=== PATIENT | male | born 1975 | race Hispanic/Latino ===

== ENCOUNTER 2019-07-31 01:07 | Inpatient (IN) | payer BC ==
[2019-07-31] MEDS ORDERED: Aspirin 325 MG TAB ONE (01:22)
[2019-07-31 01:33] LABS: #Basophils 0.1 thou/uL (0.0-0.2); #Eosinphils 0.1 thou/uL (0.0-0.7); #Lymphocytes 2.9 thou/uL (1.20-3.40); #Monocytes 0.7 thou/uL (0.11-0.59); #Neutrophils 4.3 thou/uL (1.40-6.50); %Basophils 1.1 % (0.0-1.0); %Eosinophils 0.7 % (0.0-10.0); %Monocytes 8.9 % (0.0-10.0); %Neutrophils 53.3 % (42.0-75.0); Hemoglobin 16.1 g/dL (14.0-18.0); Mean Corpuscular HGB CONC 34.4 g/dL (32.0-36.0); Mean Corpuscular Hemoglobin 29.9 pg (27.0-31.0); Mean Platelet Volume 8.6 fL (7.4-10.4); Platelet Count 250 thou/uL (130-400); RBC Distribution Width 12.3 % (11.5-14.5); White Blood Cell (WBC) Count 8.1 thou/uL (4.8-10.8)
[2019-07-31 01:54] LABS: ALT (SGPT) 35 U/L (8-55); AST (SGOT) 24 U/L (5-34); Albumin 4.5 g/dL (3.5-5.0); Alkaline Phosphatase 65 U/L (40-150); Anion Gap 14 mmol/L (10-20); BUN (Urea Nitrogen) 12 mg/dL (8.9-20.6); Bilirubin, Total 0.3 mg/dL (0.2-1.2); CK (CPK) 363 U/L (30-200); Calc. Creatinine Clearance 0 mL/min (70-130); Calcium 9.7 mg/dL (7.8-10.44); Carbon Dioxide 27 mmol/L (22-29); Chloride 98 mmol/L (98-107); Estimated GFR-MDRD 64; Globulin 3.8 g/dL (2.4-3.5); Glucose 178 mg/dL (70-105); Lipase 28 U/L (8-78); Potassium 3.4 mmol/L (3.5-5.1); Protein, Total 8.3 g/dL (6.0-8.3); Sodium 136 mmol/L (136-145)
[2019-07-31] MEDS ORDERED: Nitroglycerin 0.4 MG TAB 1 EACH ONE (02:21)
[2019-07-31 02:25] LABS: CKMB 5.4 ng/mL (0-6.6)
[2019-07-31] MEDS ORDERED: cloNIDine 0.1 MG TAB ONE (03:24)
[2019-07-31] MEDS ORDERED: Labetalol HCl 100 MG/20 ML VIAL ONE ×2 (04:17→04:19)
[2019-07-31 05:11] LABS: Troponin I 0.389 ng/mL (< 0.028)
[2019-07-31] MEDS ORDERED: Enoxaparin Sodium 100 MG/ML SYRINGE SC SCH (05:45)
[2019-07-31] MEDS ORDERED: Atorvastatin Calcium 40 MG TAB PO SCH (05:45)
[2019-07-31] MEDS ORDERED: Carvedilol 3.125 MG TAB PO SCH (05:45)
--- NOTE | 2019-07-31 07:50 | RAD ---
EXAM: Portable chest PROVIDED CLINICAL HISTORY: Chest pain COMPARISON: None FINDINGS: The lungs are hypoinflated, limiting evaluation. Resultant crowding of the pulmonary bronchovascular markings. Cardiac and mediastinal silhouette is within normal limits. No focal consolidation, pleural fluid or pneumothorax evident. IMPRESSION: Hypoinflated exam.
[2019-07-31 08:05] LABS: Troponin I 0.717 ng/mL (< 0.028)
[2019-07-31] MEDS ORDERED: Enoxaparin Sodium 80 MG/0.8 ML SYRINGE SC SCH (09:13)
[2019-07-31] MEDS: Enoxaparin Sodium 100 MG/ML SYRINGE SC SCH ×2 (10:29→21:07)
[2019-07-31] MEDS ORDERED: Communication Order-Pharmacy FS SCH (11:15)
[2019-07-31] MEDS ORDERED: Aspirin 325 mg Enteric Coated Tablet PO SCH (11:30)
[2019-07-31] MEDS ORDERED: Lisinopril 2.5 MG TAB PO SCH (11:30)
--- NOTE | 2019-07-31 11:59 | CON ---
DATE OF CONSULTATION: 07/31/2019 REASON FOR CONSULTATION: Fni-VA-ilkrrhypa myocardial infarction. HISTORY OF PRESENT ILLNESS: Mr. Hull is a very pleasant 44-year-old gentleman. He has been recently being having substernal chest pain. He came to the emergency room very early this morning with substernal chest pain and had relief of pain, but the cardiac enzymes have gone up slightly. The patient is pain-free now. The patient had otherwise been in good physical condition. No previous cardiac problems. He does not smoke or use tobacco. The patient did have some shortness of breath associated with the chest pain. MEDICATION: None on a regular basis. SOCIAL HISTORY: No alcohol or tobacco. ALLERGIES: NONE KNOWN. REVIEW OF SYSTEMS: CONSTITUTIONAL: No significant weight gain or loss. HEENT: Vision, no changes. Hearing, no changes. PULMONARY: Positive for shortness of breath with the chest pain. CARDIAC: Positive for chest pain. FAMILY HISTORY: Noncontributory. Negative for heart disease in a young age. PHYSICAL EXAMINATION: GENERAL: He is a pleasant 44-year-old Latin-Tu[place] gentleman, in no distress. VITAL SIGNS: Blood pressure 167/92 followed by 140/83, pulse 72 and regular. HEENT: Eyes, sclerae are nonicteric. Mouth, mucous membranes moist. NECK: Supple. No lymphadenopathy. LUNGS: Clear. No wheezing, rales, or rhonchi. CARDIAC: Normal S1. Normal S2. There is no murmur, rub, or gallop. ABDOMEN: Obese and nontender. No hepatosplenomegaly. EXTREMITIES: Warm and dry. No clubbing, cyanosis, or edema. Good peripheral pulses. Good posterior tibial and dorsalis pedis pulses. LABORATORY DATA: Troponin peak 0.717. EKG this morning is normal. He did have some [address] elevation in leads III and aVF on the initial EKG at 01:16 a.m., but the EKG had improved and was no longer significant just a minute and a half later. EKGs now normal. ASSESSMENT: 1. Dux-MB-tumdlrfwz myocardial infarction. 2. Hypertension. 3. Hypokalemia. 4. Unknown cholesterol status. PLAN: 1. Aspirin. 2. Enoxaparin. 3. Check lipids. 4. Start statins. 5. Tentatively planned cardiac catheterization on Friday. Discussed the procedure to some degree with this gentleman. We will need to further give consent with an additional person. I did discuss the procedure to some degree to explain it to him. We will also need to get informed consent to make sure he understands the risks and benefits of the procedure. Job ID: [id number]
[2019-07-31] MEDS ORDERED: Sodium Chloride 0.9% 1,000 ML IV SCH (12:00)
[2019-07-31 12:09] LABS: Cardiac Risk 6.2 (Less than 4.5)
--- NOTE | 2019-07-31 20:03 | HP ---
CHIEF COMPLAINT: Chest pain. HISTORY OF PRESENT ILLNESS: The patient is a 44-year-old male with past medical history of hypertension, currently not on any blood pressure medication, who presents to the hospital with complaints of chest pain since yesterday. The patient stated that he had pain while he was working, attributed his pain initially to work. However, when he went home, his pain worsened, and he also started having shortness of breath, so he came into the ER for further evaluation. The patient describes his pain as a tightness. Denies any nausea, vomiting, or diaphoresis. Denies any radiating of his pain. PAST MEDICAL HISTORY: Hypertension. ALLERGIES: HE HAS NO KNOWN DRUG ALLERGIES. MEDICATIONS: He takes no medication. REVIEW OF SYSTEMS: All negative except for the ones mentioned above in the HPI. SOCIAL HISTORY: The patient denies any alcohol use, drug use, or smoking history. He is a full code. Lives with his family. PHYSICAL EXAMINATION: VITAL SIGNS: Temperature of 98.1, pulse 72, blood pressure 141/83, respiratory rate 16, and 98% on room air. GENERAL: He is awake, alert, and oriented x3. Lebanese-speaking only. HEENT: Normocephalic and atraumatic. No lymphadenopathy noted. Pupils are equal and reactive to light. CV: S1 and S2 present. No murmurs, rubs, or gallops. LUNGS: Clear to auscultation. No rhonchi or wheezes noted. ABDOMEN: Soft, nontender. Bowel sounds are present x2. EXTREMITIES: No edema. Pedal pulses present x2. NEUROLOGIC: No focal deficits noted. SKIN: No cuts, lesions, or bruises noted. DIAGNOSTIC STUDIES: LABORATORY RESULTS: As of the following; WBCs of 8.1, hemoglobin of 16.1, hematocrit of 47.0, and platelets of 250. Chemistry; sodium of 132, potassium of 3.4, BUN of 12, and creatinine of 1.23. His troponin initially was 0.060, then went up to 0.3, and then 0.7. His triglycerides are 351. His cholesterol is 216. IMAGING STUDIES: He did have a chest x-ray which was hyperinflated on exam. ASSESSMENT AND PLAN: The patient is a 44-year-old male who presents to the hospital with complaints of chest pain. 1. Iea-UK-pibzltm elevation myocardial infarction. We will put the patient on enoxaparin. Cardiology has been consulted. Also, continue aspirin and statin. Possible, the patient will undergo cardiac cath on Friday. 2. Hypertension, uncontrolled. The patient is not currently on any medications. We will put him on a low-sodium diet. Also, we will start him on some blood pressure medications and continue to monitor. 3. Obesity. We will continue to educate patient about weight loss, diet, and exercise. 4. Deep venous thrombosis prophylaxis. The patient is already on Lovenox. Job ID: [id number]
[2019-07-31] MEDS: Carvedilol 3.125 MG TAB PO SCH (21:07)
[2019-08-01] MEDS ORDERED: Lisinopril 2.5 MG TAB PO SCH ×3 (09:00→09:45)
[2019-08-01] MEDS: Enoxaparin Sodium 100 MG/ML SYRINGE SC SCH ×2 (10:09→21:22)
[2019-08-01] MEDS: Aspirin 325 mg Enteric Coated Tablet PO SCH (10:09)
[2019-08-01] MEDS: Carvedilol 3.125 MG TAB PO SCH ×2 (10:09→21:21)
[2019-08-01] MEDS: Atorvastatin Calcium 40 MG TAB PO SCH (10:09)
--- NOTE | 2019-08-01 13:40 | PDOC.HOSPP ---
- Subjective Encounter Date: 08/01/19 Encounter Time: 09:00 Subjective: pt up in bed no complains - Objective Vital Signs & Weight: Vital Signs (12 hours) Temp Pulse Resp BP Pulse Ox 08/01/19 11:30 98 F 61 18 144/80 H 97 08/01/19 10:10 58 L 08/01/19 10:08 58 L 08/01/19 08:00 98 F 85 18 141/92 H 98 08/01/19 04:00 97.9 F 58 L 18 158/82 H 96 Weight Weight 210 lb 12.8 oz I&O: 07/31/19 08/01/19 08/02/19 06:59 06:59 06:59 Intake Total 1200 Output Total 510 Balance 690 Result Diagrams: 07/31/19 01:21 07/31/19 01:21 Hospitalist ROS - Review of Systems Respiratory: denies: cough, dry, shortness of breath, hemoptysis, SOB with excertion, pleuritic pain, sputum, wheezing, other Cardiovascular: denies: chest pain, palpitations, orthopnea, paroxysmal noc. dyspnea, edema, light headedness, other Gastrointestinal: denies: nausea, vomitting, abdominal pain, diarrhea, constipation, melena, hematochezia, other - Medication Medications: Active Medications Generic Name Dose Route Start Last Admin Trade Name Freq PRN Reason Stop Dose Admin Aspirin 325 mg 08/01/19 09:00 08/01/19 10:09 Ecotrin PO 325 mg DAILY HARRIETT Administration Atorvastatin Calcium 40 mg 08/01/19 09:00 08/01/19 10:09 Lipitor PO 40 mg DAILY HARRIETT Administration Carvedilol 3.125 mg 07/31/19 21:00 08/01/19 10:09 Coreg PO 3.125 mg BID HARRIETT Administration Enoxaparin Sodium 100 mg 07/31/19 09:00 08/01/19 10:09 Lovenox SC 08/01/19 22:00 100 mg 0900,2100 HARRIETT Administration - Exam Heart: negative: RRR, no murmur, no gallops, no rubs, normal peripheral pulses, irregular, diminshed peripheral pulses, murmur present, II/IV, III/IV Respiratory: negative: CTAB, no wheezes, no rales, no ronchi, normal chest expansion, no tachypnea, normal percussion, rales, rhonchi, tachypneic, wheezes Gastrointestinal: negative: soft, non-tender, non-distended, normal bowel sounds , no palpable masses, no hepatomegaly, no splenomegaly, no bruit, no guarding, no rigidity, tender to palpation, distended, diminished bowl sounds, voluntary guarding Hosp A/P (1) NSTEMI (non-ST elevated myocardial infarction) Code(s): I21.4 - NON-ST ELEVATION (NSTEMI) MYOCARDIAL INFARCTION Status: Acute (2) HTN (hypertension) Code(s): I10 - ESSENTIAL (PRIMARY) HYPERTENSION Status: Acute (3) Obesity Code(s): E66.9 - OBESITY, UNSPECIFIED Status: Acute - Plan will continue lovonox for now. npo after midnight for cardiac cath. will adjust bp meds.
[2019-08-02] MEDS: Sodium Chloride 0.9% 1,000 ML IV SCH ×2 (06:24→17:54)
[2019-08-02] MEDS: Carvedilol 3.125 MG TAB PO SCH (06:29)
[2019-08-02] MEDS: Aspirin 325 mg Enteric Coated Tablet PO SCH (07:48)
[2019-08-02] MEDS ORDERED: Lidocaine 1% (PF) 30 ML VIAL ONE (08:36)
[2019-08-02] MEDS: Atorvastatin Calcium 40 MG TAB PO SCH (08:50)
[2019-08-02] MEDS ORDERED: Lisinopril 5 MG TAB PO SCH (09:00)
[2019-08-02] MEDS ORDERED: Lisinopril 2.5 MG TAB PO SCH (09:00)
[2019-08-02] MEDS ORDERED: Fentanyl 100 MCG/2 ML VIAL ONE (09:13)
[2019-08-02] MEDS ORDERED: Midazolam HCl 2 mg/2 ml Vial ONE (09:13)
[2019-08-02] MEDS ORDERED: Metoprolol Tartrate 5 MG/5 ML VIAL ONE (09:33)
[2019-08-02] MEDS ORDERED: Carvedilol 3.125 MG TAB PO SCH (09:34)
[2019-08-02] MEDS ORDERED: Carvedilol 6.25 MG TAB PO SCH (09:45)
[2019-08-02] MEDS ORDERED: Nitroglycerin 2% Ointment 1 INCH/1 GM Packet ONE (09:47)
[2019-08-02] MEDS ORDERED: Acetaminophen/Codeine 30-300mg Tablet PO PRN ×2 (10:02)
[2019-08-02] MEDS ORDERED: Sodium Chloride 0.9% 200 ML IV PRN (10:02)
[2019-08-02] MEDS ORDERED: Iopamidol 370 76% 100 ML VIAL ONE (10:04)
--- NOTE | 2019-08-02 16:47 | EKG ---
Test Reason : Blood Pressure : / mmHG Vent. Rate : 071 BPM Atrial Rate : 071 BPM P-R Int : 138 ms QRS Dur : 086 ms QT Int : 382 ms P-R-T Axes : 020 039 030 degrees QTc Int : 415 ms Normal sinus rhythm Normal ECG Confirmed by ZACK ZHANG ([id number]) on 08/02/2019 4:47:26 PM Referred By: Confirmed By:ZACK ZHANG
--- NOTE | 2019-08-02 17:21 | PDOC.HOSPP ---
- Subjective Encounter Date: 08/02/19 Encounter Time: 13:00 Subjective: pt up in bed no complains - Objective Vital Signs & Weight: Vital Signs (12 hours) Temp Pulse Resp BP BP Pulse Ox 08/02/19 16:00 98.3 F 65 16 131/73 99 08/02/19 12:00 98.4 F 60 16 132/76 99 08/02/19 11:33 125/80 08/02/19 08:50 63 08/02/19 08:49 63 08/02/19 07:33 97.9 F 63 18 160/92 H 99 Weight Weight 210 lb 12.8 oz I&O: 08/01/19 08/02/19 08/03/19 06:59 06:59 06:59 Intake Total 1200 1730 240 Output Total 510 650 Balance 690 1080 240 Result Diagrams: 07/31/19 01:21 07/31/19 01:21 Hospitalist ROS - Review of Systems Cardiovascular: denies: chest pain, palpitations, orthopnea, paroxysmal noc. dyspnea, edema, light headedness, other Gastrointestinal: denies: nausea, vomitting, abdominal pain, diarrhea, constipation, melena, hematochezia, other Genitourinary: denies: dysuria, frequency, incontinence, hematuria, retention, other - Medication Medications: Active Medications Generic Name Dose Route Start Last Admin Trade Name Rogersq PRN Reason Stop Dose Admin Aspirin 325 mg 08/01/19 09:00 08/02/19 07:48 Ecotrin PO Not Given DAILY [facility] Atorvastatin Calcium 40 mg 08/01/19 09:00 08/02/19 08:50 Lipitor PO 40 mg DAILY HARRIETT Administration - Exam Neck: negative: supple, symmetric, no JVD, no thyromegaly, no lymphadenopathy, no carotid bruit, JVD Heart: negative: RRR, no murmur, no gallops, no rubs, normal peripheral pulses, irregular, diminshed peripheral pulses, murmur present, II/IV, III/IV Respiratory: negative: CTAB, no wheezes, no rales, no ronchi, normal chest expansion, no tachypnea, normal percussion, rales, rhonchi, tachypneic, wheezes Skin - other findings: right groin site appears intact, good pedal pulses Hosp A/P (1) NSTEMI (non-ST elevated myocardial infarction) Code(s): I21.4 - NON-ST ELEVATION (NSTEMI) MYOCARDIAL INFARCTION Status: Acute (2) HTN (hypertension) Code(s): I10 - ESSENTIAL (PRIMARY) HYPERTENSION Status: Acute (3) Obesity Code(s): E66.9 - OBESITY, UNSPECIFIED Status: Acute - Plan will continue lovonox for now. npo after midnight for cardiac cath. will adjust bp meds. 08/02 pt underwent a cardiac cath. Has 3 vessel disease. CV surgery has been consulted. will titrate his bp meds. He has been started on statin.
[2019-08-02] MEDS ORDERED: Communication Order-Pharmacy FS SCH (18:06)
[2019-08-02 18:53] LABS: Hemoglobin A1c 5.8 % (4.0-6.0)
[2019-08-02] MEDS: Carvedilol 6.25 MG TAB PO SCH (22:06)
--- NOTE | 2019-08-02 22:10 | CON ---
DATE OF CONSULTATION: HISTORY OF PRESENT ILLNESS: A 44-year-old gentleman who works in local [employer] shop [employer] previously in good health until he developed chest pain, nausea, and dyspnea prompting emergency room visit, noted to have an elevated troponin. He from there, underwent cardiac catheterization today by Dr. Lr, where he was found to have three-vessel coronary disease. His resting EKG showed some T-wave flattening anterolaterally. Cardiac cath showed 60% to 70% LAD and diagonal lesions. Circumflex consisted of a 1st obtuse marginal, perhaps with a 40% lesion and a 2nd obtuse marginal that was rather small with about a 90% lesion. The right coronary artery had serial lesions with one being about 80% or 90%. Distally, he had multiple small branches that may not be bypassable and the distal right might be a target. PAST MEDICAL HISTORY: Includes hypertension, currently on no medications. He has last seen a doctor a year or 2 ago. Since this admission, he was noted to have a blood sugar of about 180. His cholesterol was 211 and his triglycerides were greater than 300. PAST SURGICAL HISTORY: Negative. SOCIAL HISTORY: He has never been a smoker or drinker. He is , Sudanese-speaking only. PHYSICAL EXAMINATION: GENERAL: He is an alert, cooperative gentleman. VITAL SIGNS: Height 5 feet 2 inches, weight 210, BMI 38. NECK: No carotid bruits. CARDIAC: Regular rate and rhythm with perhaps a soft systolic murmur at the right upper sternal border. ABDOMEN: Obese. EXTREMITIES: Without edema with a palpable pedal pulse in both feet. His left arm is nondominant and he has a good Amos test on his left arm. ASSESSMENT AND PLAN: Potential targets include an LAD, distal right coronary artery. Whether the distal OM is bypassable, we will have to see during surgery and the diagonals may be a target, although he has noncritical disease. I have gone over the procedure, risk and complications through an gm on the floor and informed consent has been obtained. Job ID: [id number]
[2019-08-03] MEDS: Carvedilol 6.25 MG TAB PO SCH ×2 (05:28→20:33)
[2019-08-03] MEDS ORDERED: Nitroglycerin 0.4 MG TAB (25 Tab Bottle) ONE (06:08)
[2019-08-03] MEDS: Lisinopril 5 MG TAB PO SCH (06:10)
[2019-08-03] MEDS: Nitroglycerin 0.4 MG TAB (25 Tab Bottle) SL PRN ×2 (06:12→06:20)
[2019-08-03] MEDS ORDERED: hydrALAZINE 20 MG/ML VIAL SLOW IVP PRN (06:28)
[2019-08-03] MEDS ORDERED: Morphine 2 MG/ML SYRINGE SLOW IVP SCH (06:30)
[2019-08-03] MEDS ORDERED: Albumin 5% 0 ML ONE (06:31)
[2019-08-03] MEDS ORDERED: Fentanyl 100 MCG/2 ML VIAL ONE ×2 (06:34→08:01)
[2019-08-03] MEDS ORDERED: Midazolam HCl 2 mg/2 ml Vial ONE (06:34)
[2019-08-03] MEDS ORDERED: Midazolam HCl 5 mg/5 ml Vial ONE (06:34)
[2019-08-03] MEDS ORDERED: Dexmedetomidine 200 MCG/2 ML VIAL ONE (06:35)
[2019-08-03] MEDS ORDERED: Vecuronium 10 MG VIAL ONE (06:35)
[2019-08-03] MEDS ORDERED: Nitroglycerin 50 MG/250 ML BOT 250 ML ONE (06:45)
[2019-08-03] MEDS ORDERED: Heparin 10,000 UNITS/1 ML VIAL 30,000 UNITS in Sodium Chloride 0.9% 1,000 ML FS SCH (06:45)
[2019-08-03] MEDS ORDERED: Morphine 2 MG/ML SYRINGE SLOW IVP PRN (07:07)
[2019-08-03] MEDS ORDERED: Lidocaine 1% (PF) 30 ML VIAL ONE ×2 (07:14→10:00)
[2019-08-03] MEDS ORDERED: Heparin 5,000 UNITS/ML VIAL SLOW IVP SCH (07:15)
[2019-08-03] MEDS ORDERED: Nitroglycerin 100MG/250ML BOT 250 ML ONE (07:39)
[2019-08-03] MEDS ORDERED: Heparin 10,000 UNITS/1 ML VIAL ONE ×2 (07:39→09:22)
[2019-08-03] MEDS ORDERED: TICAGRELOR 90 MG TABLET ONE (09:55)
[2019-08-03] MEDS ORDERED: Iopamidol 370 76% 100 ML VIAL ONE (10:05)
[2019-08-03] MEDS ORDERED: Iopamidol 370 76% 50 ML VIAL FS ONE (10:05)
--- NOTE | 2019-08-03 10:40 | PRG ---
DATE OF SERVICE: 08/03/2019 SUBJECTIVE: Mr. Otero was scheduled for bypass surgery this morning, but started having severe chest pain and had severe ST elevation in the inferior leads. It was not advisable to go directly to the operating room in the midst of myocardial infarction. Therefore, he was taken in an emergency basis to the cardiac catheterization lab, but there was found that the right coronary artery was occluded and was successfully stented with two stents. IMPRESSION AND PLAN: Please see the notes concerning that procedure. The patient was still ultimately need bypass surgery, but this was done in an emergency basis in view of the acute ST-elevation myocardial infarction. Job ID: [id number]
[2019-08-03] MEDS: Sodium Chloride 0.9% 1,000 ML IV SCH ×2 (11:09→16:39)
[2019-08-03 11:33] LABS: Troponin I 38.047 ng/mL (< 0.028)
[2019-08-03] MEDS ORDERED: Nitroglycerin 50 MG/250 ML BOT 250 ML IVPB SCH (11:45)
[2019-08-03] MEDS ORDERED: Amlodipine 5 MG TAB PO SCH (11:45)
--- NOTE | 2019-08-03 12:24 | EKG ---
Test Reason : REPEAT Blood Pressure : / mmHG Vent. Rate : 067 BPM Atrial Rate : 067 BPM P-R Int : 132 ms QRS Dur : 092 ms QT Int : 384 ms P-R-T Axes : 013 070 081 degrees QTc Int : 405 ms Normal sinus rhythm ST elevation consider inferolateral injury or acute infarct * ACUTE MD * Consider right ventricular involvement in acute inferior infarct Abnormal ECG No previous ECGs available Confirmed by DR. Adi HERMAN ([id number]) on 08/03/2019 12:24:28 PM Referred By: TY Confirmed By:DR. Adi HERMAN
[2019-08-03] MEDS ORDERED: Ondansetron PF 4 MG/2 ML Vial SLOW IVP PRN (12:35)
--- NOTE | 2019-08-03 13:02 | CCL ---
Please see the computer generated cath note. The patient had acute ST elevation myocardial infarction and was taken to the Catheterization Lab on an emergency basis. The vessel had completely occluded. A distal stent, a 3.5 x 20 nondrug coated stent was placed distally and then a 3.5 x 16 more proximal ly. There did appear to be some mild distal disease distal to the proximal stent. We dilated the vess el up to 4 mm high pressure but could never get a stent to go passed that initial stent. Dilated the vessels as mentioned to [address] the guide more deeply in the artery and put the wire very distally. A lot of maneuvers were made to try to stent the more distal area but it was not successful. The patient's chest pain and EKG changes had all resolved. He is asymptomatic. Will u ltimately still need bypass surgery.
--- NOTE | 2019-08-03 17:45 | CON ---
DATE OF CONSULTATION: HISTORY OF PRESENT ILLNESS: Branden Eastman is a 44-year-old gentleman, who speaks no Chinese. I got history from talking with the patient with the help of a niece, who states that he has no medical problems. No history of diabetes or hypertension. No previous surgeries. Having chest pain in the hospital here, while he was scheduled to undergo a bypass surgery. Emergency cardiac cath, three stents were placed in by Dr. Lr. He has severe ST-segment elevation in his inferior leads. He is now in the ICU and the reason for consult. Appears to be asymptomatic. No pain. No discomfort. PAST MEDICAL HISTORY: As noted, negative. PAST SURGICAL HISTORY: None. CHRONIC MEDICATIONS: None. ALLERGIES: NONE. SOCIAL HISTORY: He works for [employer]. REVIEW OF SYSTEMS: Ten-point negative. PHYSICAL EXAMINATION: VITAL SIGNS: Blood pressure 103/72, saturation 99%. CHEST: No wheezing or crackles. CARDIAC: Normal S1 and S2. No gallops. ABDOMEN: No masses. LABORATORY DATA: Troponin is 59. His last chest x-ray was normal. ASSESSMENT: Acute coronary syndrome, status post emergent cardiac cath and stent insertion. PLAN: Pulmonary kerr, we will continue ICU observation and cardiac care. Pulmonary will follow while in the ICU. Consultation note, 70 minutes, 50% direct patient care. Job ID: [id number]
--- NOTE | 2019-08-03 17:46 | PDOC.HOSPP ---
- Subjective Encounter Date: 08/03/19 Encounter Time: 17:45 Subjective: Pt seen for followup re; STEMI. s/p cath, feels better. - Objective Vital Signs & Weight: Vital Signs (12 hours) Temp Pulse Resp BP BP Pulse Ox 08/03/19 16:00 99.3 F 08/03/19 12:12 99.0 F 08/03/19 10:15 100 08/03/19 10:10 98.6 F 08/03/19 06:41 61 16 175/107 H 100 08/03/19 06:25 61 17 164/103 H 97 08/03/19 06:18 63 18 221/118 H 94 L 08/03/19 06:10 64 20 180/88 H 245/135 H 94 L Weight Weight 210 lb 12.8 oz Most Recent Monitor Data Heart Rate from ECG 67 NIBP 124/82 NIBP BP-Mean 96 Respiration from ECG 20 SpO2 100 I&O: 08/02/19 08/03/19 08/04/19 06:59 06:59 06:59 Intake Total 1730 1960 230 Output Total 650 1200 300 Balance 1080 760 -70 Result Diagrams: 08/04/19 04:27 08/04/19 04:27 Additional Labs: Accuchecks 08/03/19 05:12 POC Glucose 98 labs and MARs reviewed by me EKG Reviewed by me: Yes (Tele: NSR) Hospitalist ROS - Review of Systems Respiratory: denies: cough, dry, shortness of breath, hemoptysis, SOB with excertion, pleuritic pain, sputum, wheezing Cardiovascular: denies: chest pain, palpitations, orthopnea, paroxysmal noc. dyspnea, edema, light headedness - Medication Medications: Active Medications Generic Name Dose Route Start Last Admin Trade Name Freq PRN Reason Stop Dose Admin Carvedilol 12.5 mg 08/02/19 21:00 08/03/19 05:28 Coreg PO 12.5 mg BID HARRIETT Administration Sodium Chloride 1,000 mls @ 100 mls/hr 08/03/19 10:15 08/03/19 16:39 Normal Saline 0.9% IV 1,000 mls .Q10H HARRIETT Administration Lisinopril 10 mg 08/03/19 09:00 08/03/19 06:10 Zestril PO 10 mg DAILY HARRIETT Administration Morphine Sulfate 2 mg 08/03/19 07:07 08/03/19 07:21 Morphine SLOW IVP 2 mg Q5MIN PRN Administration Pain Sodium Chloride 10 ml 08/02/19 21:00 08/03/19 11:13 Flush - Normal Saline IVF 10 ml Q12HR HARRIETT Administration - Exam General - other findings: Obese Eye: anicteric sclera ENT: moist mucosa Neck: supple Heart: RRR, no rubs Respiratory: CTAB Gastrointestinal: soft, normal bowel sounds Extremities: no edema Musculoskeletal: no muscle wasting Psychiatric: normal affect, normal behavior Hosp A/P (1) STEMI (ST elevation myocardial infarction) Status: Acute (2) HTN (hypertension) Code(s): I10 - ESSENTIAL (PRIMARY) HYPERTENSION Status: Chronic (3) Obesity Code(s): E66.9 - OBESITY, UNSPECIFIED Status: Chronic - Plan Pt s/p PCI with two stents to RCA. Plan for CABG due to CAD. BP stable.
[2019-08-03] MEDS ORDERED: Aspirin 81 mg Enteric Coated Tablet PO SCH (18:45)
[2019-08-03] MEDS: TICAGRELOR 90 MG TABLET PO SCH (20:34)
[2019-08-03 20:58] LABS: Troponin I 72.618 ng/mL (< 0.028)
[2019-08-04 04:34] LABS: #Lymphocytes 1.7 thou/uL (1.20-3.40); #Monocytes 1.3 thou/uL (0.11-0.59); #Neutrophils 8.2 thou/uL (1.40-6.50); %Basophils 0.3 % (0.0-1.0); %Eosinophils 0.3 % (0.0-10.0); %Lymphocytes 15.1 % (21.0-51.0); %Monocytes 11.4 % (0.0-10.0); %Neutrophils 72.9 % (42.0-75.0); Hemoglobin 13.9 g/dL (14.0-18.0); Mean Corpuscular HGB CONC 33.1 g/dL (32.0-36.0); Mean Corpuscular Hemoglobin 29.3 pg (27.0-31.0); Mean Corpuscular Volume 88.4 fL (78.0-98.0); Mean Platelet Volume 8.7 fL (7.4-10.4); Platelet Count 236 thou/uL (130-400); RBC Distribution Width 12.2 % (11.5-14.5); Red Blood Cell (RBC) Count 4.74 mill/uL (4.70-6.10); White Blood Cell (WBC) Count 11.2 thou/uL (4.8-10.8)
[2019-08-04 04:57] LABS: ALT (SGPT) 136 U/L (8-55); AST (SGOT) 232 U/L (5-34); Albumin 3.7 g/dL (3.5-5.0); Alkaline Phosphatase 48 U/L (40-150); Anion Gap 12 mmol/L (10-20); BUN (Urea Nitrogen) 11 mg/dL (8.9-20.6); Bilirubin, Total 0.6 mg/dL (0.2-1.2); Calc. Creatinine Clearance 150 mL/min (70-130); Calcium 8.8 mg/dL (7.8-10.44); Carbon Dioxide 24 mmol/L (22-29); Chloride 106 mmol/L (98-107); Estimated GFR-MDRD Greater than 90; Globulin 2.9 g/dL (2.4-3.5); Glucose 108 mg/dL (70-105); Potassium 3.9 mmol/L (3.5-5.1); Protein, Total 6.6 g/dL (6.0-8.3); Sodium 138 mmol/L (136-145)
[2019-08-04] MEDS: Sodium Chloride 0.9% 1,000 ML IV SCH (05:05)
--- NOTE | 2019-08-04 07:46 | EKG ---
Test Reason : Blood Pressure : / mmHG Vent. Rate : 072 BPM Atrial Rate : 072 BPM P-R Int : 138 ms QRS Dur : 094 ms QT Int : 364 ms P-R-T Axes : 009 066 087 degrees QTc Int : 398 ms Normal sinus rhythm ST elevation consider inferolateral injury or acute infarct * ACUTE PA * Abnormal ECG When compared with ECG of 31-JUL-2019 10:49, ST elevation now present in Inferior leads Non-specific change in ST segment in Lateral leads Confirmed by DR. Adi HERMAN (3) on 08/04/2019 7:46:35 AM Referred By: JOSEFINA Confirmed By:DR. Adi HERMAN
--- NOTE | 2019-08-04 08:23 | PRG ---
DATE OF SERVICE: 08/04/2019 SUBJECTIVE: This morning, no further chest pain, no shortness of breath. Status post emergency cardiac cath. OBJECTIVE: VITAL SIGNS: Saturations are 90% on room air, blood pressure 138/90, respiratory rate 18, pulse 80. CHEST: No wheezing or crackles. CARDIAC: Normal S1 and S2. No gallops. ABDOMEN: No mass. ASSESSMENT AND PLAN: 1. Coronary artery disease, status post multiple stents. 2. Mildly elevated blood sugar. Disposition as per Cardiology. Pulmonary will follow at a distance. Job ID: [id number]
[2019-08-04] MEDS: Carvedilol 6.25 MG TAB PO SCH ×2 (08:38→21:14)
[2019-08-04] MEDS: Aspirin 81 mg Enteric Coated Tablet PO SCH (08:38)
[2019-08-04] MEDS: Lisinopril 5 MG TAB PO SCH (08:39)
[2019-08-04] MEDS: TICAGRELOR 90 MG TABLET PO SCH ×2 (08:40→21:14)
--- NOTE | 2019-08-04 09:10 | PRG ---
DATE OF SERVICE: 08/04/2019 SUBJECTIVE: Mr. Jaren Otero is doing well today. He is sitting up in the chair. No complaints. OBJECTIVE: VITAL SIGNS: Blood pressure is 138/93, pulse is 75 and regular. LUNGS: Clear. CARDIAC: Normal S1, normal S2. ABDOMEN: Soft, nontender. ASSESSMENT: 1. Three-vessel coronary artery disease. 2. Status post ST-elevation myocardial infarction yesterday, treated with two stents. PLAN: 1. He is on aspirin. 2. Brilinta. 3. Lisinopril. 4. Carvedilol. 5. Add statin. 6. Transfer to telemetry. Job ID: [id number]
--- NOTE | 2019-08-04 17:16 | PDOC.HOSPP ---
- Subjective Encounter Date: 08/04/19 Encounter Time: 12:40 Subjective: Pt seen for followup re: STEMI. No complaints today. - Objective Vital Signs & Weight: Vital Signs (12 hours) Temp Pulse Pulse Pulse BP BP BP 08/04/19 16:00 98.9 F 08/04/19 12:00 98.5 F 08/04/19 09:45 75 76 158/105 H 150/94 H 08/04/19 08:39 75 152/90 H 08/04/19 08:38 152/90 H 08/04/19 07:44 08/04/19 07:00 98.9 F Pulse Ox Pulse Ox Pulse Ox 08/04/19 16:00 08/04/19 12:00 08/04/19 09:45 98 98 08/04/19 08:39 08/04/19 08:38 08/04/19 07:44 97 08/04/19 07:00 Weight Weight 210 lb 12.8 oz Most Recent Monitor Data Heart Rate from ECG 73 NIBP 127/84 NIBP BP-Mean 98 Respiration from ECG 19 SpO2 97 I&O: 08/03/19 08/04/19 08/05/19 06:59 06:59 06:59 Intake Total 1960 1154 930 Output Total 1200 1250 1050 Balance 760 -96 -120 Result Diagrams: 08/04/19 04:27 08/04/19 04:27 Additional Labs: Labs and MARs reviewed by me EKG Reviewed by me: Yes (Tele; NSR) Hospitalist ROS - Review of Systems Cardiovascular: denies: chest pain, palpitations, orthopnea, paroxysmal noc. dyspnea, edema, light headedness Gastrointestinal: denies: nausea, vomiting, abdominal pain, diarrhea, constipation, melena, hematochezia - Medication Medications: Active Medications Generic Name Dose Route Start Last Admin Trade Name Freq PRN Reason Stop Dose Admin Aspirin 81 mg 08/04/19 09:00 08/04/19 08:38 Ecotrin PO 81 mg DAILY HARRIETT Administration Carvedilol 12.5 mg 08/02/19 21:00 08/04/19 08:38 Coreg PO 12.5 mg BID HARRIETT Administration Lisinopril 10 mg 08/03/19 09:00 08/04/19 08:39 Zestril PO 10 mg DAILY HARRIETT Administration Sodium Chloride 10 ml 08/02/19 21:00 08/04/19 08:40 Flush - Normal Saline IVF 10 ml Q12HR HARRIETT Administration Ticagrelor 90 mg 08/03/19 21:00 08/04/19 08:40 Brilinta PO 90 mg BID HARRIETT Administration - Exam General - other findings: Obese Eye: anicteric sclera ENT: moist mucosa Neck: supple Heart: RRR Respiratory: CTAB Gastrointestinal: soft, non-tender Neurological: no weakness Musculoskeletal: no muscle wasting Psychiatric: normal affect, normal behavior Hosp A/P (1) STEMI (ST elevation myocardial infarction) Status: Acute (2) HTN (hypertension) Code(s): I10 - ESSENTIAL (PRIMARY) HYPERTENSION Status: Chronic (3) Obesity Code(s): E66.9 - OBESITY, UNSPECIFIED Status: Chronic - Plan s/p PCI. Plan for CABG due to multivessel CAD. BP stable.
--- NOTE | 2019-08-04 18:21 | EKG ---
Test Reason : Blood Pressure : / mmHG Vent. Rate : 068 BPM Atrial Rate : 068 BPM P-R Int : 142 ms QRS Dur : 092 ms QT Int : 402 ms P-R-T Axes : 037 -13 -52 degrees QTc Int : 427 ms Normal sinus rhythm Inferior infarct , age undetermined evolving appearance Abnormal ECG Confirmed by DR. Adi HERMAN (3) on 08/04/2019 6:21:08 PM Referred By: TY Confirmed By:DR. Adi HERMAN
[2019-08-04] MEDS: Rosuvastatin 20 MG TAB PO SCH (21:15)
[2019-08-05] MEDS: Lisinopril 5 MG TAB PO SCH (08:45)
[2019-08-05] MEDS: Aspirin 81 mg Enteric Coated Tablet PO SCH (08:45)
[2019-08-05] MEDS: Carvedilol 6.25 MG TAB PO SCH ×2 (08:45→20:30)
[2019-08-05] MEDS: TICAGRELOR 90 MG TABLET PO SCH ×2 (08:46→20:31)
[2019-08-05] MEDS ORDERED: Bisacodyl 5 MG TAB PO PRN (10:08)
[2019-08-05] MEDS ORDERED: Bisacodyl 5 MG TAB PO SCH (10:15)
[2019-08-05] MEDS ORDERED: Clopidogrel Bisulfate 300 MG TAB PO SCH (10:15)
--- NOTE | 2019-08-05 10:40 | PRG ---
DATE OF SERVICE: 08/05/2019 SUBJECTIVE: Mr. Otero is doing well at rest, but with exertion he feels chest pressure. OBJECTIVE: VITAL SIGNS: His blood pressure is 122/75, pulse 76 and regular. LUNGS: Clear. CARDIAC: Normal S1 and normal S2. ABDOMEN: Soft and nontender. ASSESSMENT: 1. Three-vessel coronary artery disease. 2. Status post ST-elevation myocardial infarction of the right coronary artery. 3. Continued exertional angina. PLAN: We will discuss with Dr. Petersen. Consider keeping him here in the hospital, taking him off Brilinta and changing to Plavix and proceeding the surgery next week. Job ID: [id number]
--- NOTE | 2019-08-05 10:54 | PRG ---
DATE OF SERVICE: 08/05/2019 SUBJECTIVE: Mr. Otero is doing well. He is not having any chest pain at rest, but he says when he gets up and walks in the [place], he has chest pressure. OBJECTIVE: VITAL SIGNS: The patient's blood pressure 120/75, pulse 70 and it is regular. LUNGS: Clear. CARDIAC: Normal S1 and normal S2. ABDOMEN: Soft and nontender. His groin is not tender. Reviewed the cardiac catheterization films as we had outlined previously, does have three-vessel coronary artery disease. ASSESSMENT: 1. Some exertional angina, none at rest. 2. Recent ST-elevation myocardial infarction. PLAN: We will discuss with Dr. Petersen. Consideration for changing him for Brilinta to Plavix in keeping in the hospital and proceeding to surgery here next week. We will discuss with Dr. Petersen. Job ID: [id number]
--- NOTE | 2019-08-05 13:06 | PDOC.HOSPP ---
- Subjective Encounter Date: 08/05/19 Encounter Time: 07:00 Subjective: Pt seen for followup re: STEMI. Feels well, no complaints. - Objective Vital Signs & Weight: Vital Signs (12 hours) Temp Pulse Pulse Pulse Resp BP BP 08/05/19 11:28 97.7 F 65 17 08/05/19 09:49 70 76 125/78 122/75 08/05/19 07:33 98.6 F 76 17 08/05/19 03:30 98.5 F 71 16 BP Pulse Ox Pulse Ox Pulse Ox 08/05/19 11:28 130/75 98 08/05/19 09:49 99 98 08/05/19 07:33 132/83 98 08/05/19 03:30 133/83 96 Weight Weight 210 lb 12.8 oz Most Recent Monitor Data Heart Rate from ECG 77 NIBP 141/91 NIBP BP-Mean 107 Respiration from ECG 27 SpO2 98 I&O: 08/04/19 08/05/19 08/06/19 06:59 06:59 06:59 Intake Total 1154 1830 Output Total 1250 1450 Balance -96 380 Result Diagrams: 08/04/19 04:27 08/04/19 04:27 Additional Labs: Labs and MARs reviewed by fl Hospitalist ROS - Review of Systems Cardiovascular: denies: chest pain, palpitations, orthopnea, paroxysmal noc. dyspnea, edema, light headedness Gastrointestinal: denies: nausea, vomiting, abdominal pain, diarrhea, constipation, melena, hematochezia - Medication Medications: Active Medications Generic Name Dose Route Start Last Admin Trade Name Freq PRN Reason Stop Dose Admin Aspirin 81 mg 08/04/19 09:00 08/05/19 08:45 Ecotrin PO 81 mg DAILY [facility]T Administration Carvedilol 12.5 mg 08/02/19 21:00 08/05/19 08:45 Coreg PO 12.5 mg BID HAR[facility]T Administration Lisinopril 10 mg 08/03/19 09:00 08/05/19 08:45 Zestril PO 10 mg DAILY [facility]T Administration Rosuvastatin Calcium 40 mg 08/04/19 21:00 08/04/19 21:15 Crestor PO 40 mg HS [facility]ETT Administration Sodium Chloride 10 ml 08/02/19 21:00 08/05/19 08:46 Flush - Normal Saline IVF 10 ml Q12HR [facility]RIETT Administration - Exam General - other findings: Obese Eye: anicteric sclera ENT: moist mucosa Neck: supple Heart: RRR Respiratory: CTAB Gastrointestinal: soft, non-tender Extremities: no clubbing Musculoskeletal: normal strength Psychiatric: normal affect, normal behavior Hosp A/P (1) STEMI (ST elevation myocardial infarction) Status: Acute (2) HTN (hypertension) Code(s): I10 - ESSENTIAL (PRIMARY) HYPERTENSION Status: Chronic (3) Obesity Code(s): E66.9 - OBESITY, UNSPECIFIED Status: Chronic - Plan PT/OT, out of bed/ambulate s/p PCI. Plan for CABG due to multivessel CAD vs PCI of LAD. BP stable.
[2019-08-05] MEDS: Rosuvastatin 20 MG TAB PO SCH (20:31)
[2019-08-06] MEDS: Nitroglycerin 0.4 MG TAB (25 Tab Bottle) ONE ×3 (03:38→03:53)
[2019-08-06] MEDS ORDERED: Nitroglycerin 0.4 MG TAB (25 Tab Bottle) SL PRN (03:58)
[2019-08-06] MEDS ORDERED: Morphine 2 MG/ML SYRINGE SLOW IVP SCH (04:00)
[2019-08-06] MEDS: Carvedilol 6.25 MG TAB PO SCH ×2 (08:09→21:21)
[2019-08-06] MEDS: Aspirin 81 mg Enteric Coated Tablet PO SCH (08:10)
[2019-08-06] MEDS: TICAGRELOR 90 MG TABLET PO SCH ×2 (08:10→20:48)
[2019-08-06] MEDS: Lisinopril 5 MG TAB PO SCH (08:10)
[2019-08-06] MEDS ORDERED: Clopidogrel Bisulfate 75 MG TAB PO SCH (09:00)
--- NOTE | 2019-08-06 12:21 | PRG ---
DATE OF SERVICE: 08/06/2019 SUBJECTIVE: Mr. Jaren Otero had some more chest pain last night. He said it was identical to his initial pain, it is not as intense. He did require nitrates and morphine for pain relief. He is pain-free now, but apprehensive. OBJECTIVE: VITAL SIGNS: Blood pressure 134/76, pulse 70. LUNGS: Clear. CARDIAC: Normal S1, normal S2. ABDOMEN: Soft, nontender. EXTREMITIES: There is no edema. ASSESSMENT: 1. Recurrent angina. 2. Three-vessel coronary artery disease. PLAN: We will discuss again with Dr. Petersen, and the patient is not able to go home. He is having recurrent angina. The etiology is not completely clear, but I suspect it is related to the right coronary artery. Had some disease distal to the more proximal stent. The stent was not able to be placed distal to that at the edge. The patient is not stable to be released home at this point, consideration for keeping him in the hospital and giving him on Lovenox. Job ID: [id number]
--- NOTE | 2019-08-06 13:03 | PDOC.HOSPP ---
- Subjective Encounter Date: 08/06/19 Encounter Time: 07:00 Subjective: Pt seen for followup re: STEMI. Had chest pain around 4 AM, resolved after morphine and NTG. - Objective Vital Signs & Weight: Vital Signs (12 hours) Temp Pulse Pulse Pulse Resp BP BP 08/06/19 11:18 98.7 F 71 17 08/06/19 10:13 73 71 140/76 134/100 H 08/06/19 07:12 98.2 F 68 16 08/06/19 02:58 98.2 F 65 16 BP Pulse Ox Pulse Ox Pulse Ox 08/06/19 11:18 134/76 71 L 08/06/19 10:13 99 97 08/06/19 07:12 144/88 H 100 08/06/19 02:58 159/109 H 98 Weight Weight 210 lb 12.8 oz Most Recent Monitor Data Heart Rate from ECG 77 NIBP 141/91 NIBP BP-Mean 107 Respiration from ECG 27 SpO2 98 I&O: 08/05/19 08/06/19 08/07/19 06:59 06:59 06:59 Intake Total 1830 1320 Output Total 1450 1400 Balance 380 -80 Result Diagrams: 08/04/19 04:27 08/04/19 04:27 Additional Labs: Labs and MARs reviewed by me EKG Reviewed by me: Yes (Tele: NSR) Hospitalist ROS - Review of Systems Cardiovascular: reports: chest pain. denies: palpitations, orthopnea, paroxysmal noc. dyspnea, edema, light headedness Gastrointestinal: denies: nausea, vomiting, abdominal pain, diarrhea, constipation, melena, hematochezia - Medication Medications: Active Medications Generic Name Dose Route Start Last Admin Trade Name Rogersq PRN Reason Stop Dose Admin Aspirin 81 mg 08/04/19 09:00 08/06/19 08:10 Ecotrin PO 81 mg DAILY [facility]RIETT Administration Carvedilol 12.5 mg 08/02/19 21:00 08/06/19 08:09 Coreg PO 12.5 mg BID HARRIETT Administration Lisinopril 10 mg 08/03/19 09:00 08/06/19 08:10 Zestril PO 10 mg DAILY [facility]T Administration Rosuvastatin Calcium 40 mg 08/04/19 21:00 08/05/19 20:31 Crestor PO 40 mg HS HARRIETT Administration Sodium Chloride 10 ml 08/02/19 21:00 08/06/19 08:10 Flush - Normal Saline IVF 10 ml Q12HR [facility]T Administration Ticagrelor 90 mg 08/05/19 21:00 08/06/19 08:10 Brilinta PO 90 mg BID HARRIETT Administration - Exam General - other findings: Obese Eye: anicteric sclera ENT: moist mucosa Neck: supple Heart: RRR, no gallops Respiratory: CTAB, no rales Gastrointestinal: soft, non-tender Skin: no lesions Neurological: no weakness Psychiatric: normal affect, normal behavior Hosp A/P (1) STEMI (ST elevation myocardial infarction) Status: Acute (2) HTN (hypertension) Code(s): I10 - ESSENTIAL (PRIMARY) HYPERTENSION Status: Chronic (3) Obesity Code(s): E66.9 - OBESITY, UNSPECIFIED Status: Chronic - Plan s/p PCI. Pt had recurrent anginal episode. Continue PRN morphine and nitrates. BP stable.
[2019-08-06 16:08] LABS: Hemoglobin 13.8 g/dL (14.0-18.0); Platelet Count 254 thou/uL (130-400)
[2019-08-06 16:28] LABS: Calc. Creatinine Clearance 148 mL/min (70-130); Estimated GFR-MDRD Greater than 90
--- NOTE | 2019-08-06 16:53 | EKG ---
Test Reason : STAT Blood Pressure : / mmHG Vent. Rate : 087 BPM Atrial Rate : 087 BPM P-R Int : 142 ms QRS Dur : 096 ms QT Int : 368 ms P-R-T Axes : 056 010 -39 degrees QTc Int : 442 ms Normal sinus rhythm Inferior infarct , age undetermined Nonspecific ST-T changes Abnormal ECG Confirmed by DR. Adi HERMAN ([id number]) on 08/06/2019 4:53:04 PM Referred By: NA Confirmed By:DR. Adi HERMAN
--- NOTE | 2019-08-06 16:58 | EKG ---
Test Reason : Blood Pressure : / mmHG Vent. Rate : 072 BPM Atrial Rate : 072 BPM P-R Int : 146 ms QRS Dur : 088 ms QT Int : 386 ms P-R-T Axes : 050 002 -40 degrees QTc Int : 422 ms Normal sinus rhythm Inferior infarct , age undetermined Abnormal ECG Confirmed by DR. Adi HERMAN ([id number]) on 08/06/2019 4:58:31 PM Referred By: TY Confirmed By:DR. Adi HERMAN
[2019-08-06] MEDS ORDERED: Enoxaparin Sodium 100 MG/ML SYRINGE SC SCH (18:00)
[2019-08-06] MEDS: Rosuvastatin 20 MG TAB PO SCH (20:49)
[2019-08-06] MEDS: Enoxaparin Sodium 80 MG/0.8 ML SYRINGE SC SCH (20:49)
[2019-08-07] MEDS: Lisinopril 5 MG TAB PO SCH (08:12)
[2019-08-07] MEDS: Carvedilol 6.25 MG TAB PO SCH ×2 (08:12→20:22)
[2019-08-07] MEDS: TICAGRELOR 90 MG TABLET PO SCH ×2 (08:13→20:23)
[2019-08-07] MEDS: Enoxaparin Sodium 80 MG/0.8 ML SYRINGE SC SCH ×2 (08:13→20:22)
[2019-08-07] MEDS: Aspirin 81 mg Enteric Coated Tablet PO SCH (08:13)
--- NOTE | 2019-08-07 12:29 | EKG ---
Test Reason : Blood Pressure : / mmHG Vent. Rate : 104 BPM Atrial Rate : 104 BPM P-R Int : 126 ms QRS Dur : 086 ms QT Int : 330 ms P-R-T Axes : 047 053 096 degrees QTc Int : [address] elevation consider inferior injury or acute infarct * ACUTE DE * Consider right ventricular involvement in acute inferior infarct Abnormal ECG ST elevation- myocardial infarction Confirmed by KYLE MENDOZA M.D. ([id number]), video news editor GINNY SWAN ([id number]) on 08/07/2019 12:29:36 PM Referred By: Confirmed By:KYLE MENDOZA M.D.
--- NOTE | 2019-08-07 12:30 | EKG ---
Test Reason : Blood Pressure : / mmHG Vent. Rate : 098 BPM Atrial Rate : 098 BPM P-R Int : 136 ms QRS Dur : 084 ms QT Int : 354 ms P-R-T Axes : 048 051 052 degrees QTc Int : 451 ms Normal sinus rhythm Nonspecific T wave abnormality Abnormal ECG Confirmed by KYLE MENDOZA M.D. ([id number]), manager editorial GINNY SWAN ([id number]) on 08/07/2019 12:29:59 PM Referred By: Confirmed By:KYLE MENDOZA M.D.
--- NOTE | 2019-08-07 12:30 | EKG ---
Test Reason : Blood Pressure : / mmHG Vent. Rate : 102 BPM Atrial Rate : 102 BPM P-R Int : 142 ms QRS Dur : 082 ms QT Int : 350 ms P-R-T Axes : 048 056 058 degrees QTc Int : 456 ms Sinus tachycardia Nonspecific T wave abnormality Abnormal ECG Confirmed by KYLE MENDOZA M.D. ([id number]), supervising editor trailer GINNY SWAN ([id number]) on 08/07/2019 12:29:58 PM Referred By: Confirmed By:KYLE MENDOZA M.D.
--- NOTE | 2019-08-07 13:30 | PDOC.CPN ---
- Subjective Date: 08/07/19 Time: 13:10 Interval history: Doing well. No complaints of CP noted. - Review of Systems General: denies: fever/chills, weight/appetite/sleep changes, night sweats, fatigue Respiratory: denies: cough, congestion, shortness of breath, exercise intolerance Cardiovascular: denies: chest pain, palpitation, edema, paroxysmal nocturnal dyspnea, orthopnea Gastrointestinal: denies: nausea, vomiting, diarrhea, constipation, abd pain, GI bleeding Musculoskeletal: denies: pain, tenderness, stiffness, swelling, arthritis/ arthralgias Neurological: denies: numbness, syncope, seizure, weakness - Objective Allergies/Adverse Reactions: Allergies Allergy/AdvReac Type Severity Reaction Status Date / Time No Known Drug Allergies Allergy Verified 07/31/19 05:38 Visit Medications: Current Medications Aspirin (Ecotrin) 81 mg PO DAILY [facility] Last Admin: 08/07/19 08:13 Dose: 81 mg Bisacodyl (Dulcolax) 10 mg PO DAILYPRN PRN PRN Reason: Constipation Carvedilol (Coreg) 12.5 mg PO BID [facility] Last Admin: 08/07/19 08:12 Dose: 12.5 mg Enoxaparin Sodium (Lovenox) 80 mg SC 0900,2100 [facility] Last Admin: 08/07/19 08:13 Dose: 80 mg Lisinopril (Zestril) 10 mg PO DAILY [facility] Last Admin: 08/07/19 08:12 Dose: 10 mg Nitroglycerin (Nitrostat) 0.4 mg SL Q5MIN PRN PRN Reason: Chest Pain Ondansetron HCl (Zofran) 4 mg SLOW IVP Q6H PRN PRN Reason: Nausea/Vomiting Rosuvastatin Calcium (Crestor) 40 mg PO HS [facility] Last Admin: 08/06/19 20:49 Dose: 40 mg Sodium Chloride (Flush - Normal Saline) 10 ml IVF Q12HR [facility] Last Admin: 08/07/19 08:13 Dose: 10 ml Sodium Chloride (Flush - Normal Saline) 10 ml IVF PRN PRN PRN Reason: Saline Flush Ticagrelor (Brilinta) 90 mg PO BID [facility] Last Admin: 08/07/19 08:13 Dose: 90 mg Vital Signs & Weight: Vital Signs Temp Pulse Resp BP BP BP BP 08/07/19 12:00 98.2 F 73 18 126/75 08/07/19 08:12 65 137/91 H 08/07/19 08:00 08/07/19 07:49 99.0 F 65 16 137/91 H 08/07/19 04:25 08/07/19 04:00 98.3 F 67 20 135/83 Pulse Ox 08/07/19 12:00 08/07/19 08:12 08/07/19 08:00 98 08/07/19 07:49 98 08/07/19 04:25 96 08/07/19 04:00 96 Weight 210 lb 12.8 oz - Physical Exam General: alert & oriented x3, appears well HEENT: mucus membranes moist Neck: supple neck Cardiac: regular rate and rhythm, no murmur Lungs: clear to auscultation, no wheeze, rales, rhonchi Neuro: grossly intact Abdomen: unremarkable, soft, non-tender - Labs Result Diagrams: 08/06/19 16:02 08/06/19 16:02 Troponin/CKMB CK-MB (CK-2) 5.4 ng/mL (0-6.6) 07/31/19 01:21 Troponin I 72.618 ng/mL (< 0.028) H* 08/03/19 19:59 - Assessment/Plan Assessment/Plan: 1. Recurrent/UA 2. CAD s/p previous PCI to RCA Continue Lovenox. Await discussion with Dr. Petersen regarding possible surgical intervention. gree with above. Keep till Friday for continued observation and for Dr. Lr and Dr. Petersen to decide on treatment options
--- NOTE | 2019-08-07 14:26 | PDOC.HOSPP ---
- Subjective Encounter Date: 08/07/19 Encounter Time: 07:20 Subjective: Pt seen for followup re; STEMI. Denies any chest pain today. - Objective Vital Signs & Weight: Vital Signs (12 hours) Temp Pulse Resp BP BP BP BP 08/07/19 12:00 98.2 F 73 18 126/75 08/07/19 08:12 65 137/91 H 08/07/19 08:00 08/07/19 07:49 99.0 F 65 16 137/91 H 08/07/19 04:25 08/07/19 04:00 98.3 F 67 20 135/83 Pulse Ox 08/07/19 12:00 08/07/19 08:12 08/07/19 08:00 98 08/07/19 07:49 98 08/07/19 04:25 96 08/07/19 04:00 96 Weight Weight 210 lb 12.8 oz Most Recent Monitor Data Heart Rate from ECG 77 NIBP 141/91 NIBP BP-Mean 107 Respiration from ECG 27 SpO2 98 I&O: 08/06/19 08/07/19 08/08/19 06:59 06:59 06:59 Intake Total 1320 1470 840 Output Total 1400 Balance -80 1470 840 Result Diagrams: 08/06/19 16:02 08/06/19 16:02 Additional Labs: Labs and MARs reviewed by me EKG Reviewed by me: Yes (Tele: NSR) Hospitalist ROS - Review of Systems Cardiovascular: denies: chest pain, palpitations, orthopnea, paroxysmal noc. dyspnea, edema, light headedness Gastrointestinal: denies: nausea, vomiting, abdominal pain, diarrhea, constipation, melena, hematochezia - Medication Medications: Active Medications Generic Name Dose Route Start Last Admin Trade Name Freq PRN Reason Stop Dose Admin Aspirin 81 mg 08/04/19 09:00 08/07/19 08:13 Ecotrin PO 81 mg DAILY [facility]RIETT Administration Carvedilol 12.5 mg 08/02/19 21:00 08/07/19 08:12 Coreg PO 12.5 mg BID HARRIETT Administration Enoxaparin Sodium 80 mg 08/06/19 21:00 08/07/19 08:13 Lovenox SC 80 mg 0900,2100 [facility]T Administration Lisinopril 10 mg 08/03/19 09:00 08/07/19 08:12 Zestril PO 10 mg DAILY [facility]T Administration Rosuvastatin Calcium 40 mg 08/04/19 21:00 08/06/19 20:49 Crestor PO 40 mg HS [facility]RIETT Administration Sodium Chloride 10 ml 08/02/19 21:00 08/07/19 08:13 Flush - Normal Saline IVF 10 ml Q12HR [facility]T Administration Ticagrelor 90 mg 08/05/19 21:00 08/07/19 08:13 Brilinta PO 90 mg BID HARRIETT Administration - Exam General Appearance: NAD Eye: anicteric sclera ENT: moist mucosa Neck: supple Heart: RRR Respiratory: CTAB Gastrointestinal: soft, non-tender Skin: normal turgor Neurological: no focal deficits Musculoskeletal: normal strength Psychiatric: normal affect, normal behavior Hosp A/P (1) STEMI (ST elevation myocardial infarction) Status: Acute (2) HTN (hypertension) Code(s): I10 - ESSENTIAL (PRIMARY) HYPERTENSION Status: Chronic (3) Obesity Code(s): E66.9 - OBESITY, UNSPECIFIED Status: Chronic - Plan plan discussed w/ family s/p PCI. Pt had recurrent anginal episode, await decision re: CABG surgery. On PRN morphine and nitrates. BP stable.
[2019-08-07] MEDS: Rosuvastatin 20 MG TAB PO SCH (20:23)
[2019-08-07] MEDS ORDERED: Acetaminophen 325 MG TAB PO PRN (22:27)
[2019-08-08 05:50] LABS: #Eosinphils 0.2 thou/uL (0.0-0.7); #Lymphocytes 2.2 thou/uL (1.20-3.40); #Monocytes 0.8 thou/uL (0.11-0.59); #Neutrophils 6.1 thou/uL (1.40-6.50); %Basophils 0.4 % (0.0-1.0); %Eosinophils 1.8 % (0.0-10.0); %Lymphocytes 23.8 % (21.0-51.0); %Monocytes 8.6 % (0.0-10.0); %Neutrophils 65.4 % (42.0-75.0); Hemoglobin 13.6 g/dL (14.0-18.0); Mean Corpuscular HGB CONC 33.8 g/dL (32.0-36.0); Mean Corpuscular Hemoglobin 29.6 pg (27.0-31.0); Mean Corpuscular Volume 87.7 fL (78.0-98.0); Mean Platelet Volume 8.7 fL (7.4-10.4); Platelet Count 291 thou/uL (130-400); RBC Distribution Width 12.2 % (11.5-14.5); Red Blood Cell (RBC) Count 4.59 mill/uL (4.70-6.10); White Blood Cell (WBC) Count 9.3 thou/uL (4.8-10.8)
[2019-08-08 06:25] LABS: Anion Gap 13 mmol/L (10-20); BUN (Urea Nitrogen) 13 mg/dL (8.9-20.6); Calc. Creatinine Clearance 158 mL/min (70-130); Calcium 9.4 mg/dL (7.8-10.44); Carbon Dioxide 22 mmol/L (22-29); Chloride 105 mmol/L (98-107); Estimated GFR-MDRD Greater than 90; Glucose 88 mg/dL (70-105); Sodium 136 mmol/L (136-145)
[2019-08-08] MEDS: Aspirin 81 mg Enteric Coated Tablet PO SCH (10:51)
[2019-08-08] MEDS: Enoxaparin Sodium 80 MG/0.8 ML SYRINGE SC SCH ×2 (10:51→21:39)
[2019-08-08] MEDS: TICAGRELOR 90 MG TABLET PO SCH ×2 (10:51→21:39)
[2019-08-08] MEDS: Lisinopril 5 MG TAB PO SCH (10:52)
[2019-08-08] MEDS: Carvedilol 6.25 MG TAB PO SCH ×2 (10:52→21:38)
--- NOTE | 2019-08-08 13:10 | PDOC.CPN ---
- Subjective Date: 08/08/19 Time: 13:09 - Review of Systems General: reports: fever/chills (low grade temp earlier). denies: weight/ appetite/sleep changes, night sweats, fatigue Respiratory: denies: cough, congestion, shortness of breath, exercise intolerance Cardiovascular: denies: chest pain, palpitation, edema, paroxysmal nocturnal dyspnea, orthopnea Gastrointestinal: denies: nausea, vomiting, diarrhea, constipation, abd pain, GI bleeding Musculoskeletal: denies: pain, tenderness, stiffness, swelling, arthritis/ arthralgias Neurological: denies: numbness, syncope, seizure, weakness - Objective Allergies/Adverse Reactions: Allergies Allergy/AdvReac Type Severity Reaction Status Date / Time No Known Drug Allergies Allergy Verified 07/31/19 05:38 Visit Medications: Current Medications Acetaminophen (Tylenol) 650 mg PO Q6H PRN PRN Reason: Fever/Mild Pain Aspirin (Ecotrin) 81 mg PO DAILY [facility] Last Admin: 08/08/19 10:51 Dose: 81 mg Bisacodyl (Dulcolax) 10 mg PO DAILYPRN PRN PRN Reason: Constipation Carvedilol (Coreg) 12.5 mg PO BID [facility] Last Admin: 08/08/19 10:52 Dose: 12.5 mg Enoxaparin Sodium (Lovenox) 80 mg SC 0900,2100 [facility] Last Admin: 08/08/19 10:51 Dose: 80 mg Lisinopril (Zestril) 10 mg PO DAILY [facility] Last Admin: 08/08/19 10:52 Dose: 10 mg Nitroglycerin (Nitrostat) 0.4 mg SL Q5MIN PRN PRN Reason: Chest Pain Ondansetron HCl (Zofran) 4 mg SLOW IVP Q6H PRN PRN Reason: Nausea/Vomiting Rosuvastatin Calcium (Crestor) 40 mg PO HS [facility] Last Admin: 08/07/19 20:23 Dose: 40 mg Sodium Chloride (Flush - Normal Saline) 10 ml IVF Q12HR [facility] Last Admin: 08/08/19 10:52 Dose: 10 ml Sodium Chloride (Flush - Normal Saline) 10 ml IVF PRN PRN PRN Reason: Saline Flush Ticagrelor (Brilinta) 90 mg PO BID [facility] Last Admin: 08/08/19 10:51 Dose: 90 mg Vital Signs & Weight: Vital Signs Temp Pulse Pulse Pulse Resp BP BP 08/08/19 10:52 68 148/85 H 08/08/19 10:34 77 70 145/82 H 08/08/19 07:40 99.7 F H 68 18 08/08/19 04:00 97.9 F 74 18 BP BP BP Pulse Ox Pulse Ox Pulse Ox 08/08/19 10:52 08/08/19 10:34 121/79 100 99 08/08/19 07:40 125/82 95 08/08/19 04:00 119/62 98 Weight 210 lb 12.8 oz - Physical Exam General: alert & oriented x3, appears well HEENT: mucus membranes moist Neck: supple neck Cardiac: regular rate and rhythm Lungs: clear to auscultation Neuro: grossly intact Abdomen: unremarkable Skin: clear - Labs Result Diagrams: 08/08/19 05:17 08/08/19 05:17 Troponin/CKMB CK-MB (CK-2) 5.4 ng/mL (0-6.6) 07/31/19 01:21 Troponin I 72.618 ng/mL (< 0.028) H* 08/03/19 19:59 - Assessment/Plan Assessment/Plan: 1. Recurrent/UA 2. CAD s/p previous PCI to RCA 3. [place] No changes. Await input from [facility] and Dr. Lr tomorrow.
--- NOTE | 2019-08-08 15:19 | PDOC.HOSPP ---
- Subjective Encounter Date: 08/08/19 Encounter Time: 07:20 Subjective: Pt seen for followup re; STEMI. No complaints today. - Objective Vital Signs & Weight: Vital Signs (12 hours) Temp Pulse Pulse Pulse Resp BP BP 08/08/19 13:43 99.1 F 73 18 08/08/19 10:52 68 148/85 H 08/08/19 10:34 77 70 145/82 H 08/08/19 07:40 99.7 F H 68 18 08/08/19 04:00 97.9 F 74 18 BP BP BP Pulse Ox Pulse Ox Pulse Ox 08/08/19 13:43 115/74 97 08/08/19 10:52 08/08/19 10:34 121/79 100 99 08/08/19 07:40 125/82 95 08/08/19 04:00 119/62 98 Weight Weight 210 lb 12.8 oz Most Recent Monitor Data Heart Rate from ECG 77 NIBP 141/91 NIBP BP-Mean 107 Respiration from ECG 27 SpO2 98 I&O: 08/07/19 08/08/19 08/09/19 06:59 06:59 06:59 Intake Total 1470 2420 480 Output Total 1280 Balance 1470 1140 480 Result Diagrams: 08/08/19 05:17 08/08/19 05:17 Additional Labs: Labs and MARs reviewed by [place] Hospitalist ROS - Review of Systems Constitutional: denies: fever, chills, sweats, weakness, malaise Cardiovascular: denies: chest pain, palpitations, orthopnea, paroxysmal noc. dyspnea, edema, light headedness - Medication Medications: Active Medications Generic Name Dose Route Start Last Admin Trade Name Nicholas PRN Reason Stop Dose Admin Aspirin 81 mg 08/04/19 09:00 08/08/19 10:51 Ecotrin PO 81 mg DAILY [facility] Administration Carvedilol 12.5 mg 08/02/19 21:00 08/08/19 10:52 Coreg PO 12.5 mg BID [facility]ETT Administration Enoxaparin Sodium 80 mg 08/06/19 21:00 08/08/19 10:51 Lovenox SC 80 mg 0900,2100 [facility] Administration Lisinopril 10 mg 08/03/19 09:00 08/08/19 10:52 Zestril PO 10 mg DAILY [facility] Administration Rosuvastatin Calcium 40 mg 08/04/19 21:00 08/07/19 20:23 Crestor PO 40 mg HS [facility]RIETT Administration Sodium Chloride 10 ml 08/02/19 21:00 08/08/19 10:52 Flush - Normal Saline IVF 10 ml Q12HR [facility]T Administration Ticagrelor 90 mg 08/05/19 21:00 08/08/19 10:51 Brilinta PO 90 mg BID HARRIETT Administration - Exam General Appearance: NAD Eye: anicteric sclera ENT: normocephalic atraumatic Neck: supple Heart: RRR Respiratory: CTAB Gastrointestinal: soft Extremities: no cyanosis Neurological: no weakness Musculoskeletal: normal strength Psychiatric: normal affect, normal behavior Hosp A/P (1) STEMI (ST elevation myocardial infarction) Status: Acute (2) HTN (hypertension) Code(s): I10 - ESSENTIAL (PRIMARY) HYPERTENSION Status: Chronic (3) Obesity Code(s): E66.9 - OBESITY, UNSPECIFIED Status: Chronic - Plan No significant change since yesterday. s/p PCI. Pt had recurrent anginal episode, await decision re: CABG surgery vs second PCI. Continue PRN morphine and nitrates. BP stable.
[2019-08-08] MEDS: Rosuvastatin 20 MG TAB PO SCH (21:39)
[2019-08-09] MEDS: Enoxaparin Sodium 80 MG/0.8 ML SYRINGE SC SCH (09:44)
[2019-08-09] MEDS: TICAGRELOR 90 MG TABLET PO SCH ×3 (09:47→21:10)
[2019-08-09] MEDS: Carvedilol 6.25 MG TAB PO SCH ×2 (09:49→21:10)
[2019-08-09] MEDS: Lisinopril 5 MG TAB PO SCH (09:49)
--- NOTE | 2019-08-09 10:32 | PRG ---
DATE OF SERVICE: 08/09/2019 SUBJECTIVE: Mr. Jaren Otero is doing well. He did not have chest pain over the weekend. OBJECTIVE: VITAL SIGNS: Blood pressure 126/77 and pulse 66 and regular. LUNGS: Clear. CARDIAC: Normal S1 and normal S2. ASSESSMENT: 1. Three-vessel coronary artery disease. 2. Status post inferior myocardial infarction. PLAN: The patient was scheduled for bypass surgery, but had severe chest pain with ST elevation on the morning of the surgery was planned. Therefore, he was taken to the cardiac catheterization lab. Two areas were stented, the more distal area and the more proximal area. The more proximal area did have some distal disease just distal to that stent. Attempts were made to place a stent through that stent, but they were not successful, looks like the stent was hanging up on some of the previous stent. The stent was post dilated multiple times. The guide was placed further in the artery, but there was no ability to place that stent more distally. Dr. Petersen felt the patient should not be operated on at the present time. He needs to be off the antiplatelet drugs or he is going to need to be at least a month out from the myocardial infarction. Dr. Petersen feels the risk of operating on a dual antiplatelet drugs are prohibitive at this time. Therefore, the patient is released home to follow up closely in the office to come back and see us in one week. He will need to be on disability short term until the surgery can be done and the patient was able to return to work at a later time. Job ID: [id number]
[2019-08-09] MEDS: Aspirin 81 mg Enteric Coated Tablet PO SCH (11:43)
[2019-08-09] MEDS ORDERED: Fentanyl 100 MCG/2 ML VIAL SLOW IVP PRN (14:12)
[2019-08-09] MEDS ORDERED: Fentanyl 100 MCG/2 ML VIAL SLOW IVP SCH (14:15)
[2019-08-09] MEDS: Sodium Chloride 0.9% 1,000 ML IV SCH (14:23)
--- NOTE | 2019-08-09 17:14 | ULT ---
EXAM: Limited arterial ultrasound of the right groin HISTORY: Status post cardiac catheterization with swelling in the groin. Evaluate for pseudoaneurysm. TECHNIQUE: Multiplanar grayscale and color Doppler images were obtained and a targeted ultrasound of the right inguinal region. Spectral analysis of the Doppler waveform of the common femoral artery was performed. COMPARISON: None FINDINGS: There is a fluid collection superficial to the common femoral artery measuring 4.7 cm in gr eatest dimension. This contains echogenic material without flow and likely represents a thrombosed pseudoaneurysm or hematoma. A separate hypoechoic region is seen superficial to the common femoral artery and inferior to the hem atoma mentioned above. This measures 1.4 cm x 1.0 x cm x 0.8 cm in size. 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
[2019-08-09] MEDS: Rosuvastatin 20 MG TAB PO SCH (21:10)
--- NOTE | 2019-08-09 21:38 | PDOC.HOSPP ---
- Subjective Encounter Date: 08/09/19 Encounter Time: 10:30 Subjective: Patient seen and examined for OH. No CP. No new complaints. No overnight events - Objective Vital Signs & Weight: Vital Signs (12 hours) Temp Pulse Resp BP BP Pulse Ox 08/09/19 16:38 98.6 F 61 20 128/76 97 08/09/19 11:43 99.3 F 70 17 126/74 97 Weight Weight 200 lb 12.8 oz Most Recent Monitor Data Heart Rate from ECG 77 NIBP 141/91 NIBP BP-Mean 107 Respiration from ECG 27 SpO2 98 I&O: 08/08/19 08/09/19 08/10/19 06:59 06:59 06:59 Intake Total 2420 1740 720 Output Total 1280 Balance 1140 1740 720 Result Diagrams: 08/10/19 05:31 08/10/19 05:31 EKG Reviewed by me: Yes (Tele SR) Hospitalist ROS - Review of Systems Respiratory: denies: cough, dry, shortness of breath, hemoptysis, SOB with excertion, pleuritic pain, sputum, wheezing, other Cardiovascular: denies: chest pain, palpitations, orthopnea, paroxysmal noc. dyspnea, edema, light headedness, other Gastrointestinal: denies: nausea, vomiting, abdominal pain, diarrhea, constipation, melena, hematochezia, other - Medication Medications: Active Medications Generic Name Dose Route Start Last Admin Trade Name Freq PRN Reason Stop Dose Admin Aspirin 81 mg 08/04/19 09:00 08/09/19 11:43 Ecotrin PO 81 mg DAILY HARRIETT Administration Carvedilol 12.5 mg 08/02/19 21:00 08/09/19 21:10 Coreg PO 12.5 mg BID HARRIETT Administration Sodium Chloride 1,000 mls @ 125 mls/hr 08/09/19 14:15 08/09/19 14:23 Normal Saline 0.9% IV 1,000 mls .Q8H HARRIETT Administration Lisinopril 10 mg 08/03/19 09:00 08/09/19 09:49 Zestril PO 10 mg DAILY HARRIETT Administration Rosuvastatin Calcium 40 mg 08/04/19 21:00 08/09/19 21:10 Crestor PO 40 mg HS HARRIETT Administration Sodium Chloride 10 ml 08/02/19 21:00 08/09/19 21:11 Flush - Normal Saline IVF 10 ml Q12HR HARRIETT Administration Ticagrelor 90 mg 08/05/19 21:00 08/09/19 21:10 Brilinta PO 90 mg BID HARRIETT Administration - Exam General Appearance: NAD Neck: supple, no JVD Heart: RRR, no gallops Respiratory: CTAB, no wheezes, no rales, no ronchi Gastrointestinal: soft, non-tender, normal bowel sounds Extremities: no edema Hosp A/P (1) Acute coronary syndrome Code(s): I24.9 - ACUTE ISCHEMIC HEART DISEASE, UNSPECIFIED Status: Acute (2) CAD (coronary artery disease) Code(s): I25.10 - ATHSCL HEART DISEASE OF [place] CORONARY ARTERY W/O ANG PCTRS Status: Acute (3) HTN (hypertension) Code(s): I10 - ESSENTIAL (PRIMARY) HYPERTENSION Status: Chronic (4) Obesity (BMI 30-39.9) Code(s): E66.9 - OBESITY, UNSPECIFIED Status: Acute - Plan plan discussed w/ family, DVT proph w/SCDs Cont dual antiplatelet r/o pseudoaneurysm Cont ACEI/BB and Statins Cont other meds as below CABG probably after 1 month
[2019-08-10 05:56] LABS: Hemoglobin 13.2 g/dL (14.0-18.0); Platelet Count 322 thou/uL (130-400)
[2019-08-10 06:17] LABS: ALT (SGPT) 33 U/L (8-55); AST (SGOT) 18 U/L (5-34); Albumin 3.9 g/dL (3.5-5.0); Alkaline Phosphatase 55 U/L (40-150); Anion Gap 12 mmol/L (10-20); BUN (Urea Nitrogen) 14 mg/dL (8.9-20.6); Bilirubin, Total 0.3 mg/dL (0.2-1.2); Calc. Creatinine Clearance 130 mL/min (70-130); Calcium 9.3 mg/dL (7.8-10.44); Carbon Dioxide 25 mmol/L (22-29); Chloride 104 mmol/L (98-107); Estimated GFR-MDRD 89; Globulin 3.1 g/dL (2.4-3.5); Glucose 91 mg/dL (70-105); Potassium 4.1 mmol/L (3.5-5.1); Sodium 137 mmol/L (136-145)
--- NOTE | 2019-08-10 07:22 | EKG ---
Test Reason : Blood Pressure : / mmHG Vent. Rate : 068 BPM Atrial Rate : 068 BPM P-R Int : 152 ms QRS Dur : 084 ms QT Int : 380 ms P-R-T Axes : 056 -09 -24 degrees QTc Int : 404 ms Normal sinus rhythm Inferior infarct , age undetermined Abnormal ECG Confirmed by DR. Adi HERMAN (3) on 08/10/2019 7:22:16 AM Referred By: NA Confirmed By:DR. Adi HERMAN
--- NOTE | 2019-08-10 08:50 | ULT ---
ULTRASOUND RIGHT GROIN FOR PSEUDOANEURYSM EVALUATION: FINDINGS: Irregularly shaped, hypoechoic, mass like area in the right groin is consistent with a hematoma. The re is no evidence of flow with color Doppler and spectral analysis. This is anterior to the femoral artery. IMPRESSION: Hypoechoic, mass like area consistent with hematoma. No evidence of internal flow. No evidence of p seudoaneurysm. POS: OFF
[2019-08-10] MEDS: Sodium Chloride 0.9% 1,000 ML IV SCH ×2 (09:02→09:58)
[2019-08-10] MEDS: Lisinopril 5 MG TAB PO SCH (09:04)
[2019-08-10] MEDS: TICAGRELOR 90 MG TABLET PO SCH ×2 (09:05→20:51)
[2019-08-10] MEDS: Carvedilol 6.25 MG TAB PO SCH ×2 (09:05→20:51)
[2019-08-10] MEDS: Aspirin 81 mg Enteric Coated Tablet PO SCH (09:05)
[2019-08-10] MEDS ORDERED: Furosemide 20 MG TAB PO SCH (11:15)
[2019-08-10] MEDS ORDERED: Potassium Chloride 20 MEQ TAB PO SCH (11:15)
--- NOTE | 2019-08-10 19:36 | PDOC.HOSPP ---
- Subjective Encounter Date: 08/10/19 Encounter Time: 17:00 Subjective: Patient seen and examined for ACS. No CP/SOB or palpitations. No new complaints. No overnight events - Objective Vital Signs & Weight: Vital Signs (12 hours) Temp Pulse Pulse Pulse Resp BP BP 08/10/19 15:57 99.1 F 69 18 08/10/19 11:22 98.9 F 71 17 08/10/19 09:17 62 64 164/91 H 136/76 BP BP Pulse Ox Pulse Ox Pulse Ox 08/10/19 15:57 142/93 H 99 08/10/19 11:22 136/88 97 08/10/19 09:17 100 99 Weight Weight 199 lb 12.8 oz Most Recent Monitor Data Heart Rate from ECG 77 NIBP 141/91 NIBP BP-Mean 107 Respiration from ECG 27 SpO2 98 I&O: 08/09/19 08/10/19 08/11/19 06:59 06:59 06:59 Intake Total 1740 1920 720 Balance 1740 1920 720 Result Diagrams: 08/10/19 05:31 08/10/19 05:31 EKG Reviewed by me: Yes (Tele SR) Hospitalist ROS - Review of Systems Respiratory: denies: cough, dry, shortness of breath, hemoptysis, SOB with excertion, pleuritic pain, sputum, wheezing, other Cardiovascular: denies: chest pain, palpitations, orthopnea, paroxysmal noc. dyspnea, edema, light headedness, other Gastrointestinal: denies: nausea, vomiting, abdominal pain, diarrhea, constipation, melena, hematochezia, other - Medication Medications: Active Medications Generic Name Dose Route Start Last Admin Trade Name Rogersq PRN Reason Stop Dose Admin Aspirin 81 mg 08/04/19 09:00 08/10/19 09:05 Ecotrin PO 81 mg DAILY HARRIETT Administration Carvedilol 12.5 mg 08/02/19 21:00 08/10/19 09:05 Coreg PO 12.5 mg BID HARRIETT Administration Rosuvastatin Calcium 40 mg 08/04/19 21:00 08/09/19 21:10 Crestor PO 40 mg HS HARRIETT Administration Sodium Chloride 10 ml 08/02/19 21:00 08/10/19 09:06 Flush - Normal Saline IVF 10 ml Q12HR HARRIETT Administration Ticagrelor 90 mg 08/05/19 21:00 08/10/19 09:05 Brilinta PO 90 mg BID HARRIETT Administration - Exam General Appearance: NAD Heart: RRR, no rubs Respiratory: CTAB, no rales Gastrointestinal: soft, non-tender, normal bowel sounds Extremities: no edema Hosp A/P (1) Acute coronary syndrome Code(s): I24.9 - ACUTE ISCHEMIC HEART DISEASE, UNSPECIFIED Status: Acute (2) CAD (coronary artery disease) Code(s): I25.10 - ATHSCL HEART DISEASE OF [place] CORONARY ARTERY W/O ANG PCTRS Status: Acute (3) HTN (hypertension) Code(s): I10 - ESSENTIAL (PRIMARY) HYPERTENSION Status: Chronic (4) Obesity (BMI 30-39.9) Code(s): E66.9 - OBESITY, UNSPECIFIED Status: Acute - Plan DVT proph w/SCDs, GI proph Cont dual antiplatelet/ACEI/BB and Statins Received Lasix earlier today Cont other meds as below CABG probably after 1 month BMP in AM
[2019-08-10] MEDS: Rosuvastatin 20 MG TAB PO SCH (20:51)
[2019-08-10] MEDS: Lisinopril 10 MG TAB PO SCH (20:52)
[2019-08-10] MEDS: Famotidine 20 MG TAB PO SCH (20:52)
[2019-08-11 05:30] LABS: Anion Gap 13 mmol/L (10-20); BUN (Urea Nitrogen) 17 mg/dL (8.9-20.6); Calc. Creatinine Clearance 134 mL/min (70-130); Calcium 9.6 mg/dL (7.8-10.44); Carbon Dioxide 26 mmol/L (22-29); Chloride 102 mmol/L (98-107); Estimated GFR-MDRD Greater than 90; Glucose 96 mg/dL (70-105); Magnesium 2.1 mg/dL (1.6-2.6); Potassium 4.4 mmol/L (3.5-5.1); Sodium 137 mmol/L (136-145)
[2019-08-11] MEDS: Aspirin 81 mg Enteric Coated Tablet PO SCH (08:47)
[2019-08-11] MEDS: Lisinopril 10 MG TAB PO SCH ×2 (08:47→21:26)
[2019-08-11] MEDS: Famotidine 20 MG TAB PO SCH ×2 (08:47→21:26)
[2019-08-11] MEDS: Carvedilol 6.25 MG TAB PO SCH ×2 (08:47→21:25)
[2019-08-11] MEDS: TICAGRELOR 90 MG TABLET PO SCH (08:47)
--- NOTE | 2019-08-11 09:46 | ULT ---
US PseudoAneurysm Breezy Evl History: Pseudoaneurysm Comparison: Multiple prior ultrasound examinations, most recent prior day. Findings: Real-time grayscale color and spectral analysis of the right groin was obtained. The right groin pseudoaneurysm has not significantly increased in size. There is flow within the pseudoaneurysm neck which does not extend into the thrombosed sac. Impression: Partially thrombosed pseudoaneurysm with flow at the neck which does not extend into the pseudoaneurysm sac.
--- NOTE | 2019-08-11 12:02 | PDOC.HOSPP ---
- Subjective Encounter Date: 08/11/19 Encounter Time: 08:30 Subjective: Patient seen and examined for ACS. No CP or SOB. No new complaints. No overnight events - Objective Vital Signs & Weight: Vital Signs (12 hours) Temp Pulse Resp BP BP Pulse Ox 08/11/19 11:45 99.9 F H 66 16 104/68 96 08/11/19 07:26 98.9 F 60 16 130/84 97 08/11/19 04:00 98.0 F 57 L 20 115/72 97 Weight Weight 198 lb Most Recent Monitor Data Heart Rate from ECG 77 NIBP 141/91 NIBP BP-Mean 107 Respiration from ECG 27 SpO2 98 I&O: 08/10/19 08/11/19 08/12/19 06:59 06:59 06:59 Intake Total 1919 1470 Balance 1919 1470 Result Diagrams: 08/10/19 05:31 08/11/19 04:51 EKG Reviewed by me: Yes (Tele SR) Hospitalist ROS - Review of Systems Respiratory: denies: cough, dry, shortness of breath, hemoptysis, SOB with excertion, pleuritic pain, sputum, wheezing, other Cardiovascular: denies: chest pain, palpitations, orthopnea, paroxysmal noc. dyspnea, edema, light headedness, other Gastrointestinal: denies: nausea, vomiting, abdominal pain, diarrhea, constipation, melena, hematochezia, other - Medication Medications: Active Medications Generic Name Dose Route Start Last Admin Trade Name Freq PRN Reason Stop Dose Admin Acetaminophen 650 mg 08/07/19 22:27 08/11/19 11:55 Tylenol PO 650 mg Q6H PRN Administration Fever/Mild Pain Aspirin 81 mg 08/04/19 09:00 08/11/19 08:47 Ecotrin PO 81 mg DAILY HARRIETT Administration Bisacodyl 10 mg 08/05/19 10:08 08/11/19 08:49 Dulcolax PO 10 mg DAILYPRN PRN Administration Constipation Carvedilol 12.5 mg 08/02/19 21:00 08/11/19 08:47 Coreg PO 12.5 mg BID HARRIETT Administration Famotidine 20 mg 08/10/19 21:00 08/11/19 08:47 Pepcid PO 20 mg BID HARRIETT Administration Lisinopril 10 mg 08/10/19 21:00 08/11/19 08:47 Zestril PO 10 mg BID HARRIETT Administration Rosuvastatin Calcium 40 mg 08/04/19 21:00 08/10/19 20:51 Crestor PO 40 mg HS HARRIETT Administration Sodium Chloride 10 ml 08/02/19 21:00 08/11/19 08:47 Flush - Normal Saline IVF 10 ml Q12HR HARRIETT Administration Ticagrelor 90 mg 08/05/19 21:00 08/11/19 08:47 Brilinta PO 90 mg BID HARRIETT Administration - Exam General Appearance: NAD Neck: supple, no JVD Heart: RRR, no gallops Respiratory: CTAB, no rales Gastrointestinal: soft, non-distended Extremities: no edema Psychiatric: A&O x 3 Hosp A/P (1) Acute coronary syndrome Code(s): I24.9 - ACUTE ISCHEMIC HEART DISEASE, UNSPECIFIED Status: Acute (2) CAD (coronary artery disease) Code(s): I25.10 - ATHSCL HEART DISEASE OF [place] CORONARY ARTERY W/O ANG PCTRS Status: Acute (3) Pseudoaneurysm Code(s): I72.9 - ANEURYSM OF UNSPECIFIED SITE Status: Acute (4) HTN (hypertension) Code(s): I10 - ESSENTIAL (PRIMARY) HYPERTENSION Status: Chronic (5) Obesity (BMI 30-39.9) Code(s): E66.9 - OBESITY, UNSPECIFIED Status: Chronic - Plan Cont dual antiplatelet Cont Lisinopril 20 mg BID Cont BB and Statins Cont other meds as above DC home once cleared by Cardiology
[2019-08-11 16:08] VITALS: BMI 36.2
--- NOTE | 2019-08-11 17:43 | PRG ---
DATE OF SERVICE: 08/11/2019 SUBJECTIVE: Mr. Otero is doing okay today, but we repeated the ultrasound of his leg and he still has pseudoaneurysm. Discussed with Dr. Petersen. He will see the patient to consider surgical therapy for this. He had prolonged compression for this on Friday. It was not evidenced as pseudoaneurysm yesterday, but there appears to be a small pseudoaneurysm today. Dr. Petersen will see the patient for this. Job ID: [id number]
[2019-08-11] MEDS: Rosuvastatin 20 MG TAB PO SCH (21:26)
[2019-08-12] MEDS: Aspirin 81 mg Enteric Coated Tablet PO SCH (07:44)
[2019-08-12] MEDS: Carvedilol 6.25 MG TAB PO SCH ×2 (08:42→20:29)
[2019-08-12] MEDS: Lisinopril 10 MG TAB PO SCH ×2 (08:43→20:30)
[2019-08-12] MEDS: Famotidine 20 MG TAB PO SCH ×2 (08:43→20:29)
--- NOTE | 2019-08-12 08:58 | ULT ---
US PseudoAneurysm Breezy Evl History: Pseudoaneurysm Comparison: Multiple prior ultrasound exams Findings: Real-time grayscale, color, and spectral analysis of the right groin pseudoaneurysm. There continues to be flow at the neck of the pseudoaneurysm which is partially internally thrombosis . Impression: Continued flow at the pseudoaneurysm neck which is partially internally thrombosed. Size has not increased.
[2019-08-12] MEDS ORDERED: Protamine Sulfate 50 MG/5 ML VIAL ONE ×2 (11:51→11:53)
[2019-08-12] MEDS ORDERED: Fentanyl 100 MCG/2 ML VIAL ONE (11:51)
[2019-08-12] MEDS ORDERED: Heparin 5,000 UNITS/ML VIAL ONE (11:53)
[2019-08-12] MEDS ORDERED: Ondansetron PF 4 MG/2 ML Vial ONE (12:22)
[2019-08-12] MEDS ORDERED: PHENYLEPHRINE-NS 100 MCG/ML 10 ML SYRINGE ONE (12:22)
[2019-08-12] MEDS ORDERED: Rocuronium Bromide 10 MG/ML (10ML VIAL) ONE (12:22)
[2019-08-12] MEDS ORDERED: Lidocaine 1% PF 5 ML VIAL ONE (12:22)
[2019-08-12] MEDS ORDERED: PROPOFOL 200 MG/20 ML VIAL ONE (12:22)
[2019-08-12] MEDS ORDERED: Metoclopramide HCl 10 MG/2 ML VIAL ONE (12:22)
[2019-08-12] MEDS ORDERED: Promethazine HCl 25 MG/ML VIAL IM PRN (12:41)
[2019-08-12] MEDS ORDERED: Promethazine HCl 25 MG/ML VIAL SLOW IVP PRN (12:41)
[2019-08-12] MEDS ORDERED: Ondansetron HCl/PF 4 MG/2 ML Vial IVP PRN (12:41)
[2019-08-12] MEDS ORDERED: HYDROcodone/Acetaminophen 5/325 mg Tablet PO PRN ×2 (14:43)
[2019-08-12] MEDS ORDERED: Ibuprofen 200 MG TAB PO SCH (15:00)
--- NOTE | 2019-08-12 15:32 | PDOC.HOSPP ---
- Subjective Encounter Date: 08/12/19 Encounter Time: 14:30 Subjective: Patient seen and examined for ACS. s/p pseudoaneursym repair. No new complaints. No overnight events - Objective Vital Signs & Weight: Vital Signs (12 hours) Temp Pulse Resp BP BP Pulse Ox 08/12/19 15:11 58 L 16 114/69 98 08/12/19 07:15 99 08/12/19 07:09 97.7 F 65 16 121/77 99 08/12/19 04:00 98.4 F 67 17 129/75 98 Weight Admit Weight 210 lb 12.8 oz Weight 196 lb 8 oz Most Recent Monitor Data Heart Rate from ECG 77 NIBP 141/91 NIBP BP-Mean 107 Respiration from ECG 27 SpO2 98 I&O: 08/11/19 08/12/19 08/13/19 06:59 06:59 06:59 Intake Total 1470 960 Balance 1470 960 Result Diagrams: 08/10/19 05:31 08/11/19 04:51 EKG Reviewed by me: Yes (Tele SR) Hospitalist ROS - Review of Systems Respiratory: denies: cough, dry, shortness of breath, hemoptysis, SOB with excertion, pleuritic pain, sputum, wheezing, other Cardiovascular: denies: chest pain, palpitations, orthopnea, paroxysmal noc. dyspnea, edema, light headedness, other - Medication Medications: Active Medications Generic Name Dose Route Start Last Admin Trade Name Freq PRN Reason Stop Dose Admin Acetaminophen 650 mg 08/07/19 22:27 08/11/19 11:55 Tylenol PO 650 mg Q6H PRN Administration Fever/Mild Pain Aspirin 81 mg 08/04/19 09:00 08/12/19 07:44 Ecotrin PO Not Given DAILY HARRIETT Bisacodyl 10 mg 08/05/19 10:08 08/11/19 08:49 Dulcolax PO 10 mg DAILYPRN PRN Administration Constipation Carvedilol 12.5 mg 08/02/19 21:00 08/12/19 08:42 Coreg PO 12.5 mg BID HARRIETT Administration Famotidine 20 mg 08/10/19 21:00 08/12/19 08:43 Pepcid PO 20 mg BID HARRIETT Administration Ibuprofen 400 mg 08/12/19 15:00 08/12/19 15:13 Motrin PO 08/12/19 17:00 400 mg NOW HARRIETT Administration Lisinopril 10 mg 08/10/19 21:00 08/12/19 08:43 Zestril PO 10 mg BID HARRIETT Administration Rosuvastatin Calcium 40 mg 08/04/19 21:00 08/11/19 21:26 Crestor PO 40 mg HS HARRIETT Administration Sodium Chloride 10 ml 08/02/19 21:00 08/12/19 08:43 Flush - Normal Saline IVF 10 ml Q12HR HARRIETT Administration - Exam General Appearance: NAD Neck: supple, no JVD Heart: RRR, no gallops Respiratory: CTAB, no rales Gastrointestinal: soft, non-distended Extremities: no edema Hosp A/P (1) Acute coronary syndrome Code(s): I24.9 - ACUTE ISCHEMIC HEART DISEASE, UNSPECIFIED Status: Acute (2) CAD (coronary artery disease) Code(s): I25.10 - ATHSCL HEART DISEASE OF [place] CORONARY ARTERY W/O ANG PCTRS Status: Acute (3) Pseudoaneurysm Code(s): I72.9 - ANEURYSM OF UNSPECIFIED SITE Status: Acute (4) HTN (hypertension) Code(s): I10 - ESSENTIAL (PRIMARY) HYPERTENSION Status: Chronic (5) Obesity (BMI 30-39.9) Code(s): E66.9 - OBESITY, UNSPECIFIED Status: Chronic - Plan DVT proph w/SCDs s/p Pseudoaneursym repair Cont dual antiplatelet Cont ACEI/BB and Statins Cont other meds as above
[2019-08-12] MEDS ORDERED: TICAGRELOR 90 MG TABLET PO SCH ×2 (18:00→21:00)
[2019-08-12] MEDS: Rosuvastatin 20 MG TAB PO SCH (20:30)
[2019-08-12] MEDS: Ibuprofen 200 MG TAB PO SCH (20:31)
[2019-08-13] MEDS: Ibuprofen 200 MG TAB PO SCH ×2 (05:41→16:51)
[2019-08-13] MEDS: Famotidine 20 MG TAB PO SCH (08:05)
[2019-08-13] MEDS: Carvedilol 6.25 MG TAB PO SCH (08:06)
[2019-08-13] MEDS: Aspirin 81 mg Enteric Coated Tablet PO SCH (08:06)
[2019-08-13] MEDS: Lisinopril 10 MG TAB PO SCH (08:06)
--- NOTE | 2019-08-13 09:28 | OP ---
DATE OF PROCEDURE: 08/12/2019 PREOPERATIVE DIAGNOSIS: Right femoral artery pseudoaneurysm. POSTOPERATIVE DIAGNOSIS: Right femoral artery pseudoaneurysm. PROCEDURE PERFORMED: Repair of right femoral artery pseudoaneurysm. ANESTHESIA: General. ESTIMATED BLOOD LOSS: Minimal. DESCRIPTION OF PROCEDURE: After adequate anesthesia had been obtained and ultrasound had been performed, a transverse incision was made over the groin mass. Dissection was carried down to the inguinal ligament. However, due to intense inflammation, it was felt not safe to dissect out the common femoral artery. Dissection was then carried down entering the pseudoaneurysm sac where a clot was removed. The puncture site was identified and secured with a 5-0 Prolene suture. Second puncture site was never identified. The area was thoroughly irrigated and a Vicryl suture was used to approximate the tissues and then skin was closed. The patient is to be taken to the recovery room in guarded condition. Job ID: [id number]
--- NOTE | 2019-08-13 15:05 | PRG ---
DATE OF SERVICE: 08/13/2019 SUBJECTIVE: Mr. Eastman is doing well. No chest pain or pressure. OBJECTIVE: VITAL SIGNS: Blood pressure is 120 systolic. LUNGS: Clear. CARDIAC: Normal S1 and normal S2. ABDOMEN: Soft and nontender. ASSESSMENT: 1. Three-vessel coronary artery disease. 2. Status post ST-elevation myocardial infarction, treated with nondrug coated stents. PLAN: 1. To go home on aspirin. 2. Brilinta. 3. Carvedilol. 4. Lisinopril. 5. He will be seen in our office next week. It is very important to take all medicines. Bring medicines to the followup. Job ID: [id number]
--- NOTE | 2019-08-13 16:07 | DIS ---
DATE OF ADMISSION: 07/31/2019 DATE OF DISCHARGE: 08/13/2019 DISCHARGE DISPOSITION: Home. FOLLOWUP: 1. Follow up with primary care physician, Dr. Monique De Los Santos in 1 week. 2. Follow up with Cardiology, Dr. Lr and Cardiovascular, Dr. Petersen on 25 August as scheduled. ALLERGIES: NO KNOWN DRUG ALLERGIES. DISCHARGE MEDICATIONS: 1. Aspirin 81 mg daily. 2. Carvedilol 12.5 mg b.i.d. 3. Pepcid 20 mg b.i.d. 4. Brilinta 90 mg b.i.d. 5. Crestor 40 mg daily. 6. Lisinopril 10 mg b.i.d. 7. Sublingual nitroglycerin as needed. The patient was seen and examined on the day of discharge. Denies any new complaints. No chest pain, shortness of breath, or palpitations reported. DIAGNOSTIC TESTS: 1. WBC 8.1 with hemoglobin 13.2, hematocrit 40.3. 2. Maximum troponin this admission was 72.6. 3. Fasting lipid profile showed triglyceride 351, cholesterol 216, LDL 111, HDL 35. 4. Hemoglobin A1c was 5.8. 5. Potassium lowest was 3.4, at discharge is 4.4. 6. Creatinine at discharge is 0.89. 7. Basic metabolic profile after 1 week is recommended. Primary care physician advised to follow. INPATIENT PROCEDURES: 1. On 02 August 2019, the patient underwent cardiac catheterization that showed three-vessel disease with left ventricular ejection fraction of 50% with mild inferior hypokinesis. 2. On 03 August 2019, the patient underwent repeat cardiac catheterization with stent placement to distal RCA and proximal RCA. INPATIENT STEWARD RACETRACK: 1. Cardiovascular, Dr. Petersen. 2. Rolling Mill Operator Helper, Dr. Lr. 3. Critical care, Dr. Nguyen. BRIEF HOSPITAL COURSE: The patient is a 44-year-old male with hypertension and obesity, presented to the hospital with chest discomfort on 31 July 2019. His workup was consistent with [id number] MT. He was seen by Cardiology. He underwent cardiac catheterization that showed three-vessel disease. He was scheduled for coronary artery bypass grafting. However, he developed severe chest pain with ST elevation MT in the inferior lead, requiring emergent cardiac catheterization with stent placement. He will follow up with cardiovascular as outpatient for evaluation for coronary artery bypass grafting once he completes 30 days of Brilinta. He is chest pain-free and appears stable for discharge. He was extensively counseled on lifestyle modification. No driving or strenuous activity until cleared by MD. All questions were answered with the help of a brake repair mechanic. The patient developed femoral pseudoaneurysm that required repair yesterday. FINAL DIAGNOSES: 1. [id number] MT on admission. 2. Acute ST-elevation MT requiring emergent stent placement. 3. Hypertension. 4. Obesity with a BMI of 36.4. 5. Impaired glucose tolerance. 6. Femoral pseudoaneurysm, status post repair on 12 August 2019. PLAN: Plan of care was discussed with the patient in detail. He stated understanding. TIME SPENT WITH PATIENT: Total time coordinating the discharge of this patient was 32 minutes. Job ID: [id number]
[2019-08-13 16:37] VITALS: BP 123/82; TEMP 99.2
[2019-08-13] MEDS ORDERED: TICAGRELOR 90 MG TABLET PO SCH (21:00)
== END 2019-08-13 17:10 | disposition home or self-care (01) | DRG 249 ==
LOC: ERS 01:07 → EDBD 05:11 → 2NO 05:11 → OBSVTOIN 05:11 → CCU 08-03 09:29 → 2NO 08-04 20:26
PROVIDERS: ADMIT Hospitalist; ATTEND Hospitalist
PROC: 02703EZ Dilation of Coronary Artery, One Artery with Two Intraluminal Devices, Percutaneous Approach (ICD-10-PCS; principal; 2019-08-02)
PROC: 4A023N7 Measurement of Cardiac Sampling and Pressure, Left Heart, Percutaneous Approach (ICD-10-PCS; 2019-08-02)
PROC: B2111ZZ Fluoroscopy of Multiple Coronary Arteries using Low Osmolar Contrast (ICD-10-PCS; 2019-08-02)
PROC: B2141ZZ Fluoroscopy of Right Heart using Low Osmolar Contrast (ICD-10-PCS; 2019-08-02)
PROC: 04QK0ZZ Repair Right Femoral Artery, Open Approach (ICD-10-PCS; 2019-08-12)
DX: I21.19 ST elevation (STEMI) myocardial infarction involving other coronary artery of inferior wall (principal); E87.8 Other disorders of electrolyte and fluid balance, not elsewhere classified; I72.4 Aneurysm of artery of lower extremity; E66.9 Obesity, unspecified; I10 Essential (primary) hypertension; I25.119 Atherosclerotic heart disease of native coronary artery with unspecified angina pectoris; E87.6 Hypokalemia; Z68.36 Body mass index [BMI] 36.0-36.9, adult; I24.9 Acute ischemic heart disease, unspecified
CPT/HCPCS: 36415; 36416; 71045; 76936; 76942; 80048; 80053; 80061; 82550; 82553; 82565; 83036; 83690; 83735; 84484; 85014; 85018; 85025; 85049; 85347; 86850; 86900; 86901; 92928; 93005; 93010; 93454; 93458; 93798; 93926; 94760; 96374; 99152; C1769; C1876; C1887; J0690; J1642; J1644; J1650; J2001; J2250; J2270; J2405; J2720; J3010; J7050; P9045; Q9967

== ENCOUNTER 2019-09-09 18:57 | Inpatient (IN) | payer BC ==
[2019-09-09 19:44] LABS: #Basophils 0.1 thou/uL (0.0-0.2); #Eosinphils 0.1 thou/uL (0.0-0.7); #Lymphocytes 2.2 thou/uL (1.20-3.40); #Monocytes 0.8 thou/uL (0.11-0.59); #Neutrophils 4.2 thou/uL (1.40-6.50); %Basophils 0.9 % (0.0-1.0); %Eosinophils 1.8 % (0.0-10.0); %Lymphocytes 29.9 % (21.0-51.0); %Monocytes 10.4 % (0.0-10.0); %Neutrophils 57.1 % (42.0-75.0); Hemoglobin 13.2 g/dL (14.0-18.0); Mean Corpuscular HGB CONC 33.7 g/dL (32.0-36.0); Mean Corpuscular Hemoglobin 29.3 pg (27.0-31.0); Mean Corpuscular Volume 87.2 fL (78.0-98.0); Mean Platelet Volume 8.5 fL (7.4-10.4); Platelet Count 236 thou/uL (130-400); RBC Distribution Width 11.8 % (11.5-14.5); Red Blood Cell (RBC) Count 4.49 mill/uL (4.70-6.10); White Blood Cell (WBC) Count 7.3 thou/uL (4.8-10.8)
[2019-09-09 20:10] LABS: ALT (SGPT) 18 U/L (8-55); AST (SGOT) 16 U/L (5-34); Albumin 4.5 g/dL (3.5-5.0); Alkaline Phosphatase 62 U/L (40-110); Anion Gap 11 mmol/L (10-20); BUN (Urea Nitrogen) 13 mg/dL (8.9-20.6); Bilirubin, Total 0.3 mg/dL (0.2-1.2); Calc. Creatinine Clearance 0 mL/min (70-130); Calcium 9.9 mg/dL (7.8-10.44); Carbon Dioxide 29 mmol/L (22-29); Chloride 101 mmol/L (98-107); Estimated GFR-MDRD 85; Globulin 3.4 g/dL (2.4-3.5); Glucose 118 mg/dL (70-105); Lipase 33 U/L (8-78); Potassium 4.1 mmol/L (3.5-5.1); Protein, Total 7.9 g/dL (6.0-8.3); Sodium 137 mmol/L (136-145)
--- NOTE | 2019-09-09 20:20 | RAD ---
Exam: Chest one view HISTORY:Pain Comparison: 07/31/2019 FINDINGS: Lungs: No masses or consolidation. Cardiac silhouette: Normal size Pulmonary vessels: Normal Pleural Spaces: Clear Pneumothorax: None Osseous abnormalities: None of acuity. IMPRESSION: No focal consolidation.
[2019-09-09] MEDS ORDERED: Enoxaparin Sodium 100 MG/ML SYRINGE ONE (20:57)
[2019-09-09] MEDS ORDERED: Morphine 2 MG/ML SYRINGE SLOW IVP PRN (23:02)
[2019-09-09] MEDS ORDERED: Ondansetron PF 4 MG/2 ML Vial IVP PRN (23:09)
[2019-09-09] MEDS ORDERED: Senokot S 8.6-50 MG TAB PO PRN (23:09)
[2019-09-09] MEDS ORDERED: Acetaminophen 325 MG TAB PO PRN (23:09)
[2019-09-09 23:15] LABS: Amphetamine Not Detected (NotDetected); Barbiturates Screen Not Detected (NotDetected); Benzodiazepine Screen Not Detected (NotDetected); Cocaine Metabolite Screen Not Detected (NotDetected); Medtox Control Line Valid? VALID (VALID); Medtox Reader # READER 4; Methadone Not Detected (NotDetected); Methamphetamine Not Detected (NotDetected); Opiate Screen Detected (NotDetected); Oxycodone Screen Not Detected (NotDetected); Phencyclidine (PCP) Not Detected (NotDetected); THC/Cannabinoid Screen Not Detected (NotDetected); Tricyclic Screen Not Detected (NotDetected)
[2019-09-09 23:17] LABS: Troponin I 0.022 ng/mL (< 0.028)
--- NOTE | 2019-09-09 23:55 | HP ---
CHIEF COMPLAINT: Chest discomfort. PRIMARY CARE PHYSICIAN: Dr. Monique De Los Santos MD PRIMARY SOCIAL WELFARE RESEARCH WORKER: Erin Lr MD HISTORY OF PRESENT ILLNESS: The patient is a 44-year-old male with recent myocardial infarction, presented to the emergency room with chest discomfort. He was discharged from this facility on August 13, 2019. Please refer to the discharge summary for details. The patient developed chest discomfort around 5:00 p.m. while he was at home. It was precordial without any radiation. It was moderate in intensity, more or less constant. He took nitroglycerin after which his symptoms partially improved. He denies any nausea, vomiting, diaphoresis, palpitations, or syncope. No recent immobilization travel reported other than the recent hospitalization. He denies any cough, fever, shortness of breath, orthopnea, paroxysmal nocturnal dyspnea, or palpitations. PAST MEDICAL HISTORY: 1. Coronary artery disease status post recent KS, requiring stent placement. 2. Hypertension. 3. Obesity with a BMI of 36. 4. Impaired glucose tolerance. 5. Femoral pseudoaneurysm status post repair last admission. PAST SURGICAL HISTORY: 1. Cardiac catheterization. 2. Repair of femoral pseudoaneurysm. ALLERGIES: NO KNOWN DRUG ALLERGIES. CURRENT HOME MEDICATIONS: The patient was discharged on, 1. Aspirin 81 mg daily. 2. Brilinta 90 mg b.i.d. 3. Crestor 40 mg daily. 4. Lisinopril 10 mg b.i.d. 5. Pepcid 20 mg b.i.d. with sublingual nitroglycerin. SOCIAL HISTORY: The patient currently lives at home with his family. No current use of tobacco, alcohol, or drug use. FAMILY HISTORY: Negative for premature coronary artery disease. REVIEW OF SYSTEMS: All other review of systems were reviewed and were found negative. PHYSICAL EXAMINATION: VITAL SIGNS: Temperature 99.1, respirations of 18, pulse of 68, blood pressure 143/87, O2 saturation 100% on room air. GENERAL: A 44-year-old male, in no apparent distress. Denies any chest discomfort at this time. HEENT: Head, atraumatic and normocephalic. Sclerae are anicteric. Moist mucous membranes. No oral lesion. NECK: Supple. No JVD. No carotid bruit. LUNGS: Clear to auscultation bilaterally. No wheezing, rales, or rhonchi. HEART: S1 and S2 present. Regular rate and rhythm. No rubs or gallops. ABDOMEN: Soft, nontender, obese. Bowel sounds are present. EXTREMITIES: No edema or calf tenderness. NEUROLOGIC: Grossly nonfocal. Moves all 4 extremities. PSYCHIATRIC: Alert, awake, oriented x3. SKIN: Warm and dry. LYMPH NODES: No palpable lymph nodes in the neck. Peripheral, vascular, radial pulses palpable bilaterally. MUSCULOSKELETAL: No joint swelling or tenderness. LABORATORY FINDINGS: Troponin negative. BUN 13, creatinine 0.96. Electrolytes in normal range. LFTs in normal range. WBC 7.3 with hemoglobin 13.2. EKG by my review showed sinus rhythm with T-wave inversions in the inferior lead. Chest x-ray by my review was negative for edema or consolidation. IMPRESSION: 1. Chest discomfort. The patient had recent myocardial infarction requiring stent placement. He has three-vessel coronary artery disease. He had a stent placement to the distal RCA and proximal RCA last month. He is compliant with aspirin and Brilinta. His chest discomfort partially improved with nitroglycerin. 2. Coronary artery disease status post myocardial infarction requiring emergent stent placement. 3. Hypertension. 4. Obesity with a BMI of 36.4. 5. Impaired glucose tolerance. 6. Chronic kidney disease, stage 2. 7. Mild chronic anemia. PLAN: The patient will be monitored in the telemetry unit as observation. We will continue aspirin and Brilinta, BLANK inhibitor, beta blockers with statins. We will keep him n.p.o. past midnight. Consult Cardiology, Dr. Lr. He received 1 mg Lovenox in the emergency room. We will continue nitroglycerin patch. Plan of care was discussed with the patient in detail, he stated understanding. Job ID: [id number]
[2019-09-10 02:20] LABS: Troponin I Less than 0.010 ng/mL (< 0.028)
[2019-09-10] MEDS: Nitroglycerin 2% Ointment 1 INCH/1 GM Packet TOP SCH ×3 (06:23→21:25)
[2019-09-10] MEDS ORDERED: TICAGRELOR 90 MG TABLET PO SCH (09:00)
[2019-09-10] MEDS ORDERED: Aspirin Chewable 81 MG TAB PO SCH (09:00)
[2019-09-10] MEDS: Aspirin 81 mg Enteric Coated Tablet PO SCH (09:54)
[2019-09-10] MEDS: Lisinopril 10 MG TAB PO SCH ×2 (09:54→21:25)
[2019-09-10] MEDS: Carvedilol 6.25 MG TAB PO SCH ×2 (09:54→17:37)
[2019-09-10] MEDS: Famotidine 20 MG TAB PO SCH ×2 (09:54→21:25)
[2019-09-10] MEDS ORDERED: Enoxaparin Sodium 80 MG/0.8 ML SYRINGE SC SCH (10:00)
--- NOTE | 2019-09-10 11:07 | CON ---
DATE OF CONSULTATION: 09/10/2019 HISTORY OF PRESENT ILLNESS: Mr. Jaren Otero is a pleasant gentleman, admitted with chest pain. The patient had a recent admission for chest pain. He presented to the hospital with what appeared to be clinically unstable angina. Cardiac catheterization on 07/31/2019, revealed multi-vessel coronary artery disease. The patient had been scheduled for bypass surgery. In fact, he was being getting ready to be transferred to the operating room when he had onset of severe chest pain with ST elevation. He was taken back to the biological lab technician and was found to have an occluded right coronary artery, which was successfully stented. There was a technically difficult procedure. There were two lesions, more distal lesion was stented successfully first, the more proximal lesion was not stented. It looks like there is still some plaque distal to the stent. A lot of efforts were made to try to stent the edge of this stent, but no stent would go through it. Ultimately, the patient was stable, had resolution of chest pain and EKG changes and the procedure was concluded. The patient some later had chest pain during that hospitalization, was started on Lovenox, unfortunately developed a pseudoaneurysm. He underwent compression, but the radiologist thought there was still some pseudoaneurysm. Therefore, he went to the operating room by Dr. Petersen and the procedure was done at that point. The patient has been doing fairly well since then. He has had occasional chest discomfort, but yesterday came in with discomfort in the lower substernal area. He said it was likely when he has previous heart pain, but much less intense. He had been scheduled schedule for outpatient bypass surgery. The patient otherwise was on aspirin and Brilinta with the plans of Brilinta for the surgery that he had a nondrug coated stent. Other medicines, see nurse's note. PHYSICAL EXAMINATION: GENERAL: This is a pleasant gentleman, in no distress, resting comfortably, now pain free. When we asked him specifically, he says that he may have a tiny bit of discomfort, but he is hungry and he wants to eat. VITAL SIGNS: Blood pressure 128/74, pulse 63 and regular. HEENT: Eyes, sclerae and nonicteric. Mouth, mucous membranes moist. NECK: Supple. No lymphadenopathy. LUNGS: Clear. No wheezing, rales, or rhonchi. CARDIAC: Normal S1. Normal S2. There is no murmur, rub, or gallop. LABORATORY DATA: EKG shows previous inferior infarct. ASSESSMENT: 1. Multivessel coronary artery disease. 2. Recurrent chest pain. PLAN: 1. We will put him on Lovenox and stop the Brilinta. 2. Notify Dr. Petersen consideration for bypass surgery here next week at [place]. 3. Repeat echocardiogram. Job ID: [id number]
--- NOTE | 2019-09-10 15:57 | PDOC.HOSPP ---
- Subjective Subjective: Doing well. Denies any CP. Understands the plan. - Objective Vital Signs & Weight: Vital Signs (12 hours) Temp Pulse Resp BP BP Pulse Ox 09/10/19 11:25 98.6 F 66 18 132/72 96 09/10/19 08:00 98.3 F 63 16 128/74 97 09/10/19 04:20 68 18 122/75 97 Weight Weight 202 lb 8 oz Result Diagrams: 09/09/19 19:34 09/09/19 19:34 Hospitalist ROS - Medication Medications: Active Medications Generic Name Dose Route Start Last Admin Trade Name Freq PRN Reason Stop Dose Admin Aspirin 81 mg 09/10/19 09:00 09/10/19 09:54 Ecotrin PO 81 mg DAILY HARRIETT Administration Carvedilol 12.5 mg 09/10/19 08:00 09/10/19 09:54 Coreg PO 12.5 mg BID-WM HARRIETT Administration Famotidine 20 mg 09/10/19 09:00 09/10/19 09:54 Pepcid PO 20 mg BID HARRIETT Administration Lisinopril 10 mg 09/10/19 09:00 09/10/19 09:54 Zestril PO 10 mg BID HARRIETT Administration Nitroglycerin 0.5 inch 09/10/19 06:00 09/10/19 14:36 Nitro-Bid 2% Ointment TOP Not Given Q8HR HARRIETT - Exam General Appearance: NAD, awake alert Heart: RRR, no murmur, no gallops, no rubs, normal peripheral pulses Respiratory: CTAB, no wheezes, no rales, no ronchi, normal chest expansion, no tachypnea, normal percussion Gastrointestinal: soft, non-tender, non-distended, normal bowel sounds, no palpable masses, no hepatomegaly, no splenomegaly, no bruit Skin: normal turgor, no lesions, no rashes Musculoskeletal: normal tone, normal strength, no muscle wasting Psychiatric: normal affect, normal behavior, A&O x 3 Hosp A/P (1) Acute coronary syndrome Code(s): I24.9 - ACUTE ISCHEMIC HEART DISEASE, UNSPECIFIED Status: Acute (2) CAD (coronary artery disease) Code(s): I25.10 - ATHSCL HEART DISEASE OF [place] CORONARY ARTERY W/O ANG PCTRS Status: Acute (3) Obesity (BMI 30-39.9) Code(s): E66.9 - OBESITY, UNSPECIFIED Status: Chronic (4) HTN (hypertension) Code(s): I10 - ESSENTIAL (PRIMARY) HYPERTENSION Status: Chronic - Plan Inpatient. Plan was to have CABG in the next few days (30 days after STEMI with stent and ticagrelor). Plan to do that this admission. Continue current plan. Medical therapy, nitrates and tele.
[2019-09-10] MEDS ORDERED: Atorvastatin Calcium 40 MG TAB PO SCH (21:00)
[2019-09-10] MEDS ORDERED: FLU VACC QS2019-20(6MOS UP)/PF 60 MCG/0.5 ML SYRINGE IM ONE (21:00)
[2019-09-10] MEDS: Enoxaparin Sodium 80 MG/0.8 ML SYRINGE SC SCH (21:24)
[2019-09-10] MEDS: Rosuvastatin 20 MG TAB PO SCH (21:25)
[2019-09-11] MEDS: Nitroglycerin 2% Ointment 1 INCH/1 GM Packet TOP SCH ×3 (04:57→21:31)
[2019-09-11] MEDS: Carvedilol 6.25 MG TAB PO SCH ×2 (09:55→16:21)
[2019-09-11] MEDS: Famotidine 20 MG TAB PO SCH ×2 (09:55→21:27)
[2019-09-11] MEDS: Aspirin 81 mg Enteric Coated Tablet PO SCH (09:55)
[2019-09-11] MEDS: Enoxaparin Sodium 80 MG/0.8 ML SYRINGE SC SCH ×2 (09:55→21:30)
[2019-09-11] MEDS: Lisinopril 10 MG TAB PO SCH ×2 (09:55→21:28)
--- NOTE | 2019-09-11 10:55 | PDOC.HOSPP ---
- Subjective Subjective: No complaints. No pain. Eating well. - Objective Vital Signs & Weight: Vital Signs (12 hours) Temp Pulse Resp BP Pulse Ox 09/11/19 07:45 97.9 F 58 L 28 H 125/75 98 09/11/19 04:00 59 L 18 110/70 98 Weight Weight 202 lb 8 oz I&O: 09/10/19 09/11/19 09/12/19 06:59 06:59 06:59 Intake Total 860 Balance 860 Result Diagrams: 09/09/19 19:34 09/09/19 19:34 Hospitalist ROS - Medication Medications: Active Medications Generic Name Dose Route Start Last Admin Trade Name Freq PRN Reason Stop Dose Admin Aspirin 81 mg 09/10/19 09:00 09/11/19 09:55 Ecotrin PO 81 mg DAILY HARRIETT Administration Carvedilol 12.5 mg 09/10/19 08:00 09/11/19 09:55 Coreg PO 12.5 mg BID-WM HARRIETT Administration Enoxaparin Sodium 80 mg 09/10/19 21:00 09/11/19 09:55 Lovenox SC 80 mg 0900,2100 HARRIETT Administration Famotidine 20 mg 09/10/19 09:00 09/11/19 09:55 Pepcid PO 20 mg BID HARRIETT Administration Lisinopril 10 mg 09/10/19 09:00 09/11/19 09:55 Zestril PO 10 mg BID HARRIETT Administration Nitroglycerin 0.5 inch 09/10/19 06:00 09/11/19 04:57 Nitro-Bid 2% Ointment TOP Not Given Q8HR [facility] Rosuvastatin Calcium 40 mg 09/10/19 21:00 09/10/19 21:25 Crestor PO 40 mg HS HARRIETT Administration - Exam General Appearance: NAD, awake alert Heart: RRR, no murmur, no gallops, no rubs, normal peripheral pulses Respiratory: CTAB, no wheezes, no rales, no ronchi, normal chest expansion, no tachypnea, normal percussion Gastrointestinal: soft, non-tender, non-distended, normal bowel sounds, no palpable masses, no hepatomegaly, no splenomegaly, no bruit Extremities: no edema Skin: normal turgor Musculoskeletal: normal tone Psychiatric: normal affect, normal behavior, A&O x 3 Hosp A/P (1) Acute coronary syndrome Code(s): I24.9 - ACUTE ISCHEMIC HEART DISEASE, UNSPECIFIED Status: Acute (2) CAD (coronary artery disease) Code(s): I25.10 - ATHSCL HEART DISEASE OF [place] CORONARY ARTERY W/O ANG PCTRS Status: Acute (3) Obesity (BMI 30-39.9) Code(s): E66.9 - OBESITY, UNSPECIFIED Status: Chronic (4) HTN (hypertension) Code(s): I10 - ESSENTIAL (PRIMARY) HYPERTENSION Status: Chronic - Plan Inpatient. Plan was to have CABG in the next few days (30 days after STEMI with stent and ticagrelor). Plan is to do that this admission. Likely Friday. Continue current plan. Medical therapy, nitrates and tele. Continue statin and aspirin.
--- NOTE | 2019-09-11 13:21 | EKG ---
Test Reason : Blood Pressure : / mmHG Vent. Rate : 067 BPM Atrial Rate : 067 BPM P-R Int : 152 ms QRS Dur : 082 ms QT Int : 370 ms P-R-T Axes : 005 002 -33 degrees QTc Int : 390 ms Normal sinus rhythm Inferior infarct , age undetermined Abnormal ECG New T wave inversion II, III, aVF since 07/31/2019 Confirmed by MELODY HAWKINS ([id number]), city editor GINNY SWAN ([id number]) on 09/11/2019 1:21:09 PM Referred By: Confirmed By:MELODY HAWKINS
[2019-09-11] MEDS: Rosuvastatin 20 MG TAB PO SCH (21:30)
[2019-09-12] MEDS: Nitroglycerin 2% Ointment 1 INCH/1 GM Packet TOP SCH ×3 (07:32→21:03)
[2019-09-12] MEDS: Famotidine 20 MG TAB PO SCH ×2 (08:40→20:40)
[2019-09-12] MEDS: Aspirin 81 mg Enteric Coated Tablet PO SCH (08:40)
[2019-09-12] MEDS: Lisinopril 10 MG TAB PO SCH ×2 (08:40→20:41)
[2019-09-12] MEDS: Carvedilol 6.25 MG TAB PO SCH ×2 (08:41→17:58)
[2019-09-12] MEDS: Enoxaparin Sodium 80 MG/0.8 ML SYRINGE SC SCH ×2 (09:19→20:41)
[2019-09-12] MEDS: Rosuvastatin 20 MG TAB PO SCH (20:39)
--- NOTE | 2019-09-12 21:13 | PDOC.HOSPP ---
- Subjective Subjective: Doing very well. NO complaints. - Objective Vital Signs & Weight: Vital Signs (12 hours) Temp Pulse Resp BP BP BP Pulse Ox 09/12/19 20:41 135/78 09/12/19 17:56 161/91 H 09/12/19 15:03 98.6 F 67 17 98 09/12/19 11:15 99.1 F 64 16 124/74 98 Weight Weight 202 lb 8 oz I&O: 09/11/19 09/12/19 09/13/19 06:59 06:59 06:59 Intake Total 860 1580 Balance 860 1580 Result Diagrams: 09/09/19 19:34 09/09/19 19:34 Hospitalist ROS - Medication Medications: Active Medications Generic Name Dose Route Start Last Admin Trade Name Freq PRN Reason Stop Dose Admin Aspirin 81 mg 09/10/19 09:00 09/12/19 08:40 Ecotrin PO 81 mg DAILY HARRIETT Administration Carvedilol 12.5 mg 09/10/19 08:00 09/12/19 17:58 Coreg PO 12.5 mg BID-WM HARRIETT Administration Enoxaparin Sodium 80 mg 09/10/19 21:00 09/12/19 20:41 Lovenox SC 80 mg 0900,2100 HARRIETT Administration Famotidine 20 mg 09/10/19 09:00 09/12/19 20:40 Pepcid PO 20 mg BID HARRIETT Administration Lisinopril 10 mg 09/10/19 09:00 09/12/19 20:41 Zestril PO 10 mg BID HARRIETT Administration Nitroglycerin 0.5 inch 09/10/19 06:00 09/12/19 21:03 Nitro-Bid 2% Ointment TOP 0.5 inch Q8HR HARRIETT Administration Rosuvastatin Calcium 40 mg 09/10/19 21:00 09/12/19 20:39 Crestor PO 40 mg HS HARRIETT Administration Sodium Chloride 10 ml 09/09/19 23:07 09/12/19 08:41 Flush - Normal Saline IVF 10 ml PRN PRN Administration Saline Flush - Exam General Appearance: NAD, awake alert Heart: RRR, no murmur, no gallops, no rubs, normal peripheral pulses Respiratory: CTAB, no wheezes, no rales, no ronchi, normal chest expansion, no tachypnea, normal percussion Gastrointestinal: soft, non-tender, non-distended, normal bowel sounds, no palpable masses, no hepatomegaly, no splenomegaly, no bruit Extremities: no cyanosis, no clubbing, no edema Skin: normal turgor, no lesions, no rashes Musculoskeletal: normal tone, normal strength, no muscle wasting Psychiatric: normal affect, normal behavior, A&O x 3 Hosp A/P (1) Acute coronary syndrome Code(s): I24.9 - ACUTE ISCHEMIC HEART DISEASE, UNSPECIFIED Status: Acute (2) CAD (coronary artery disease) Code(s): I25.10 - ATHSCL HEART DISEASE OF [place] CORONARY ARTERY W/O ANG PCTRS Status: Acute (3) Obesity (BMI 30-39.9) Code(s): E66.9 - OBESITY, UNSPECIFIED Status: Chronic (4) HTN (hypertension) Code(s): I10 - ESSENTIAL (PRIMARY) HYPERTENSION Status: Chronic - Plan Inpatient. Plan was to have CABG in the next few days (30 days after STEMI with stent and ticagrelor). Plan is to do that this admission. Likely Friday. Continue current plan. Medical therapy, nitrates and tele. Continue statin and aspirin.
[2019-09-12] MEDS: Nitroglycerin 0.4 MG TAB (25 Tab Bottle) PO PRN ×2 (23:03→23:08)
[2019-09-12] MEDS: Calcium Carbonate 500 MG ChewTAB PO PRN (23:14)
[2019-09-12] MEDS: Ondansetron ODT 4 MG TAB PO PRN (23:14)
[2019-09-13] MEDS: Nitroglycerin 2% Ointment 1 INCH/1 GM Packet TOP SCH ×3 (07:28→20:21)
--- NOTE | 2019-09-13 09:14 | PRG ---
DATE OF SERVICE: 09/13/2019 SUBJECTIVE: Mr. Eastman is doing well. He did have an episode of chest pain last evening, which is mild. It is also short-lived. OBJECTIVE: VITAL SIGNS: Blood pressure 120/75, pulse 60, and temperature 97.8. GENERAL: Patient is a pleasant male who is in no acute distress. The patient appears their stated age. NEUROLOGIC: The patient is alert and oriented x3 with no focal neurologic deficits. HEENT: Sclerae without icterus. Mouth has moist mucous membranes with normal pallor. NECK: No JVD. Carotid upstroke brisk. No bruits bilaterally. LUNGS: Clear to auscultation with unlabored respirations. BACK: No scoliosis or kyphosis. CARDIAC: Regular rate and rhythm with normal S1 and S2. No S3 or S4 noted. No significant rubs, murmurs, thrills, or gallops noted throughout the precordium. PMI is not displaced. There is no parasternal heave. ABDOMEN: Soft, nontender, nondistended. No peritoneal signs present. No hepatosplenomegaly. No abnormal striae. EXTREMITIES: 2+ femoral and 2+ dorsalis pedis pulses. No cyanosis, clubbing, or edema. SKIN: No gross abnormalities. PERTINENT LABORATORY DATA: Hemoglobin 13.2. Creatinine 0.96. IMPRESSION: 1. Severe coronary artery disease. 2. Status post myocardial infarction. 3. Status post stent placement. RECOMMENDATIONS: The patient appears to be stable. Brilinta has been discontinued. Lovenox has been started. Plan is for bypass in a.m. Job ID: [id number]
[2019-09-13] MEDS: Carvedilol 6.25 MG TAB PO SCH ×2 (09:32→16:14)
[2019-09-13] MEDS: Lisinopril 10 MG TAB PO SCH ×2 (09:33→20:20)
[2019-09-13] MEDS: Famotidine 20 MG TAB PO SCH ×2 (09:33→20:20)
[2019-09-13] MEDS: Aspirin 81 mg Enteric Coated Tablet PO SCH (09:33)
[2019-09-13] MEDS: Enoxaparin Sodium 80 MG/0.8 ML SYRINGE SC SCH (09:33)
[2019-09-13] MEDS ORDERED: Communication Order-Pharmacy FS SCH (13:59)
--- NOTE | 2019-09-13 15:58 | PDOC.HOSPP ---
- Subjective Subjective: Doing ok. Has a little bit of chest pain. Seems to be a little positional. Has some questions about his functional status after surgery. - Objective Vital Signs & Weight: Vital Signs (12 hours) Temp Pulse Resp BP BP Pulse Ox 09/13/19 15:45 98.4 F 58 L 18 125/75 98 09/13/19 11:47 98.1 F 62 17 119/69 99 09/13/19 08:10 97.8 F 62 16 120/75 95 09/13/19 04:15 98.5 F 53 L 16 108/72 96 Weight Weight 202 lb 8 oz I&O: 09/12/19 09/13/19 09/14/19 06:59 06:59 06:59 Intake Total 1580 Balance 1580 Result Diagrams: 09/09/19 19:34 09/09/19 19:34 Hospitalist ROS - Medication Medications: Active Medications Generic Name Dose Route Start Last Admin Trade Name Freq PRN Reason Stop Dose Admin Calcium Carbonate 1,000 mg 09/09/19 23:09 09/12/19 23:14 Tums PO 1,000 mg Q4H PRN Administration Heartburn or Indigestion Carvedilol 12.5 mg 09/10/19 08:00 09/13/19 09:32 Coreg PO 12.5 mg BID-WM HARRIETT Administration Famotidine 20 mg 09/10/19 09:00 09/13/19 09:33 Pepcid PO 20 mg BID HARRIETT Administration Lisinopril 10 mg 09/10/19 09:00 09/13/19 09:33 Zestril PO 10 mg BID HARRIETT Administration Nitroglycerin 0.5 inch 09/10/19 06:00 09/13/19 13:20 Nitro-Bid 2% Ointment TOP 0.5 inch Q8HR HARRIETT Administration Nitroglycerin 0.4 mg 09/09/19 23:07 09/12/19 23:08 Nitrostat PO 1 tab Q5MIN PRN Administration Chest Pain Ondansetron HCl 4 mg 09/09/19 23:09 09/12/19 23:14 Zofran Odt PO 4 mg Q6H PRN Administration Nausea/Vomiting Rosuvastatin Calcium 40 mg 09/10/19 21:00 09/12/19 20:39 Crestor PO 40 mg HS HARRIETT Administration Senna/Docusate Sodium 2 tab 09/09/19 23:09 09/12/19 20:40 Senokot S PO 2 tab BID PRN Administration Constipation Sodium Chloride 10 ml 09/09/19 23:07 09/12/19 08:41 Flush - Normal Saline IVF 10 ml PRN PRN Administration Saline Flush - Exam General Appearance: NAD, awake alert Neck: supple, symmetric, no JVD, no thyromegaly, no lymphadenopathy, no carotid bruit Heart: RRR, no murmur, no gallops, no rubs, normal peripheral pulses Respiratory: CTAB, no wheezes, no rales, no ronchi, normal chest expansion, no tachypnea, normal percussion Gastrointestinal: soft, non-tender, non-distended, normal bowel sounds, no palpable masses, no hepatomegaly, no splenomegaly, no bruit Extremities: no cyanosis, no clubbing, no edema Skin: normal turgor, no lesions, no rashes Musculoskeletal: normal tone, normal strength, no muscle wasting Psychiatric: normal affect, normal behavior, A&O x 3 Hosp A/P (1) Acute coronary syndrome Code(s): I24.9 - ACUTE ISCHEMIC HEART DISEASE, UNSPECIFIED Status: Acute (2) CAD (coronary artery disease) Code(s): I25.10 - ATHSCL HEART DISEASE OF [place] CORONARY ARTERY W/O ANG PCTRS Status: Acute (3) Obesity (BMI 30-39.9) Code(s): E66.9 - OBESITY, UNSPECIFIED Status: Chronic (4) HTN (hypertension) Code(s): I10 - ESSENTIAL (PRIMARY) HYPERTENSION Status: Chronic - Plan Inpatient. Plan was to have CABG tomorrow. Continue current plan. Medical therapy, nitrates and tele. Continue statin and aspirin. Used [employer] metaphysicist to discuss the case with the patient and answer all of his questions.
[2019-09-13] MEDS: Rosuvastatin 20 MG TAB PO SCH (20:20)
[2019-09-13] MEDS: Calcium Carbonate 500 MG ChewTAB PO PRN (20:21)
[2019-09-13] MEDS: Ondansetron ODT 4 MG TAB PO PRN (20:21)
[2019-09-13] MEDS: Nitroglycerin 0.4 MG TAB (25 Tab Bottle) PO PRN ×2 (23:08→23:14)
[2019-09-14] MEDS: Lisinopril 10 MG TAB PO SCH (06:26)
[2019-09-14] MEDS: Nitroglycerin 2% Ointment 1 INCH/1 GM Packet TOP SCH ×2 (06:27→08:15)
[2019-09-14] MEDS: Carvedilol 6.25 MG TAB PO SCH (06:27)
[2019-09-14] MEDS ORDERED: Fentanyl 250 MCG/5 ML VIAL ONE (07:36)
[2019-09-14] MEDS ORDERED: Midazolam HCl 5 mg/5 ml Vial ONE (07:37)
[2019-09-14] MEDS ORDERED: Heparin 10,000 UNITS/1 ML VIAL 30,000 UNITS in Sodium Chloride 0.9% 1,000 ML FS SCH (08:45)
[2019-09-14] MEDS ORDERED: Bupivacaine HCl 0.5%/Epinephrine 1:200,000/PF 30 ml Vial ONE (08:48)
[2019-09-14] MEDS ORDERED: Dexmedetomidine 200 MCG/2 ML VIAL ONE (08:54)
[2019-09-14] MEDS ORDERED: Phenylephrine HCL 10 MG/ML VIAL ONE (12:39)
[2019-09-14] MEDS ORDERED: Insulin Regular 300 UNITS/3 ML VIAL ONE (12:39)
[2019-09-14] MEDS ORDERED: Vecuronium 10 MG VIAL ONE (15:18)
[2019-09-14] MEDS ORDERED: Thrombin 5000 UNITS/5 ML VIAL ONE (15:18)
[2019-09-14] MEDS ORDERED: Heparin 30,000 units/30 ml VIAL ONE (15:18)
[2019-09-14] MEDS ORDERED: Albumin 25% 25 GM/100 ML BOT ONE (15:18)
[2019-09-14] MEDS ORDERED: Rocuronium Bromide 10 MG/ML (10ML VIAL) ONE (15:18)
[2019-09-14] MEDS ORDERED: Cardioplegic Soln 1,000 ML BAG ONE (15:18)
[2019-09-14] MEDS ORDERED: Sodium Bicarb 50 MEQ/50 ML VIAL ONE (15:18)
[2019-09-14] MEDS ORDERED: Potassium Chloride 60 MEQ/30 ML VIAL ONE (15:18)
[2019-09-14] MEDS ORDERED: PROPOFOL 200 MG/20 ML VIAL ONE (15:18)
[2019-09-14] MEDS ORDERED: Magnesium 5 GM/10 ML VIAL ONE (15:18)
[2019-09-14] MEDS ORDERED: Calcium Chloride 1 GM/10 ML Abboject SYRINGE ONE (15:18)
[2019-09-14] MEDS ORDERED: Mannitol 12.5 GM/50 ML ONE (15:18)
[2019-09-14] MEDS ORDERED: Heparin 5,000 UNITS/ML VIAL ONE (15:18)
[2019-09-14] MEDS ORDERED: Aminocaproic Acid 5 GM/20 ML VIAL ONE (15:18)
[2019-09-14] MEDS ORDERED: Lidocaine 2% PF 100 mg/5 ml Syringe ONE (15:18)
[2019-09-14] MEDS ORDERED: Nitroglycerin 50 MG/250 ML BOT ONE (15:18)
[2019-09-14] MEDS ORDERED: Papaverine 60 MG/2 ML VIAL ONE (15:18)
[2019-09-14] MEDS ORDERED: ePHEDrine 50 MG/ML VIAL ONE (15:18)
[2019-09-14] MEDS ORDERED: PHENYLEPHRINE-NS 100 MCG/ML 10 ML SYRINGE ONE (15:18)
[2019-09-14] MEDS ORDERED: Protamine Sulfate 250 MG/25 ML VIAL ONE (15:18)
[2019-09-14 16:14] LABS: Base Excess (BEa) -1.9 mEq/L (-2.0 to +3.0); CO2 Tension 39.8 mmHg (35.0-45.0); Calcium, Ionized 1.24 mmol/L (1.12-1.30); Carboxyhemoglobin (COHb) 0.8 gm% (0.0-3.0); Hemoglobin (Hb) 11.9 g/dL (14.0-18.0); Potassium - ABG Lab 3.65 mmol/L (3.70-5.30); pH, Arterial 7.38 (7.35-7.45)
[2019-09-14 16:15] LABS: Puncture Site AL
[2019-09-14] MEDS ORDERED: Post-Op Insulin Drip Protocol IVPB ONE (16:35)
[2019-09-14] MEDS ORDERED: Fentanyl 100 MCG/2 ML VIAL SLOW IVP PRN (16:35)
[2019-09-14] MEDS ORDERED: Mag-Al 1200 mg/1200 mg/30 ML UDCUP PO PRN (16:35)
[2019-09-14] MEDS ORDERED: DOPamine 400 MG/D5W 250 ML 250 ML IVPB PRN (16:35)
[2019-09-14] MEDS ORDERED: Nitroglycerin 50 MG/250 ML BOT 250 ML IVPB PRN (16:35)
[2019-09-14] MEDS ORDERED: Bisacodyl 5 MG TAB PO PRN (16:35)
[2019-09-14] MEDS ORDERED: Promethazine HCl 25 MG/ML VIAL IM PRN (16:35)
[2019-09-14] MEDS ORDERED: Guaifenesin DM 100-10/5 ML UDCUP PO PRN (16:35)
[2019-09-14] MEDS ORDERED: Norepinephrine 8 MG/0.9% NS 250 ML IVPB PRN (16:35)
[2019-09-14] MEDS ORDERED: niCARdipine 25 MG in Sodium Chloride 0.9% 250 ML 240 ML IVPB PRN (16:35)
[2019-09-14] MEDS ORDERED: Potassium Chloride 20 MEQ/100 ML PREMIX BAG IVPB PRN (16:35)
[2019-09-14] MEDS ORDERED: Hetastarch 6% 500 ML 500 ML IVPB PRN (16:35)
[2019-09-14] MEDS ORDERED: hydrALAZINE 20 MG/ML VIAL SLOW IVP PRN (16:35)
[2019-09-14] MEDS ORDERED: Bisacodyl 10 MG SUPP PR PRN (16:35)
[2019-09-14 16:46] LABS: #Lymphocytes 1.2 thou/uL (1.20-3.40); #Monocytes 1.1 thou/uL (0.11-0.59); #Neutrophils 12.9 thou/uL (1.40-6.50); %Basophils 0.2 % (0.0-1.0); %Eosinophils 0.3 % (0.0-10.0); %Neutrophils 84.6 % (42.0-75.0); Hemoglobin 11.7 g/dL (14.0-18.0); Mean Corpuscular HGB CONC 33.7 g/dL (32.0-36.0); Mean Corpuscular Hemoglobin 29.4 pg (27.0-31.0); Mean Corpuscular Volume 87.1 fL (78.0-98.0); Mean Platelet Volume 8.9 fL (7.4-10.4); Platelet Count 138 thou/uL (130-400); RBC Distribution Width 11.7 % (11.5-14.5); Red Blood Cell (RBC) Count 3.98 mill/uL (4.70-6.10); White Blood Cell (WBC) Count 15.3 thou/uL (4.8-10.8)
[2019-09-14 16:50] LABS: INR-International Normal Ratio 1.5
[2019-09-14 16:51] LABS: PTT 31.5 SEC (22.9-36.1)
[2019-09-14] MEDS: Lactated Ringer's 1,000 ML IV SCH (16:51)
[2019-09-14] MEDS ORDERED: Dextrose 5% in Water 1,000 ML IV PRN (16:53)
[2019-09-14] MEDS ORDERED: Insulin Regular 300 UNITS/3 ML VIAL SC PRN (16:53)
[2019-09-14] MEDS ORDERED: HUMULIN R 100 UNITS in Sodium Chloride 0.9% 100 ML IVPB SCH (16:53)
[2019-09-14] MEDS ORDERED: Dextrose 50% Abboject 50 ML SYRINGE SLOW IVP PRN (16:53)
[2019-09-14 16:55] LABS: Anion Gap 11 mmol/L (10-20); BUN (Urea Nitrogen) 10 mg/dL (8.9-20.6); Calc. Creatinine Clearance 146 mL/min (70-130); Calcium 8.9 mg/dL (7.8-10.44); Carbon Dioxide 24 mmol/L (22-29); Chloride 111 mmol/L (98-107); Estimated GFR-MDRD Greater than 90; Glucose 122 mg/dL (70-105); Potassium 3.6 mmol/L (3.5-5.1); Sodium 142 mmol/L (136-145)
[2019-09-14] MEDS ORDERED: Magnesium 2 GM/50 ML 2 GM in Premix Bag 1 BAG IVPB SCH (17:00)
--- NOTE | 2019-09-14 17:02 | RAD ---
FRONTAL VIEW CHEST: 09/14/19 COMPARISON: 09/09/19 INDICATION: Status post heart surgery. FINDINGS: There is an endotracheal tube with tip overlying the expected region of the tracheal air column just cephalad to the ani. This is partially obscured by overlying sternotomy wires. Right subclavian ve nous catheter terminates at the right atrial region. Catheter tubing overlies the mediastinum and upp er abdomen. Numerous extrinsic artifact limit detail. Cardiac silhouette and pulmonary vasculature ar e enlarged. There is shallow depth of inspiration with accentuation of the pulmonary vasculature and pulmonary interstitium. Hazy densities at the lower chest may be related to volume loss and/or compon ent of mild pleural fluid. IMPRESSION: Postoperative chest as above with findings of fluid overload. POS: C
[2019-09-14] MEDS: Morphine 2 MG/ML SYRINGE SLOW IVP PRN ×2 (17:12→19:56)
--- NOTE | 2019-09-14 17:17 | PDOC.HOSPP ---
- Subjective Subjective: Intubated and sedated. - Objective Vital Signs & Weight: Vital Signs (12 hours) Temp Pulse Resp BP BP Pulse Ox 09/14/19 16:16 67 09/14/19 07:35 97 09/14/19 07:30 98.4 F 60 16 122/75 98 09/14/19 06:27 138/74 09/14/19 06:26 138/74 Weight Weight 202 lb 8 oz I&O: 09/13/19 09/14/19 09/15/19 06:59 06:59 06:59 Intake Total 0 Balance 2150 Result Diagrams: 09/14/19 16:17 09/14/19 16:17 Additional Labs: Accuchecks 09/14/19 09/14/19 09/14/19 16:14 15:08 14:47 POC Glucose 114 H 161 H 132 H 09/14/19 09/14/19 09/14/19 14:24 13:51 13:21 POC Glucose 136 H 136 H 126 H 09/14/19 09/14/19 12:37 10:35 POC Glucose 151 H 101 Hospitalist ROS - Medication Medications: Active Medications Generic Name Dose Route Start Last Admin Trade Name Freq PRN Reason Stop Dose Admin Lactated Ringer's 1,000 mls @ 75 mls/hr 09/14/19 16:35 09/14/19 16:51 Lactated Ringer's IV 1,000 mls .[id number] HARRIETT Administration Morphine Sulfate 2 mg 09/14/19 16:35 09/14/19 17:12 Morphine SLOW IVP 2 mg Q15MIN PRN Administration Severe Pain (7-10) - Exam General Appearance: NAD, awake alert Heart: RRR, no murmur, no gallops, no rubs, normal peripheral pulses Respiratory: CTAB, no wheezes, no rales, no ronchi, normal chest expansion, no tachypnea, normal percussion Gastrointestinal: soft, non-tender, non-distended, normal bowel sounds, no palpable masses, no hepatomegaly, no splenomegaly, no bruit Skin: normal turgor Hosp A/P (1) Acute coronary syndrome Code(s): I24.9 - ACUTE ISCHEMIC HEART DISEASE, UNSPECIFIED Status: Acute (2) CAD (coronary artery disease) Code(s): I25.10 - ATHSCL HEART DISEASE OF [place] CORONARY ARTERY W/O ANG PCTRS Status: Acute (3) Obesity (BMI 30-39.9) Code(s): E66.9 - OBESITY, UNSPECIFIED Status: Chronic (4) HTN (hypertension) Code(s): I10 - ESSENTIAL (PRIMARY) HYPERTENSION Status: Chronic - Plan Post-op CABG with SVG and L RA graft harvest. Continue current plan. Medical therapy, nitrates and tele. Continue statin and aspirin.
[2019-09-14] MEDS: Ketorolac Tromethamine 30 MG/ML VIAL IVP SCH ×2 (18:05→23:55)
[2019-09-14] MEDS: CEFAZOLIN 2 GM in Premix Bag 1 BAG IVPB SCH (18:07)
[2019-09-14 19:58] LABS: Actual Bicarbonate (HCO3a) 24.6 mEq/L (22-28); Base Excess (BEa) 0.1 mEq/L (-2.0 to +3.0); CO2 Tension 39.6 mmHg (35.0-45.0); Calcium, Ionized 1.18 mmol/L (1.12-1.30); Carboxyhemoglobin (COHb) 1.3 gm% (0.0-3.0); Hemoglobin (Hb) 13.7 g/dL (14.0-18.0); O2 Tension (PaO2) 83.4 mmHg (80.0-100.0); Potassium - ABG Lab 3.95 mmol/L (3.70-5.30); pH, Arterial 7.41 (7.35-7.45)
[2019-09-14 20:00] LABS: Puncture Site ALINE
[2019-09-14] MEDS: Fentanyl 100 MCG/2 ML VIAL SLOW IVP PRN ×2 (21:08→23:16)
[2019-09-14 21:40] LABS: Hemoglobin 12.5 g/dL (14.0-18.0)
[2019-09-14] MEDS: Famotidine/PF 20 mg/2ml Vial SLOW IVP SCH (21:40)
[2019-09-14 22:00] LABS: Potassium 3.8 mmol/L (3.5-5.1)
[2019-09-14] MEDS: HYDROcodone/Acetaminophen 5/325 mg Tablet PO PRN (22:13)
[2019-09-15] MEDS: CEFAZOLIN 2 GM in Premix Bag 1 BAG IVPB SCH ×2 (02:55→12:30)
[2019-09-15] MEDS: Fentanyl 100 MCG/2 ML VIAL SLOW IVP PRN ×3 (03:03→15:00)
[2019-09-15 04:55] LABS: #Monocytes 1.1 thou/uL (0.11-0.59); #Neutrophils 7.3 thou/uL (1.40-6.50); %Eosinophils 0.1 % (0.0-10.0); %Lymphocytes 10.8 % (21.0-51.0); %Monocytes 11.9 % (0.0-10.0); %Neutrophils 77.1 % (42.0-75.0); Hemoglobin 11.2 g/dL (14.0-18.0); Mean Corpuscular HGB CONC 33.4 g/dL (32.0-36.0); Mean Corpuscular Hemoglobin 29.2 pg (27.0-31.0); Mean Corpuscular Volume 87.3 fL (78.0-98.0); Mean Platelet Volume 8.9 fL (7.4-10.4); Platelet Count 170 thou/uL (130-400); RBC Distribution Width 11.8 % (11.5-14.5); Red Blood Cell (RBC) Count 3.84 mill/uL (4.70-6.10); White Blood Cell (WBC) Count 9.4 thou/uL (4.8-10.8)
[2019-09-15] MEDS: HYDROcodone/Acetaminophen 5/325 mg Tablet PO PRN ×4 (04:59→20:11)
[2019-09-15 05:19] LABS: Anion Gap 12 mmol/L (10-20); BUN (Urea Nitrogen) 14 mg/dL (8.9-20.6); Calc. Creatinine Clearance 143 mL/min (70-130); Calcium 8.5 mg/dL (7.8-10.44); Carbon Dioxide 23 mmol/L (22-29); Chloride 111 mmol/L (98-107); Estimated GFR-MDRD Greater than 90; Glucose 119 mg/dL (70-105); Potassium 4.2 mmol/L (3.5-5.1); Sodium 142 mmol/L (136-145)
[2019-09-15] MEDS: Ketorolac Tromethamine 30 MG/ML VIAL IVP SCH ×4 (05:42→23:56)
[2019-09-15] MEDS: Clopidogrel Bisulfate 75 MG TAB PO SCH (09:23)
[2019-09-15] MEDS: Famotidine/PF 20 mg/2ml Vial SLOW IVP SCH ×2 (09:23→20:12)
[2019-09-15] MEDS: Aspirin Chewable 81 MG TAB PO SCH (09:23)
[2019-09-15] MEDS: Rosuvastatin 20 MG TAB PO SCH (09:30)
--- NOTE | 2019-09-15 10:07 | RAD ---
CHEST ONE VIEW: INDICATIONS: History of status post open heart surgery. COMPARISON: 09/14/2019 FINDINGS: The patient has been intervally extubated. Midline mediastinal drain and right subclavian central jordyn ous catheter remain. Mild cardiomegaly and pulmonary vascular congestion remain. Subsegmental atelect asis involving the right mid lung is stable appearing. No pneumothorax is evident. IMPRESSION: 1. Interval extubation. 2. Stable right mid lung atelectasis. 3. Stable mild cardiomegaly and pulmonary vascular congestion. POS: OFF
[2019-09-15] MEDS: Ondansetron PF 4 MG/2 ML Vial IVP PRN (12:29)
[2019-09-15] MEDS ORDERED: Lactated Ringer's 1,000 ML IV SCH (13:31)
--- NOTE | 2019-09-15 14:20 | PDOC.HOSPP ---
- Subjective Encounter Date: 09/15/19 Encounter Time: 11:15 Subjective: Patient seen and examined. No new complaints. No overnight events - Objective Vital Signs & Weight: Vital Signs (12 hours) Temp Pulse Pulse BP BP Pulse Ox Pulse Ox 09/15/19 12:00 98.3 F 09/15/19 10:53 98 09/15/19 09:15 84 83 99/76 120/73 97 09/15/19 07:00 98.3 F 09/15/19 04:00 98.6 F Pulse Ox 09/15/19 12:00 09/15/19 10:53 09/15/19 09:15 93 L 09/15/19 07:00 09/15/19 04:00 Weight Weight 236 lb 1.841 oz Most Recent Monitor Data Heart Rate from ECG 79 NIBP 116/76 NIBP BP-Mean 89 Respiration from ECG 25 SpO2 97 I&O: 09/14/19 09/15/19 09/16/19 06:59 06:59 06:59 Intake Total 2150 2647 580 Output Total 1290 195 Balance 2150 1357 385 Result Diagrams: 09/15/19 04:16 09/15/19 04:16 Additional Labs: Accuchecks 09/15/19 09/15/19 09/15/19 12:08 09:15 04:23 POC Glucose 118 H 122 H 116 H 09/14/19 09/14/19 09/14/19 23:57 20:32 16:14 POC Glucose 115 H 146 H 114 H 09/14/19 09/14/19 09/14/19 15:08 14:47 14:24 POC Glucose 161 H 132 H 136 H 09/14/19 13:51 POC Glucose 136 H Radiology Reviewed by me: Yes (chest xray reviewed) EKG Reviewed by me: Yes (nsr) Hospitalist ROS - Review of Systems Constitutional: denies: fever, chills, sweats, weakness, malaise, other ENT: denies: ear pain, ear discharge, nose pain, nose discharge, nose congestion , mouth pain, mouth swelling, throat pain, throat swelling, other Respiratory: denies: cough, dry, shortness of breath, hemoptysis, SOB with excertion, pleuritic pain, sputum, wheezing, other Cardiovascular: denies: chest pain, palpitations, orthopnea, paroxysmal noc. dyspnea, edema, light headedness, other Gastrointestinal: denies: nausea, vomiting, abdominal pain, diarrhea, constipation, melena, hematochezia, other Genitourinary: denies: dysuria, frequency, incontinence, hematuria, retention, other Musculoskeletal: denies: neck pain, shoulder pain, arm pain, back pain, hand pain, leg pain, foot pain, other Skin: denies: rash, lesions, krystal, bruising, other - Medication Medications: Active Medications Generic Name Dose Route Start Last Admin Trade Name Freq PRN Reason Stop Dose Admin Hydrocodone Bitart/Acetaminophen 1 tab 09/14/19 16:35 09/15/19 09:23 [place] 5/325 PO 1 tab Q4H PRN Administration Moderate Pain (4-6) Hydrocodone Bitart/Acetaminophen 2 tab 09/14/19 16:35 09/15/19 04:59 [place] 5/325 PO 2 tab Q4H PRN Administration Severe Pain (7-10) Albumin Human 25 gm 09/14/19 16:35 09/14/19 21:02 Albumin 5% IVPB 09/15/19 16:36 25 gm Q6H PRN Administration To Maintain SBP > 90 mmHG Aspirin 81 mg 09/15/19 09:00 09/15/19 09:23 Aspirin Chewable PO 81 mg DAILY [facility] Administration Clopidogrel Bisulfate 75 mg 09/15/19 09:00 09/15/19 09:23 Plavix PO 75 mg DAILY [facility] Administration Famotidine 20 mg 09/14/19 21:00 09/15/19 09:23 Pepcid SLOW IVP 20 mg Q12HR [facility] Administration Fentanyl 50 mcg 09/14/19 16:35 09/15/19 11:04 Sublimaze SLOW IVP 09/16/19 15:38 50 mcg Q2H PRN Administration Severe Pain (7-10) Insulin Human Regular 0 units 09/14/19 16:53 09/14/19 21:28 Humulin R SC 3 unit Q4H PRN Administration POST OP SLIDING SCALE Protocol Ketorolac Tromethamine 15 mg 09/14/19 18:00 09/15/19 12:28 Toradol IVP 09/17/19 18:01 15 mg Q6HR [facility] Administration Morphine Sulfate 2 mg 09/14/19 16:35 09/14/19 19:56 Morphine SLOW IVP 2 mg Q15MIN PRN Administration Severe Pain (7-10) Ondansetron HCl 4 mg 09/14/19 16:35 09/15/19 12:29 Zofran IVP 4 mg Q6H PRN Administration Nausea/Vomiting Potassium Chloride 20 meq 09/14/19 16:35 09/14/19 22:15 Kcl IVPB 20 meq PRN PRN Administration K level </= 4.0 Rosuvastatin Calcium 40 mg 09/15/19 09:00 09/15/19 09:30 Crestor PO 40 mg DAILY [facility] Administration - Exam General Appearance: NAD, awake alert Eye: PERRL, anicteric sclera ENT: normocephalic atraumatic, no oropharyngeal lesions Neck: supple, symmetric, no JVD, no thyromegaly, no lymphadenopathy Heart: RRR, no murmur, no gallops, no rubs, normal peripheral pulses Respiratory: CTAB, no wheezes, no rales, no ronchi Gastrointestinal: soft, non-tender, non-distended, normal bowel sounds, no palpable masses, no hepatomegaly, no guarding, no rigidity Extremities: no cyanosis, no clubbing Skin: normal turgor, no lesions Neurological: cranial nerve grossly intact, normal sensation to touch, no focal deficits Musculoskeletal: normal tone, normal strength Psychiatric: normal affect, normal behavior Hosp A/P (1) Chest pain Code(s): R07.9 - CHEST PAIN, UNSPECIFIED Status: Acute (2) S/P CABG x 5 Code(s): Z95.1 - PRESENCE OF AORTOCORONARY BYPASS GRAFT Status: Acute (3) Morbid obesity with BMI of 40.0-44.9, adult Code(s): E66.01 - MORBID (SEVERE) OBESITY DUE TO EXCESS CALORIES; Z68.41 - BODY MASS INDEX (BMI) 40.0-44.9, ADULT Status: Chronic (4) Anemia, normocytic normochromic Code(s): D64.9 - ANEMIA, UNSPECIFIED Status: Chronic (5) CAD (coronary artery disease) Code(s): I25.10 - ATHSCL HEART DISEASE OF [place] CORONARY ARTERY W/O ANG PCTRS Status: Chronic Qualifiers: Coronary Disease-Associated Artery/Lesion type: [place] artery [place] vs. transplanted heart: [place] heart Associated angina: with stable angina Qualified Code(s): I25.118 - Atherosclerotic heart disease of [place] coronary artery with other forms of angina pectoris (6) HTN (hypertension) Code(s): I10 - ESSENTIAL (PRIMARY) HYPERTENSION Status: Chronic Qualifiers: Hypertension type: essential hypertension Qualified Code(s): I10 - Essential (primary) hypertension (7) Dyslipidemia Code(s): E78.5 - HYPERLIPIDEMIA, UNSPECIFIED Status: Chronic (8) GERD (gastroesophageal reflux disease) Code(s): K21.9 - GASTRO-ESOPHAGEAL REFLUX DISEASE WITHOUT ESOPHAGITIS Status: Chronic Qualifiers: Esophagitis presence: without esophagitis Qualified Code(s): K21.9 - Gastro -esophageal reflux disease without esophagitis - Plan old records reviewed/req, plan discussed w/ family 09/15/19- continue post op care as per CV surgery protocol has chest tube in place pain controlled medication reviewed as above symptomatic treatment
--- NOTE | 2019-09-15 14:32 | CON ---
DATE OF CONSULTATION: 09/15/2019 SERVICE: Pulmonary Medicine. REASON FOR CONSULTATION: ICU patient. HISTORY OF PRESENT ILLNESS: The patient is a 44-year-old male with past medical history significant for coronary artery disease. He actually presented to the hospital for an elective coronary artery bypass graft, but he had active chest discomfort. As such, he was admitted to the hospital for the chest discomfort, and settled down. Yesterday, he went for his coronary artery bypass graft, he is currently postop day #1 from that procedure. His postoperative course was essentially unremarkable. He denies any current fevers or chills. He did not have any significant overnight events. He has a small amount of cough, but not bringing up much in the way of sputum. There are no overnight events and his postop course has been uncomplicated to date. PAST MEDICAL HISTORY: 1. Coronary artery disease. 2. Hypertension. 3. Morbid obesity. 4. Femoral pseudoaneurysm, status post repair. PAST SURGICAL HISTORY: 1. Cardiac catheterization with PCI. 2. Coronary artery bypass graft surgery. 3. Repair of pseudoaneurysm of the femoral artery. FAMILY HISTORY: Noncontributory. SOCIAL HISTORY: He lives at home with his family. He does not currently use any alcohol, tobacco, or illicit drugs. ALLERGIES: NO KNOWN DRUG ALLERGIES. MEDICATIONS: List of the patient's inpatient medications was reviewed. No specific updates were made at this time. REVIEW OF SYSTEMS: General; head, ears, eyes, nose, throat; cardiovascular; respiratory; GI; ; musculoskeletal; neurologic; and skin are negative except as mentioned in the HPI. PHYSICAL EXAMINATION: VITAL SIGNS: Afebrile, pulse 77, blood pressure 134/91, respirations 20, and saturation 98% on 2 L nasal cannula. GENERAL: The patient is awake and alert, in no apparent distress. LUNGS: Very good air entry. Dependent crackles are noted. There is no prolonged expiratory phase or wheezing appreciated. HEART: Normal rate and regular. ABDOMEN: Soft, nontender, and nondistended. Bowel sounds are positive. MUSCULOSKELETAL: No cyanosis or clubbing. There is no pitting in the bilateral lower extremities currently. The left lower extremity is wrapped. NEUROLOGIC: Grossly nonfocal. LABORATORY DATA: Hemoglobin 11.2. CBC is otherwise unremarkable. INR 1.5. A pH 7.41, pCO2 of 39, pO2 of 83. Basic metabolic profile is completely unremarkable , though his creatinine is 0.85. Liver function studies are unremarkable. Troponin 0.01. Opiates are positive on the urine drug screen, but otherwise unremarkable. IMAGING DATA: Chest x-ray demonstrates thoracostomy tubes are in good position. Sternotomy wires are noted. There is a central line in good position. He has low lung volumes. That being said, I do not see any obvious consolidating lesions or effusions. The AP nature of this film magnifies the heart. ASSESSMENT: 1. Acute hypoxic respiratory failure, improving. 2. Coronary artery disease, status post coronary artery bypass graft, postop day #1. 3. Morbid obesity. 4. Obstructive sleep apnea, likely. DISCUSSION AND PLAN: The patient should be screened for sleep apnea in the outpatient setting. If it is present, polysomnogram should be considered. We will continue to wean away oxygen as tolerated. He has some crackling in the lungs. It is not clear whether or not this represents atelectasis, or a touch of volume overload. He is several liters up for the duration of the hospital stay. As such, fluids will be minimized moving forward. I will continue to follow in this location. 70 minutes have been devoted to this patient in various activities. I personally reviewed all imaging studies and laboratory data noted within this document. For fifty percent of this time, I was interacting with the patient at the bedside or coordinating care with the care team. For the remainder of the time I was immediately available to the patient in the hospital unit. Job ID: [id number] MTDD
[2019-09-15] MEDS: Lactated Ringer's 1,000 ML IV SCH (18:51)
[2019-09-15] MEDS: Famotidine 20 MG TAB PO SCH (18:54)
[2019-09-15] MEDS: Nitroglycerin 2% Ointment 1 INCH/1 GM Packet TOP SCH (18:54)
[2019-09-16] MEDS: HYDROcodone/Acetaminophen 5/325 mg Tablet PO PRN ×3 (04:07→13:43)
[2019-09-16 05:27] LABS: #Eosinphils 0.1 thou/uL (0.0-0.7); #Lymphocytes 1.6 thou/uL (1.20-3.40); #Monocytes 1.3 thou/uL (0.11-0.59); #Neutrophils 6.9 thou/uL (1.40-6.50); %Basophils 0.3 % (0.0-1.0); %Eosinophils 0.9 % (0.0-10.0); %Lymphocytes 16.4 % (21.0-51.0); %Monocytes 12.8 % (0.0-10.0); %Neutrophils 69.6 % (42.0-75.0); Hemoglobin 9.2 g/dL (14.0-18.0); Mean Corpuscular HGB CONC 32.9 g/dL (32.0-36.0); Mean Corpuscular Hemoglobin 29.1 pg (27.0-31.0); Mean Corpuscular Volume 88.5 fL (78.0-98.0); Mean Platelet Volume 8.6 fL (7.4-10.4); Platelet Count 155 thou/uL (130-400); RBC Distribution Width 11.7 % (11.5-14.5); Red Blood Cell (RBC) Count 3.18 mill/uL (4.70-6.10); White Blood Cell (WBC) Count 9.9 thou/uL (4.8-10.8)
[2019-09-16 05:49] LABS: Anion Gap 12 mmol/L (10-20); BUN (Urea Nitrogen) 16 mg/dL (8.9-20.6); Calc. Creatinine Clearance 159 mL/min (70-130); Calcium 8.4 mg/dL (7.8-10.44); Carbon Dioxide 25 mmol/L (22-29); Chloride 104 mmol/L (98-107); Estimated GFR-MDRD Greater than 90; Glucose 108 mg/dL (70-105); Potassium 3.7 mmol/L (3.5-5.1); Sodium 137 mmol/L (136-145)
[2019-09-16] MEDS: Ketorolac Tromethamine 30 MG/ML VIAL IVP SCH ×3 (05:57→18:02)
[2019-09-16] MEDS ORDERED: diphenhydrAMINE 25 MG CAP PO PRN (08:15)
[2019-09-16] MEDS ORDERED: Potassium Chloride 10 MEQ TAB PO SCH ×2 (08:15→14:00)
[2019-09-16] MEDS ORDERED: Mineral Oil ENEMA PR PRN (08:15)
[2019-09-16] MEDS ORDERED: Nitroglycerin 0.4 MG TAB (25 Tab Bottle) SL PRN (08:15)
[2019-09-16] MEDS ORDERED: Zolpidem Tartrate 5 MG TAB PO PRN (08:15)
[2019-09-16] MEDS ORDERED: Guaifenesin DM 100-10/5 ML UDCUP PO PRN (08:15)
[2019-09-16] MEDS: Rosuvastatin 20 MG TAB PO SCH (08:34)
[2019-09-16] MEDS: Aspirin Chewable 81 MG TAB PO SCH (08:34)
[2019-09-16] MEDS: Clopidogrel Bisulfate 75 MG TAB PO SCH (08:34)
[2019-09-16] MEDS: Metoprolol Tartrate 25 MG TAB PO SCH ×2 (08:42→20:18)
[2019-09-16] MEDS: Polyethylene Glycol 3350 17 GM Packet PO SCH (08:42)
[2019-09-16] MEDS: Famotidine 20 MG TAB PO SCH ×2 (08:42→20:22)
[2019-09-16] MEDS: Furosemide 40 MG TAB PO SCH (08:42)
[2019-09-16] MEDS: Enoxaparin Sodium 40 MG/0.4 ML SYRINGE SC SCH (08:42)
--- NOTE | 2019-09-16 09:27 | RAD ---
PORTABLE FRONTAL CHEST RADIOGRAPH: Date: 09/16/19 COMPARISON: 09/15/19. HISTORY: Evaluate chest following open heart surgery. FINDINGS: Stable midline sternotomy wires. Heart and mediastinal contours are stable. Stable right-sided vascul ar catheter. Mild increased density in the medial left base suggests volume loss. IMPRESSION: Postoperative changes as described above. POS: OFF
--- NOTE | 2019-09-16 09:59 | PRG ---
DATE OF SERVICE: 09/16/2019 SUBJECTIVE: Jaren Otero with known coronary artery disease, underwent a bypass, post bypass extubated. He is doing well, sitting on the side of the bed, less pain, and less shortness of breath. OBJECTIVE: VITAL SIGNS: Temperature 98, blood pressure 112/84, pulse 80, and respiratory rate 18. CHEST: No wheezing or crackles. CARDIAC: Normal S1 and S2. No gallops. ABDOMEN: No masses. LABORATORY DATA: Unremarkable. Blood sugar is 108. IMPRESSION: Status post coronary artery bypass grafting, diabetes, and hypertension. PLAN: Continue PT and supportive care. We will follow while in the ICU. Job ID: [id number]
--- NOTE | 2019-09-16 10:58 | PDOC.HOSPP ---
- Subjective Encounter Date: 09/16/19 Encounter Time: 10:10 Subjective: Patient seen and examined. No new complaints. No overnight events - Objective Vital Signs & Weight: Vital Signs (12 hours) Temp 09/16/19 09:00 97.8 F 09/16/19 04:00 98.7 F 09/16/19 00:00 98.4 F Weight Weight 202 lb 2.622 oz Most Recent Monitor Data Heart Rate from ECG 68 NIBP 115/87 NIBP BP-Mean 96 Respiration from ECG 27 SpO2 98 I&O: 09/15/19 09/16/19 09/17/19 06:59 06:59 06:59 Intake Total 2647 2207 Output Total 1290 1147 Balance 1357 1060 Result Diagrams: 09/16/19 05:10 09/16/19 05:10 Additional Labs: Accuchecks 09/15/19 09/15/19 09/15/19 12:08 09:15 04:23 POC Glucose 118 H 122 H 116 H Radiology Reviewed by me: Yes (chest xray reviewed) EKG Reviewed by me: Yes (nsr) Hospitalist ROS - Review of Systems Constitutional: denies: fever, chills, sweats, weakness, malaise, other Eyes: denies: pain, vision change, conjunctivae inflammation, eyelid inflammation, redness, other ENT: denies: ear pain, ear discharge, nose pain, nose discharge, nose congestion , mouth pain, mouth swelling, throat pain, throat swelling, other Respiratory: denies: cough, dry, shortness of breath, hemoptysis, SOB with excertion, pleuritic pain, sputum, wheezing, other Cardiovascular: denies: chest pain, palpitations, orthopnea, paroxysmal noc. dyspnea, edema, light headedness, other Gastrointestinal: denies: nausea, vomiting, abdominal pain, diarrhea, constipation, melena, hematochezia, other Genitourinary: denies: dysuria, frequency, incontinence, hematuria, retention, other Musculoskeletal: denies: neck pain, shoulder pain, arm pain, back pain, hand pain, leg pain, foot pain, other Skin: denies: rash, lesions, krystal, bruising, other - Medication Medications: Active Medications Generic Name Dose Route Start Last Admin Trade Name Freq PRN Reason Stop Dose Admin Hydrocodone Bitart/Acetaminophen 1 tab 09/14/19 16:35 09/16/19 08:40 [place] 5/325 PO 1 tab Q4H PRN Administration Moderate Pain (4-6) Hydrocodone Bitart/Acetaminophen 2 tab 09/14/19 16:35 09/16/19 04:07 [place] 5/325 PO 2 tab Q4H PRN Administration Severe Pain (7-10) Aspirin 81 mg 09/15/19 09:00 09/16/19 08:34 Aspirin Chewable PO 81 mg DAILY [facility]T Administration Clopidogrel Bisulfate 75 mg 09/15/19 09:00 09/16/19 08:34 Plavix PO 75 mg DAILY [facility] Administration Enoxaparin Sodium 40 mg 09/16/19 09:00 09/16/19 08:42 Lovenox SC 40 mg 09 [facility] Administration Famotidine 20 mg 09/16/19 09:00 09/16/19 08:42 Pepcid PO 20 mg BID [facility] Administration Fentanyl 50 mcg 09/14/19 16:35 09/15/19 15:00 Sublimaze SLOW IVP 09/16/19 15:38 50 mcg Q2H PRN Administration Severe Pain (7-10) Furosemide 40 mg 09/16/19 09:00 09/16/19 08:42 Lasix PO 40 mg DAILY [facility] Administration Ketorolac Tromethamine 15 mg 09/14/19 18:00 09/16/19 05:57 Toradol IVP 09/17/19 18:01 15 mg Q6HR [facility] Administration Metoprolol Tartrate 12.5 mg 09/16/19 09:00 09/16/19 08:42 Lopressor PO 12.5 mg BID [facility] Administration Morphine Sulfate 2 mg 09/14/19 16:35 09/14/19 19:56 Morphine SLOW IVP 2 mg Q15MIN PRN Administration Severe Pain (7-10) Ondansetron HCl 4 mg 09/14/19 16:35 09/15/19 12:29 Zofran IVP 4 mg Q6H PRN Administration Nausea/Vomiting Polyethylene Glycol 17 gm 09/16/19 09:00 09/16/19 08:42 Miralax PO 17 gm DAILY [facility] Administration Rosuvastatin Calcium 40 mg 09/15/19 09:00 09/16/19 08:34 Crestor PO 40 mg DAILY [facility] Administration - Exam General Appearance: NAD, awake alert Eye: PERRL, anicteric sclera ENT: normocephalic atraumatic, no oropharyngeal lesions Neck: supple, symmetric, no JVD Heart: RRR, no murmur, no gallops, no rubs Respiratory: CTAB, no wheezes, no rales, no ronchi, normal chest expansion Gastrointestinal: soft, non-tender, non-distended, normal bowel sounds Extremities: no cyanosis, no clubbing, no edema Skin: normal turgor, no lesions Neurological: cranial nerve grossly intact, no focal deficits Musculoskeletal: normal tone, normal strength Psychiatric: normal affect, normal behavior, A&O x 3 Hosp A/P (1) Chest pain Code(s): R07.9 - CHEST PAIN, UNSPECIFIED Status: Acute (2) S/P CABG x 5 Code(s): Z95.1 - PRESENCE OF AORTOCORONARY BYPASS GRAFT Status: Acute (3) Morbid obesity with BMI of 40.0-44.9, adult Code(s): E66.01 - MORBID (SEVERE) OBESITY DUE TO EXCESS CALORIES; Z68.41 - BODY MASS INDEX (BMI) 40.0-44.9, ADULT Status: Chronic (4) Anemia, normocytic normochromic Code(s): D64.9 - ANEMIA, UNSPECIFIED Status: Chronic (5) CAD (coronary artery disease) Code(s): I25.10 - ATHSCL HEART DISEASE OF [place] CORONARY ARTERY W/O ANG PCTRS Status: Chronic Qualifiers: Coronary Disease-Associated Artery/Lesion type: [place] artery [place] vs. transplanted heart: [place] heart Associated angina: with stable angina Qualified Code(s): I25.118 - Atherosclerotic heart disease of [place] coronary artery with other forms of angina pectoris (6) HTN (hypertension) Code(s): I10 - ESSENTIAL (PRIMARY) HYPERTENSION Status: Chronic Qualifiers: Hypertension type: essential hypertension Qualified Code(s): I10 - Essential (primary) hypertension (7) Dyslipidemia Code(s): E78.5 - HYPERLIPIDEMIA, UNSPECIFIED Status: Chronic (8) GERD (gastroesophageal reflux disease) Code(s): K21.9 - GASTRO-ESOPHAGEAL REFLUX DISEASE WITHOUT ESOPHAGITIS Status: Chronic Qualifiers: Esophagitis presence: without esophagitis Qualified Code(s): K21.9 - Gastro -esophageal reflux disease without esophagitis - Plan old records reviewed/req 09/15/19- continue post op care as per CV surgery protocol has chest tube in place pain controlled medication reviewed as above symptomatic treatment 09/16/19 post cabg doing well i spoke with [place] interpretor phone and updated current plan medication reviewed
[2019-09-16] MEDS ORDERED: Chloraseptic Spray 180 ml Bottle PO PRN (17:38)
[2019-09-16] MEDS: Acetaminophen 325 MG TAB PO PRN (19:18)
[2019-09-16] MEDS: Ondansetron PF 4 MG/2 ML Vial IVP PRN (19:21)
[2019-09-17] MEDS: Ketorolac Tromethamine 30 MG/ML VIAL IVP SCH ×2 (00:28→05:47)
[2019-09-17] MEDS: HYDROcodone/Acetaminophen 5/325 mg Tablet PO PRN ×2 (08:29→15:38)
[2019-09-17] MEDS: Clopidogrel Bisulfate 75 MG TAB PO SCH (08:32)
[2019-09-17] MEDS: Aspirin Chewable 81 MG TAB PO SCH (08:32)
[2019-09-17] MEDS: Rosuvastatin 20 MG TAB PO SCH (08:32)
[2019-09-17] MEDS: Potassium Chloride 10 MEQ TAB PO SCH (08:32)
[2019-09-17] MEDS: Furosemide 40 MG TAB PO SCH (08:33)
[2019-09-17] MEDS: Enoxaparin Sodium 40 MG/0.4 ML SYRINGE SC SCH (08:33)
[2019-09-17] MEDS: Metoprolol Tartrate 25 MG TAB PO SCH (08:33)
[2019-09-17] MEDS: Famotidine 20 MG TAB PO SCH ×2 (08:33→20:32)
[2019-09-17] MEDS: Polyethylene Glycol 3350 17 GM Packet PO SCH (08:34)
--- NOTE | 2019-09-17 10:10 | EKG ---
Test Reason : Blood Pressure : / mmHG Vent. Rate : 069 BPM Atrial Rate : 069 BPM P-R Int : 148 ms QRS Dur : 086 ms QT Int : 428 ms P-R-T Axes : 062 012 -35 degrees QTc Int : 458 ms Normal sinus rhythm Inferior infarct , age undetermined STT wave changes suggesting ischemia Abnormal ECG Confirmed by MARCELINO ESPINAL MD ([id number]) on 09/17/2019 10:10:02 AM Referred By: JOSEFINA Confirmed By:MARCELINO ESPINAL MD
--- NOTE | 2019-09-17 11:25 | PDOC.HOSPP ---
- Subjective Encounter Date: 09/17/19 Encounter Time: 08:15 Subjective: Patient seen and examined. No new complaints. No overnight events - Objective Vital Signs & Weight: Vital Signs (12 hours) Temp Pulse Resp BP Pulse Ox 09/17/19 08:27 98.4 F 74 20 128/76 96 09/17/19 03:46 98.4 F 70 18 115/79 96 09/16/19 23:58 98.8 F 71 117/74 Weight Weight 202 lb 2.622 oz Most Recent Monitor Data Heart Rate from ECG 72 NIBP 129/83 NIBP BP-Mean 98 Respiration from ECG 31 SpO2 100 I&O: 09/16/19 09/17/19 09/18/19 06:59 06:59 06:59 Intake Total 2207 730 Output Total 1147 1120 Balance 1060 -390 Result Diagrams: 09/16/19 05:10 09/16/19 05:10 Additional Labs: Accuchecks 09/17/19 09/16/19 09/16/19 05:07 20:18 17:13 POC Glucose 104 144 H 113 H 09/16/19 05:18 POC Glucose 109 EKG Reviewed by me: Yes Hospitalist ROS - Review of Systems Eyes: denies: pain, vision change, conjunctivae inflammation, eyelid inflammation, redness, other ENT: denies: ear pain, ear discharge, nose pain, nose discharge, nose congestion , mouth pain, mouth swelling, throat pain, throat swelling, other Respiratory: denies: cough, dry, shortness of breath, hemoptysis, SOB with excertion, pleuritic pain, sputum, wheezing, other Cardiovascular: denies: chest pain, palpitations, orthopnea, paroxysmal noc. dyspnea, edema, light headedness, other Gastrointestinal: denies: nausea, vomiting, abdominal pain, diarrhea, constipation, melena, hematochezia, other Genitourinary: denies: dysuria, frequency, incontinence, hematuria, retention, other Musculoskeletal: denies: neck pain, shoulder pain, arm pain, back pain, hand pain, leg pain, foot pain, other Skin: denies: rash, lesions, krystal, bruising, other - Medication Medications: Active Medications Generic Name Dose Route Start Last Admin Trade Name Freq PRN Reason Stop Dose Admin Acetaminophen 650 mg 09/14/19 16:35 09/16/19 19:18 Tylenol PO 650 mg Q6H PRN Administration Headache/Fever Or Mild Pain Hydrocodone Bitart/Acetaminophen 1 tab 09/14/19 16:35 09/17/19 08:29 [place] 5/325 PO 1 tab Q4H PRN Administration Moderate Pain (4-6) Hydrocodone Bitart/Acetaminophen 2 tab 09/14/19 16:35 09/16/19 13:43 [place] 5/325 PO 2 tab Q4H PRN Administration Severe Pain (7-10) Aspirin 81 mg 09/15/19 09:00 09/17/19 08:32 Aspirin Chewable PO 81 mg DAILY [facility] Administration Bisacodyl 10 mg 09/14/19 16:35 09/16/19 18:04 Dulcolax PO 10 mg Q12H PRN Administration Constipation Clopidogrel Bisulfate 75 mg 09/15/19 09:00 09/17/19 08:32 Plavix PO 75 mg DAILY [facility] Administration Enoxaparin Sodium 40 mg 09/16/19 09:00 09/17/19 08:33 Lovenox SC 40 mg 09 [facility] Administration Famotidine 20 mg 09/16/19 09:00 09/17/19 08:33 Pepcid PO 20 mg BID [facility] Administration Furosemide 40 mg 09/16/19 09:00 09/17/19 08:33 Lasix PO 40 mg DAILY [facility] Administration Metoprolol Tartrate 12.5 mg 09/16/19 09:00 09/17/19 08:33 Lopressor PO 12.5 mg BID [facility] Administration Ondansetron HCl 4 mg 09/14/19 16:35 09/16/19 19:21 Zofran IVP 4 mg Q6H PRN Administration Nausea/Vomiting Phenol 0 ml 09/16/19 17:38 09/16/19 18:01 Chloraseptic [place] 180 Ml Bot PO 1 spray PRN PRN Administration SORE THROAT Polyethylene Glycol 17 gm 09/16/19 09:00 09/17/19 08:34 Miralax PO Not Given DAILY [facility] Potassium Chloride 10 meq 09/17/19 08:00 09/17/19 08:32 Klor-Con 10 PO 10 meq QAM-WM [facility] Administration Rosuvastatin Calcium 40 mg 09/15/19 09:00 09/17/19 08:32 Crestor PO 40 mg DAILY [facility] Administration Sodium Chloride 10 ml 09/16/19 21:00 09/17/19 08:34 Flush - Normal Saline IVF 10 ml Q12HR [facility] Administration - Exam General Appearance: NAD, awake alert Eye: PERRL, anicteric sclera ENT: normocephalic atraumatic, no oropharyngeal lesions Neck: supple, symmetric, no JVD, no thyromegaly Heart: RRR, no murmur, no gallops, no rubs Respiratory: CTAB, no wheezes, no rales, no ronchi Gastrointestinal: soft, non-tender, non-distended, normal bowel sounds, no palpable masses Extremities: no cyanosis, no clubbing, no edema Skin: normal turgor, no lesions Neurological: cranial nerve grossly intact, no focal deficits Musculoskeletal: normal tone, normal strength Psychiatric: normal affect, normal behavior Hosp A/P (1) Chest pain Code(s): R07.9 - CHEST PAIN, UNSPECIFIED Status: Acute (2) S/P CABG x 5 Code(s): Z95.1 - PRESENCE OF AORTOCORONARY BYPASS GRAFT Status: Acute (3) Morbid obesity with BMI of 40.0-44.9, adult Code(s): E66.01 - MORBID (SEVERE) OBESITY DUE TO EXCESS CALORIES; Z68.41 - BODY MASS INDEX (BMI) 40.0-44.9, ADULT Status: Chronic (4) Anemia, normocytic normochromic Code(s): D64.9 - ANEMIA, UNSPECIFIED Status: Chronic (5) CAD (coronary artery disease) Code(s): I25.10 - ATHSCL HEART DISEASE OF [place] CORONARY ARTERY W/O ANG PCTRS Status: Chronic Qualifiers: Coronary Disease-Associated Artery/Lesion type: [place] artery [place] vs. transplanted heart: [place] heart Associated angina: with stable angina Qualified Code(s): I25.118 - Atherosclerotic heart disease of [place] coronary artery with other forms of angina pectoris (6) HTN (hypertension) Code(s): I10 - ESSENTIAL (PRIMARY) HYPERTENSION Status: Chronic Qualifiers: Hypertension type: essential hypertension Qualified Code(s): I10 - Essential (primary) hypertension (7) Dyslipidemia Code(s): E78.5 - HYPERLIPIDEMIA, UNSPECIFIED Status: Chronic (8) GERD (gastroesophageal reflux disease) Code(s): K21.9 - GASTRO-ESOPHAGEAL REFLUX DISEASE WITHOUT ESOPHAGITIS Status: Chronic Qualifiers: Esophagitis presence: without esophagitis Qualified Code(s): K21.9 - Gastro -esophageal reflux disease without esophagitis - Plan old records reviewed/req, plan discussed w/ family 09/15/19- continue post op care as per CV surgery protocol has chest tube in place pain controlled medication reviewed as above symptomatic treatment 09/16/19 post cabg doing well i spoke with [place] interpretor phone and updated current plan medication reviewed 09/17/19 continue current medical therapy medication reviewed as above symptomatic treatment stable and improving will dc when CV surgery OK
[2019-09-17] MEDS: Acetaminophen 325 MG TAB PO PRN (15:40)
--- NOTE | 2019-09-17 18:35 | PRG ---
DATE OF SERVICE: 09/17/2019 SUBJECTIVE: Mr. Jaren Otero is doing well. No complaints. OBJECTIVE: VITAL SIGNS: His blood pressure is 134/89, pulse 70 and it is regular. LUNGS: Clear. CARDIAC: Normal S1, normal S2. ABDOMEN: Soft and nontender. EXTREMITIES: No edema. ASSESSMENT: Multivessel coronary artery disease, status post bypass surgery on 09/09/2019, BELTRAN to the LAD, ramus, saphenous vein graft to obtuse marginal 1, saphenous vein graft to obtuse marginal 2, saphenous vein graft radial to diagonal branch. The patient had non-bypassable right coronary artery. Noted, the right coronary is calcified throughout. PLAN: 1. The patient is on aspirin and Plavix. 2. There is some disease in the right coronary distal to the stent, previously we were unable to get the stent to go around the corner of the first stent. Hopefully, he will not have more chest pain from that distribution. If he does, potentially a stent could be placed. Once the stent is endothelialized, maybe more likely to go around the corner on the stent. Have a stent placed in the edge if needed. Hopefully, he will do well with medical therapy alone. The patient will be seen back in the office. No other intervention indicated at this point. Job ID: [id number]
[2019-09-18] MEDS: HYDROcodone/Acetaminophen 5/325 mg Tablet PO PRN ×4 (00:59→15:32)
[2019-09-18] MEDS: Clopidogrel Bisulfate 75 MG TAB PO SCH (08:51)
[2019-09-18] MEDS: Aspirin Chewable 81 MG TAB PO SCH (08:51)
[2019-09-18] MEDS: Potassium Chloride 10 MEQ TAB PO SCH (08:51)
[2019-09-18] MEDS: Furosemide 40 MG TAB PO SCH (08:52)
[2019-09-18] MEDS: Famotidine 20 MG TAB PO SCH (08:52)
[2019-09-18] MEDS: Polyethylene Glycol 3350 17 GM Packet PO SCH (08:52)
[2019-09-18] MEDS: Rosuvastatin 20 MG TAB PO SCH (08:52)
[2019-09-18] MEDS: Enoxaparin Sodium 40 MG/0.4 ML SYRINGE SC SCH (08:52)
[2019-09-18] MEDS ORDERED: Lisinopril 10 MG TAB PO SCH (09:00)
--- NOTE | 2019-09-18 09:55 | PDOC.HOSPP ---
- Subjective Encounter Date: 09/18/19 Encounter Time: 08:00 Subjective: Patient seen and examined. No new complaints. No overnight events - Objective Vital Signs & Weight: Vital Signs (12 hours) Temp Pulse Resp BP Pulse Ox 09/18/19 07:27 98.6 F 76 16 136/84 95 09/18/19 04:00 98.4 F 68 16 137/85 97 Weight Weight 199 lb 8 oz Most Recent Monitor Data Heart Rate from ECG 72 NIBP 129/83 NIBP BP-Mean 98 Respiration from ECG 31 SpO2 100 I&O: 09/17/19 09/18/19 09/19/19 06:59 06:59 06:59 Intake Total 730 Output Total 1120 Balance -390 Result Diagrams: 09/16/19 05:10 09/16/19 05:10 EKG Reviewed by me: Yes Hospitalist ROS - Review of Systems Eyes: denies: pain, vision change, conjunctivae inflammation, eyelid inflammation, redness, other ENT: denies: ear pain, ear discharge, nose pain, nose discharge, nose congestion , mouth pain, mouth swelling, throat pain, throat swelling, other Respiratory: denies: cough, dry, shortness of breath, hemoptysis, SOB with excertion, pleuritic pain, sputum, wheezing, other Cardiovascular: denies: chest pain, palpitations, orthopnea, paroxysmal noc. dyspnea, edema, light headedness, other Gastrointestinal: denies: nausea, vomiting, abdominal pain, diarrhea, constipation, melena, hematochezia, other Genitourinary: denies: dysuria, frequency, incontinence, hematuria, retention, other Musculoskeletal: denies: neck pain, shoulder pain, arm pain, back pain, hand pain, leg pain, foot pain, other Skin: denies: rash, lesions, krystal, bruising, other - Medication Medications: Active Medications Generic Name Dose Route Start Last Admin Trade Name Freq PRN Reason Stop Dose Admin Acetaminophen 650 mg 09/14/19 16:35 09/17/19 15:40 Tylenol PO 650 mg Q6H PRN Administration Headache/Fever Or Mild Pain Hydrocodone Bitart/Acetaminophen 1 tab 09/14/19 16:35 09/18/19 06:34 [place] 5/325 PO 1 tab Q4H PRN Administration Moderate Pain (4-6) Hydrocodone Bitart/Acetaminophen 2 tab 09/14/19 16:35 09/17/19 15:38 [place] 5/325 PO 2 tab Q4H PRN Administration Severe Pain (7-10) Aspirin 81 mg 09/15/19 09:00 09/18/19 08:51 Aspirin Chewable PO 81 mg DAILY HARRIETT Administration Bisacodyl 10 mg 09/14/19 16:35 09/16/19 18:04 Dulcolax PO 10 mg Q12H PRN Administration Constipation Clopidogrel Bisulfate 75 mg 09/15/19 09:00 09/18/19 08:51 Plavix PO 75 mg DAILY HARRIETT Administration Enoxaparin Sodium 40 mg 09/16/19 09:00 09/18/19 08:52 Lovenox SC 40 mg 09 HARRIETT Administration Famotidine 20 mg 09/16/19 09:00 09/18/19 08:52 Pepcid PO 20 mg BID HARRIETT Administration Furosemide 40 mg 09/16/19 09:00 09/18/19 08:52 Lasix PO 40 mg DAILY HARRIETT Administration Lisinopril 10 mg 09/18/19 09:00 09/18/19 08:52 Zestril PO 10 mg DAILY HARRIETT Administration Metoprolol Succinate 25 mg 09/18/19 09:00 09/18/19 08:52 Toprol Xl PO 25 mg DAILY HARRIETT Administration Ondansetron HCl 4 mg 09/14/19 16:35 09/16/19 19:21 Zofran IVP 4 mg Q6H PRN Administration Nausea/Vomiting Phenol 0 ml 09/16/19 17:38 09/16/19 18:01 Chloraseptic [place] 180 Ml Bot PO 1 spray PRN PRN Administration SORE THROAT Polyethylene Glycol 17 gm 09/16/19 09:00 09/18/19 08:52 Miralax PO 17 gm DAILY HARRIETT Administration Potassium Chloride 10 meq 09/17/19 08:00 09/18/19 08:51 Klor-Con 10 PO 10 meq QAM-WM HARRIETT Administration Rosuvastatin Calcium 40 mg 09/15/19 09:00 09/18/19 08:52 Crestor PO 40 mg DAILY HARRIETT Administration Sodium Chloride 10 ml 09/16/19 21:00 09/18/19 08:52 Flush - Normal Saline IVF 10 ml Q12HR HARRIETT Administration - Exam General Appearance: NAD, awake alert Eye: PERRL, anicteric sclera ENT: normocephalic atraumatic, no oropharyngeal lesions Neck: supple, symmetric, no JVD, no thyromegaly Heart: RRR, no murmur, no gallops, no rubs Respiratory: CTAB, no wheezes, no rales, no ronchi Gastrointestinal: soft, non-tender, non-distended, normal bowel sounds Extremities: no cyanosis, no clubbing, no edema Skin: normal turgor, no lesions, no rashes Neurological: cranial nerve grossly intact, no focal deficits Musculoskeletal: normal tone, normal strength, no muscle wasting Psychiatric: normal affect, normal behavior Hosp A/P (1) Chest pain Code(s): R07.9 - CHEST PAIN, UNSPECIFIED Status: Acute (2) S/P CABG x 5 Code(s): Z95.1 - PRESENCE OF AORTOCORONARY BYPASS GRAFT Status: Acute (3) Morbid obesity with BMI of 40.0-44.9, adult Code(s): E66.01 - MORBID (SEVERE) OBESITY DUE TO EXCESS CALORIES; Z68.41 - BODY MASS INDEX (BMI) 40.0-44.9, ADULT Status: Chronic (4) Anemia, normocytic normochromic Code(s): D64.9 - ANEMIA, UNSPECIFIED Status: Chronic (5) CAD (coronary artery disease) Code(s): I25.10 - ATHSCL HEART DISEASE OF [place] CORONARY ARTERY W/O ANG PCTRS Status: Chronic Qualifiers: Coronary Disease-Associated Artery/Lesion type: jena artery [place] vs. transplanted heart: jena heart Associated angina: with stable angina Qualified Code(s): I25.118 - Atherosclerotic heart disease of [place] coronary artery with other forms of angina pectoris (6) HTN (hypertension) Code(s): I10 - ESSENTIAL (PRIMARY) HYPERTENSION Status: Chronic Qualifiers: Hypertension type: essential hypertension Qualified Code(s): I10 - Essential (primary) hypertension (7) Dyslipidemia Code(s): E78.5 - HYPERLIPIDEMIA, UNSPECIFIED Status: Chronic (8) GERD (gastroesophageal reflux disease) Code(s): K21.9 - GASTRO-ESOPHAGEAL REFLUX DISEASE WITHOUT ESOPHAGITIS Status: Chronic Qualifiers: Esophagitis presence: without esophagitis Qualified Code(s): K21.9 - Gastro -esophageal reflux disease without esophagitis - Plan old records reviewed/req, plan discussed w/ family 09/15/19- continue post op care as per CV surgery protocol has chest tube in place pain controlled medication reviewed as above symptomatic treatment 09/16/19 post cabg doing well i spoke with cymraes interpretor phone and updated current plan medication reviewed 09/17/19 continue current medical therapy medication reviewed as above symptomatic treatment stable and improving will dc when CV surgery OK 09/18/19 medication reviewed as above symptomatic treatment continue cardiac reahb stable medically
[2019-09-18 11:06] VITALS: TEMP 99.3
[2019-09-18 12:26] VITALS: BP 144/77
--- NOTE | 2019-09-18 13:32 | PDOC.CPN ---
- Subjective Date: 09/18/19 Time: 13:34 Interval history: The pt seen and examined. No overnight events. No cardiac complaints. - Objective Allergies/Adverse Reactions: Allergies Allergy/AdvReac Type Severity Reaction Status Date / Time No Known Drug Allergies Allergy Verified 09/09/19 23:01 Visit Medications: Current Medications Acetaminophen (Tylenol) 650 mg PO Q6H PRN PRN Reason: Headache/Fever Or Mild Pain Last Admin: 09/17/19 15:40 Dose: 650 mg Hydrocodone Bitart/Acetaminophen ([place] 5/325) 1 tab PO Q4H PRN PRN Reason: Moderate Pain (4-6) Last Admin: 09/18/19 11:07 Dose: 1 tab Hydrocodone Bitart/Acetaminophen ([place] 5/325) 2 tab PO Q4H PRN PRN Reason: Severe Pain (7-10) Last Admin: 09/17/19 15:38 Dose: 2 tab Al Hydroxide/Mg Hydroxide (Maalox) 30 ml PO Q4H PRN PRN Reason: Indigestion Aspirin (Aspirin Chewable) 81 mg PO DAILY [facility] Last Admin: 09/18/19 08:51 Dose: 81 mg Bisacodyl (Dulcolax) 10 mg PO Q12H PRN PRN Reason: Constipation Last Admin: 09/16/19 18:04 Dose: 10 mg Bisacodyl (Dulcolax) 10 mg MN Q12H PRN PRN Reason: Constipation Clopidogrel Bisulfate (Plavix) 75 mg PO DAILY [facility] Last Admin: 09/18/19 08:51 Dose: 75 mg Diphenhydramine HCl (Benadryl) 25 mg PO Q6H PRN PRN Reason: Itching & Insomnia or Leonides Riley Enoxaparin Sodium (Lovenox) 40 mg SC 0900 [facility] Last Admin: 09/18/19 08:52 Dose: 40 mg Famotidine (Pepcid) 20 mg PO BID [facility] [place] Last Admin: 09/18/19 08:52 Dose: 20 mg Furosemide (Lasix) 40 mg PO DAILY [facility] [place] Last Admin: 09/18/19 08:52 Dose: 40 mg Guaifenesin/Dextromethorphan (Robitussin Dm) 15 ml PO Q4H PRN PRN Reason: Cough Lisinopril (Zestril) 10 mg PO DAILY [facility] [place] Last Admin: 09/18/19 08:52 Dose: 10 mg Metoprolol Succinate (Toprol Xl) 25 mg PO DAILY [facility] [place] Last Admin: 09/18/19 08:52 Dose: 25 mg Mineral Oil (Fleet Mineral Oil) 133 ml MN DAILYPRN PRN PRN Reason: Constipation Nitroglycerin (Nitrostat) 0.4 mg SL Q5MIN PRN PRN Reason: Chest Pain Ondansetron HCl (Zofran) 4 mg IVP Q6H PRN PRN Reason: Nausea/Vomiting Last Admin: 09/16/19 19:21 Dose: 4 mg Phenol (Chloraseptic [place] 180 Ml Bot) 0 ml PO PRN PRN PRN Reason: SORE THROAT Last Admin: 09/16/19 18:01 Dose: 1 spray Polyethylene Glycol (Miralax) 17 gm PO DAILY [facility] [place] Last Admin: 09/18/19 08:52 Dose: 17 gm Potassium Chloride (Klor-Con 10) 10 meq PO QAM-WM [facility] [place] Last Admin: 09/18/19 08:51 Dose: 10 meq Rosuvastatin Calcium (Crestor) 40 mg PO DAILY [facility] Last Admin: 09/18/19 08:52 Dose: 40 mg Sodium Chloride (Flush - Normal Saline) 10 ml IVF Q12HR [facility] Last Admin: 09/18/19 08:52 Dose: 10 ml Sodium Chloride (Flush - Normal Saline) 10 ml IVF PRN PRN PRN Reason: Saline Flush Zolpidem Tartrate (Ambien) 5 mg PO HSPRN PRN PRN Reason: Insomnia Vital Signs & Weight: Vital Signs Temp Pulse Pulse Pulse Resp BP BP 09/18/19 12:24 74 75 144/77 H 144/74 H 09/18/19 11:03 99.3 F 78 17 09/18/19 07:27 98.6 F 76 16 09/18/19 04:00 98.4 F 68 16 BP BP Pulse Ox Pulse Ox Pulse Ox 09/18/19 12:24 95 96 09/18/19 11:03 127/78 96 09/18/19 07:27 136/84 95 09/18/19 04:00 137/85 97 Weight 199 lb 8 oz - Physical Exam General: alert & oriented x3 HEENT: mucus membranes moist Neck: supple neck Cardiac: regular rate and rhythm, S1/S2 Lungs: clear to auscultation Neuro: cranial nerve 2-12 intact Abdomen: unremarkable 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 CAD with S/P CABG x 5 - stable VS and with RA; on BBlocker, BLANK, ASA, and Statin; Plavix with hx of stent 2. HTN - stable with current med 3. HLD - on statin 4. Anemia MAR reviewed * The pt will d/c home today; the pt will f/u with Dr Zheng's office within 2 -4wks.
--- NOTE | 2019-09-18 23:34 | DIS ---
DATE OF ADMISSION: 09/09/2019 DATE OF DISCHARGE: 09/18/2019 PRINCIPAL DIAGNOSIS: Coronary artery disease with angina. PROCEDURES PERFORMED: Coronary artery bypass grafting x5 with left internal mammary artery to the LAD, radial artery to the diagonal and reverse greater saphenous vein graft from aorta to the ramus intermedius, the OM1 and OM2 on 09/14/2019. HISTORY OF PRESENT ILLNESS AND HOSPITAL COURSE: The patient is a 44-year-old man who about 6 weeks ago was admitted to the hospital with prolonged chest pain and mild elevation in cardiac enzymes. Cardiac catheterization demonstrated multivessel disease. Shortly prior to planned surgical revascularization, he had recurrent chest pain with ST-elevation consistent with right coronary distribution and he underwent emergent stenting of his right coronary. That hospitalization was complicated by development of a femoral pseudoaneurysm that required surgical repair, but otherwise was fairly uneventful from that point. The plan at that point had been to maintain him on antiplatelet therapy for about a month to 6 weeks and then electively admit him off Brilinta for bypass of his residual left-sided disease. He presented to the hospital late on the night of the after having redeveloped angina. He had negative troponins. His Brilinta was stopped and on the , he underwent surgical revascularization. His distal right coronary proper was calcified and multiple branch vessels were very small. He had an uneventful postoperative recovery. He was started on Plavix in lieu of the Brilinta on postoperative day #1 and transferred to the bedoya on postoperative day #2, he was started on Crestor in addition to dual antiplatelet therapy. DISCHARGE MEDICATIONS: He is now being discharged home with prescription for: 1. Vicodin as needed for pain. 2. Lisinopril 10 mg a day. 3. Toprol-XL 25 mg a day. 4. Baby aspirin a day. 5. Plavix 75 mg a day. Job ID: [id number]
--- NOTE | 2019-09-19 10:01 | DIS ---
DATE OF ADMISSION: 09/09/2019 DATE OF DISCHARGE: 09/18/2019 PRIMARY CARE PHYSICIAN: [facility] Call admission. DISCHARGE DISPOSITION: Home. PRIMARY DISCHARGE DIAGNOSES: 1. Chest pain. 2. Status post CABG x5. SECONDARY DISCHARGE DIAGNOSES: Obesity, hypertension, coronary artery disease, dyslipidemia, normocytic normochromic anemia. PRIMARY PROCEDURE/OPERATION: CABG x5 radiological investigation, echocardiography, chest x-ray. SIGNIFICANT LABORATORY DATA: Hemoglobin 9.2. INR 1.5, creatinine 0.89. DISCHARGE MEDICATIONS: 1. Aspirin 81 mg daily. 2. Plavix 75 mg daily. 3. Pepcid 20 mg b.i.d. 4. [place] 5 one tablet q.4 hourly p.r.n. 5. Lisinopril 10 mg daily. 6. Toprol-XL 25 mg daily. 7. Crestor 40 mg daily. CONTRAINDICATION: None. CODE STATUS: Full code. INPATIENT TECHNICAL TRAINING COORDINATOR: Dr. Lr, Dr. Agrawal. TEST RESULT PENDING ON DISCHARGE: None. ALLERGIES: NO KNOWN DRUG ALLERGIES. DISCHARGE PLAN: Posthospital, the patient will follow up with primary care physician on September 22, 2019, at 8:30 a.m. The patient will follow up with Dr. Petersen and Dr. Lr as instructed. HOSPITAL COURSE: A 44-year-old male, who was admitted for CABG, which was done by Dr. Agrawal. The patient was admitted by Dr. Yahir Montanez, please see his H and P for further details. During this admission, he had CABG x5. Postoperatively, he had mild drop in hemoglobin, but he did not require any blood transfusion. He did not have any complication while in hospital. The patient was discharged by Dr. Agrawal. The patient was also seen and examined on that day. Please see my progress note from that day for more detail. Job ID: [id number]
--- NOTE | 2019-09-20 14:44 | OP ---
DATE OF PROCEDURE: 09/14/2019 PREOPERATIVE DIAGNOSES: 1. Coronary artery disease. 2. Status post inferior myocardial infarction with stenting. POSTOPERATIVE DIAGNOSES: 1. Coronary artery disease. 2. Status post inferior myocardial infarction with stenting. PROCEDURES PERFORMED: Coronary artery bypass graft x5 with a left internal mammary artery to a left anterior descending; saphenous vein graft to ramus, OM1, OM2, which was quite small, and difficult to access prior to its bifurcation; the radial artery to a diagonal, which was 1.5 mm; the right coronary artery could not be bypassed, there were 3 small distal vessels, which were too small to open and graft and the main right coronary artery was either heavily calcified or stented. PHYSICAL METALLURGIST: Dr. Mae. TRANSFUSION: None. DESCRIPTION OF PROCEDURE: After adequate anesthesia had been obtained, Dr. Mae did an endovascular vein harvest while I harvested a segment of left radial artery. Following closure of the left arm wound, the attention was turned to the median sternotomy, where the left internal mammary artery was harvested after sternotomy. The patient was heparinized, mammary divided distally, and passed posterior to the thymus gland. Aorta and right atrium were cannulated. Cardiopulmonary bypass was begun. The vessels were inspected for grafting, following which the aorta was crossclamped and a liter of cold blood cardioplegia given through the aortic root. The distal anastomoses were then completed with the OM1, being about 2 mm, the ramus 1.5, the OM2 of 1 mm, and the diagonal 1.5 mm. Following the cross-clamp removal, a partial occluding clamp was placed and 3 proximal venous anastomoses were performed on the aortic root and the radial was anastomosed to one of the vein grafts. Following the partial occluding clamp removal, it was felt that one of the vein graft was a little bit short, and so the partial occluding clamp was replaced and the vein graft was oversewn on the aortic root and then the vein was then piggybacked off the coy of the vein graft that did not have the radial artery placed. Rings were then placed to leonard these 2 proximal anastomoses. The patient was then weaned from cardiopulmonary bypass. Cannulas were removed and protamine was given systemically. Mediastinal and left pleural drains were placed, following which the sternum was reapproximated with #7 interrupted wire using vancomycin paste on the sternal edges, platelet-rich blood, and platelet-poor plasma. Subcutaneous tissue and skin were closed in layers. Job ID: [id number]
[2019-09-21 10:57] LABS: Actual Bicarbonate (HCO3a) 25.6 mEq/L (22-28); Analyzer IN Cardio OR; Base Excess (BEa) 1.4 mEq/L (-2.0 to +3.0); CO2 Tension 39.4 mmHg (35.0-45.0); Calcium, Ionized 1.17 mmol/L (1.12-1.30); Carboxyhemoglobin (COHb) 0.6 gm% (0.0-3.0); Hemoglobin (Hb) 14.4 g/dL (14.0-18.0); Potassium - ABG Lab 3.99 mmol/L (3.70-5.30); pH, Arterial 7.43 (7.35-7.45)
[2019-09-21 10:58] LABS: Actual Bicarbonate (HCO3a) 23.2 mEq/L (22-28); Analyzer IN Cardio OR; Base Excess (BEa) -0.7 mEq/L (-2.0 to +3.0); CO2 Tension 35.7 mmHg (35.0-45.0); Calcium, Ionized 1.15 mmol/L (1.12-1.30); Carboxyhemoglobin (COHb) 0.7 gm% (0.0-3.0); Hemoglobin (Hb) 13.9 g/dL (14.0-18.0); O2 Tension (PaO2) 192.1 mmHg (80.0-100.0); Potassium - ABG Lab 4.13 mmol/L (3.70-5.30); pH, Arterial 7.43 (7.35-7.45)
[2019-09-21 10:58] LABS: Actual Bicarbonate (HCO3a) 23.4 mEq/L (22-28); Analyzer IN Cardio OR; Base Excess (BEa) 0.2 mEq/L (-2.0 to +3.0); CO2 Tension 32.7 mmHg (35.0-45.0); Calcium, Ionized 0.98 mmol/L (1.12-1.30); Carboxyhemoglobin (COHb) 0.3 gm% (0.0-3.0); Hemoglobin (Hb) 9.7 g/dL (14.0-18.0); Potassium - ABG Lab 4.12 mmol/L (3.70-5.30); pH, Arterial 7.47 (7.35-7.45)
[2019-09-21 10:59] LABS: Actual Bicarbonate (HCO3a) 21.5 mEq/L (22-28); Analyzer IN Cardio OR; Base Excess (BEa) -2.5 mEq/L (-2.0 to +3.0); CO2 Tension 33.8 mmHg (35.0-45.0); Calcium, Ionized 1.03 mmol/L (1.12-1.30); Carboxyhemoglobin (COHb) 0.3 gm% (0.0-3.0); Hemoglobin (Hb) 9.8 g/dL (14.0-18.0); Potassium - ABG Lab 4.49 mmol/L (3.70-5.30); pH, Arterial 7.42 (7.35-7.45)
[2019-09-21 10:59] LABS: Actual Bicarbonate (HCO3a) 23.7 mEq/L (22-28); Analyzer IN Cardio OR; Base Excess (BEa) -0.6 mEq/L (-2.0 to +3.0); CO2 Tension 37.4 mmHg (35.0-45.0); Calcium, Ionized 1.52 mmol/L (1.12-1.30); Carboxyhemoglobin (COHb) 0.1 gm% (0.0-3.0); O2 Tension (PaO2) 469.3 mmHg (80.0-100.0); Potassium - ABG Lab 4.22 mmol/L (3.70-5.30); pH, Arterial 7.42 (7.35-7.45)
[2019-09-21 11:00] LABS: Actual Bicarbonate (HCO3a) 22.5 mEq/L (22-28); Analyzer IN Cardio OR; CO2 Tension 33.1 mmHg (35.0-45.0); Calcium, Ionized 1.27 mmol/L (1.12-1.30); Carboxyhemoglobin (COHb) 0.2 gm% (0.0-3.0); Hemoglobin (Hb) 9.4 g/dL (14.0-18.0); O2 Tension (PaO2) 373.9 mmHg (80.0-100.0); Potassium - ABG Lab 3.99 mmol/L (3.70-5.30); pH, Arterial 7.45 (7.35-7.45)
[2019-09-21 11:00] LABS: Actual Bicarbonate (HCO3a) 25.2 mEq/L (22-28); Analyzer IN Cardio OR; CO2 Tension 38.4 mmHg (35.0-45.0); Calcium, Ionized 1.31 mmol/L (1.12-1.30); Carboxyhemoglobin (COHb) 0.1 gm% (0.0-3.0); Hemoglobin (Hb) 9.5 g/dL (14.0-18.0); Potassium - ABG Lab 4.12 mmol/L (3.70-5.30); pH, Arterial 7.44 (7.35-7.45)
[2019-09-21 11:01] LABS: Actual Bicarbonate (HCO3a) 24.7 mEq/L (22-28); Analyzer IN Cardio OR; Base Excess (BEa) 0.1 mEq/L (-2.0 to +3.0); CO2 Tension 39.9 mmHg (35.0-45.0); Calcium, Ionized 1.53 mmol/L (1.12-1.30); Carboxyhemoglobin (COHb) 0.3 gm% (0.0-3.0); Hemoglobin (Hb) 10.1 g/dL (14.0-18.0); Potassium - ABG Lab 4.22 mmol/L (3.70-5.30); pH, Arterial 7.41 (7.35-7.45)
[2019-09-21 11:02] LABS: Puncture Site ALINE
[2019-09-21 11:02] LABS: Puncture Site ALINE
[2019-09-21 11:03] LABS: O2 Tension (PaO2) 532.7 mmHg (80.0-100.0); Puncture Site ALINE
[2019-09-21 11:04] LABS: Puncture Site ALINE
[2019-09-21 11:05] LABS: O2 Tension (PaO2) 547.8 mmHg (80.0-100.0); Puncture Site ALINE
[2019-09-21 11:07] LABS: Puncture Site ALINE
[2019-09-21 11:07] LABS: O2 Tension (PaO2) 503.3 mmHg (80.0-100.0); Puncture Site ALINE
[2019-09-21 11:08] LABS: O2 Tension (PaO2) 536.6 mmHg (80.0-100.0); Puncture Site ALINE
--- NOTE | 2019-09-24 00:26 | PQF ---
JARETT MONGE SALIM NOORJIBHAI MD [id number] [id number] CLINICAL DOCUMENTATION CLARIFICATION FORM: POST DISCHARGE Addendum to original discharge summary date: ____ Late entry note date: __ DATE:09/24/2019 ATTN:DONNA LEBRON MD Please exercise your independent, professional judgment in responding to the clarification form. Clinical indicators are provided on the bottom of this form for your review Please check appropriate box(s) to clarify if the following diagnosis has been ruled in or ruled out: Acute hypoxic respiratory failure [ x ] Ruled in diagnosis [ ] Continue to treat [ x ] Resolved [ ] Ruled out diagnosis [ ] Cannot rule out diagnosis [ ] Other diagnosis [ ] Unable to determine For continuity of documentation, please document condition throughout progress notes and discharge summary. Thank You. CLINICAL INDICATORS - SIGNS / SYMPTOMS / LABS Respiratiorns 20 and saturation 98% on 2L nasal cannula-Documented in consultation on 09/15 by Louie Romano MD Acute hypoxic respiratory failure,improving-Documented in consultation on 09/15 by Louie Romano MD Obstructive sleep apnea, likely-Documented in consultation on 09/15 by Louie Romano MD He has some crackling in the lungs-Documented in consultation on 09/15 by Louie Romano MD Coronary artery disease,status post coronary artery bypass graft,postop day #1-- Documented in consultation on 09/15 by Louie Romano MD O2 [id number] in Vital signs on 09/17 RISK FACTORS Coronary artery disease,status post coronary artery bypass graft,postop day #1-- Documented in consultation on 09/15 by Louie Romano MD Morbid obesity-Documented in consultation on 09/15 by Louie Romano MD TREATMENTS The patient should be screened for sleep apnea in the otpatient setting- Documented in consultation on 09/15 by Louie Romano MD O2 2L nasal cannula--Documented in consultation on 09/15 by Louie Romano MD 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 All Rights Reserved [email or web address] [email or web address] [not provided] MTDD
== END 2019-09-18 15:40 | disposition home or self-care (01) | DRG 235 ==
LOC: ERS 18:57 → OBSVTOIN 22:53 → 2SW 22:53 → 2NO 09-12 07:31 → CCU 09-14 09:18 → 2NO 09-16 12:22
PROVIDERS: ADMIT Internal Medicine; ATTEND Internal Medicine
PROC: 02100Z9 Bypass Coronary Artery, One Artery from Left Internal Mammary, Open Approach (ICD-10-PCS; principal; 2019-09-15)
PROC: 021209W Bypass Coronary Artery, Three Arteries from Aorta with Autologous Venous Tissue, Open Approach (ICD-10-PCS; 2019-09-15)
PROC: 02100AW Bypass Coronary Artery, One Artery from Aorta with Autologous Arterial Tissue, Open Approach (ICD-10-PCS; 2019-09-15)
PROC: 06BQ4ZZ Excision of Left Saphenous Vein, Percutaneous Endoscopic Approach (ICD-10-PCS; 2019-09-15)
PROC: 03BC4ZZ Excision of Left Radial Artery, Percutaneous Endoscopic Approach (ICD-10-PCS; 2019-09-15)
PROC: 5A1221Z Performance of Cardiac Output, Continuous (ICD-10-PCS; 2019-09-15)
PROC: B24BZZ4 Ultrasonography of Heart with Aorta, Transesophageal (ICD-10-PCS; 2019-09-15)
DX: I25.119 Atherosclerotic heart disease of native coronary artery with unspecified angina pectoris (principal); J96.01 Acute respiratory failure with hypoxia; I24.9 Acute ischemic heart disease, unspecified; R07.9 Chest pain, unspecified; E78.5 Hyperlipidemia, unspecified; D64.9 Anemia, unspecified; Z68.36 Body mass index [BMI] 36.0-36.9, adult; I25.2 Old myocardial infarction; I12.9 Hypertensive chronic kidney disease with stage 1 through stage 4 chronic kidney disease, or unspecified chronic kidney disease; N18.2 Chronic kidney disease, stage 2 (mild); I08.1 Rheumatic disorders of both mitral and tricuspid valves; E66.01 Morbid (severe) obesity due to excess calories; G47.33 Obstructive sleep apnea (adult) (pediatric); K21.9 Gastro-esophageal reflux disease without esophagitis; E11.22 Type 2 diabetes mellitus with diabetic chronic kidney disease
CPT/HCPCS: 36415; 36416; 36430; 71045; 80048; 80053; 80306; 82805; 83690; 84484; 85025; 85610; 85730; 86850; 86900; 86901; 90471; 90686; 90732; 93005; 93010; 93306; 93798; 94002; 94150; 94760; 96372; 96374; G0008; G0009; J0670; J0690; J1642; J1644; J1650; J1815; J1885; J2001; J2150; J2250; J2270; J2370; J2405; J2440; J2704; J2720; J3010; J3370; J3475; J3480; J3490; P9045; P9047; Q0162; S0017; S0028

== ENCOUNTER 2019-10-30 14:25 | Observation (INO) | payer BC ==
--- NOTE | 2019-10-30 14:50 | RAD ---
EXAM: Single view of the chest HISTORY: Chest pain COMPARISON: 09/16/2019 FINDINGS: Single view of the chest shows a normal sized cardiomediastinal silhouette. The patient is status post CABG. There is no evidence of consolidation, mass, or pleural effusion. The bones are unremarkable. IMPRESSION: No evidence of acute cardiopulmonary disease
[2019-10-30 14:55] LABS: #Lymphocytes 2.4 thou/uL (1.20-3.40); #Monocytes 0.7 thou/uL (0.11-0.59); #Neutrophils 3.9 thou/uL (1.40-6.50); %Basophils 0.5 % (0.0-1.0); %Eosinophils 0.5 % (0.0-10.0); %Lymphocytes 34.1 % (21.0-51.0); %Monocytes 10.1 % (0.0-10.0); %Neutrophils 54.8 % (42.0-75.0); Hemoglobin 13.1 g/dL (14.0-18.0); Mean Corpuscular HGB CONC 33.2 g/dL (32.0-36.0); Mean Corpuscular Hemoglobin 28.5 pg (27.0-31.0); Mean Corpuscular Volume 85.9 fL (78.0-98.0); Mean Platelet Volume 8.2 fL (7.4-10.4); Platelet Count 310 thou/uL (130-400); RBC Distribution Width 13.3 % (11.5-14.5); Red Blood Cell (RBC) Count 4.58 mill/uL (4.70-6.10); White Blood Cell (WBC) Count 7.2 thou/uL (4.8-10.8)
[2019-10-30 15:03] LABS: Prothrombin Time 13.5 SEC (12.0-14.7)
[2019-10-30 15:04] LABS: PTT 33.4 SEC (22.9-36.1)
[2019-10-30 15:18] LABS: ALT (SGPT) 15 U/L (8-55); AST (SGOT) 11 U/L (5-34); Albumin 4.6 g/dL (3.5-5.0); Alkaline Phosphatase 59 U/L (40-110); Anion Gap 13 mmol/L (10-20); BUN (Urea Nitrogen) 14 mg/dL (8.9-20.6); Bilirubin, Total 0.4 mg/dL (0.2-1.2); Calc. Creatinine Clearance 0 mL/min (70-130); Calcium 10.2 mg/dL (7.8-10.44); Carbon Dioxide 27 mmol/L (22-29); Chloride 103 mmol/L (98-107); Estimated GFR-MDRD 76; Globulin 3.5 g/dL (2.4-3.5); Glucose 96 mg/dL (70-105); Potassium 4.3 mmol/L (3.5-5.1); Protein, Total 8.1 g/dL (6.0-8.3); Sodium 139 mmol/L (136-145)
[2019-10-30 17:40] LABS: Troponin I 0.037 ng/mL (< 0.028)
[2019-10-30] MEDS ORDERED: Aspirin Chewable 81 MG TAB ONE (18:01)
[2019-10-30 20:53] LABS: Troponin I 0.032 ng/mL (< 0.028)
[2019-10-30] MEDS ORDERED: Ondansetron PF 4 MG/2 ML Vial IVP PRN (22:09)
[2019-10-30] MEDS ORDERED: Acetaminophen 650 MG Suppository PR PRN (22:09)
[2019-10-30] MEDS ORDERED: Ondansetron ODT 4 MG TAB PO PRN (22:09)
[2019-10-30 22:51] VITALS: BMI 30.8
[2019-10-30 23:35] LABS: Troponin I 0.026 ng/mL (< 0.028)
--- NOTE | 2019-10-31 02:08 | HP ---
TIME OF ASSESSMENT: 2199. CHIEF COMPLAINT: Chest pain. HISTORY OF PRESENT ILLNESS: Mr. Jaren Otero is a pleasant 44-year-old gentleman with a history of CAD who had an MT 2 months ago and underwent CABG done by Dr. Petersen. The application support lead who followed him during his admission was Dr. Lr. The patient has been undergoing cardiac rehab and presents with complaints of chest pain since yesterday. He states this week he has had increase in his activity level. As per Rehab, he has been doing some exercises with 10-pound weights and had also gone for a longer walk than normal yesterday evening for approximately 2 hours around his neighborhood. The patient states his pain is mild up to a 5/10 in severity, which he describes as a discomfort. He states it settles on its own and has remained intermittent since yesterday. At times, it eases about 2/10 in severity and at times it completely resolves. He is unable to say how often he is having the pain and there is nothing in particular that brings it on or relieves it. The patient felt concerned due to the pain being substernal and though it is nonradiating. It feels similar to what he experienced with his MT. He denies having any associated shortness of breath. Denies any cough, fevers, or chills. No hemoptysis. No abdominal pain. No nausea or vomiting. He does have some discomfort along the midsternal incision whenever he moves a certain way. Has not had any trauma. No skin changes noted to the incision. All other review of systems are negative. PAST MEDICAL HISTORY: 1. CAD. 2. History of MT 2 months ago. 3. Hypertension. PAST SURGICAL HISTORY: 1. Heart stents. 2. CABG, August 2019. SOCIAL HISTORY: The patient denies any tobacco use, alcohol consumption, or illicit drug use. He did drink heavily in the past, but quit. ALLERGIES: NO KNOWN DRUG ALLERGIES. CURRENT MEDICATIONS: 1. Aspirin. 2. Clopidogrel. 3. Famotidine. 4. [place]. 5. Lisinopril. 6. Toprol-XL. 7. Crestor. PHYSICAL EXAMINATION: GENERAL: The patient appears well developed, well nourished, is in no acute distress. He is resting comfortably on the stretcher. VITAL SIGNS: Temperature 99, pulse 66, blood pressure 126/82, respirations 16, O2 saturation 98% on room air. HEENT: Normocephalic and atraumatic. Pupils are equal, round, and reactive to light. Sclerae icterus. Oropharynx is clear. NECK: Supple. No lymphadenopathy. LUNGS: Clear to auscultation bilaterally without any wheezes, rales, or rhonchi. CARDIAC: Regular rate and rhythm without audible murmurs, rubs, or gallops. Mild discomfort along the midsternal incision which appears to be healing well without any surrounding erythema, swelling, or discharge. No evidence of infection. ABDOMEN: Soft, nontender, nondistended. Normoactive bowel sounds present. No guarding or rigidity. EXTREMITIES: No lower leg swelling or edema. No calf tenderness. NEUROLOGIC: Alert and oriented x3. No neuro deficits on exam. SKIN: Warm and dry. EMERGENCY DEPARTMENT COURSE: In the emergency department, he underwent laboratory studies which showed a white count of 7.2, hemoglobin 13.1, hematocrit 39.4, platelets 310, neutrophils 54.8%. Sodium 139, potassium 4.3, chloride 103, anion gap 13, BUN 14, creatinine 1.05, GFR 76, glucose 96, calcium 10.2, total bilirubin 0.4, AST 11, ALT 15, alkaline phosphatase 59. Troponin negative 0.037, 0.032. Serum protein 8.1, albumin 4.6. Chest x-ray done showed no evidence of acute intrathoracic disease. He is noted to be status post CABG with normal size cardiomediastinal silhouette. He has an echo done back in August 2019 at which time, he was noted to have an EF of 50% to 55% with a mildly dilated left atrium, mild mitral regurgitation, sclerotic aortic valve, mild tricuspid regurgitation. In the emergency department, the patient underwent an EKG which demonstrated a normal sinus rhythm with a heart rate of [address] changes or T-wave abnormalities. A 2nd troponin was done showing no dynamic changes. He was treated with 324 mg of aspirin. IMPRESSION AND PLAN: Mr. Eastman is a very pleasant 44-year-old gentleman who is known to have coronary artery disease and hypertension, status post CABG 2 months ago after presenting with an MT. The patient underwent surgery by Dr. Petersen and had a CABG x5 (LAD, OM1, OM2, diagonal). The right coronary artery could not be bypassed. There were three small distal vessels too small to open and graft and the main right coronary artery was heavily calcified or stented. Troponins have been trended and initial troponin was negative, second was indeterminate at 0.037 and third one was slightly better 0.032. The patient states he continues to have intermittent discomfort up to level 5/10. We will go ahead and repeat a 3rd EKG. He is very anxious that he may be having another MT. We will repeat a 4th troponin. We will also add a BNP. We will plan to keep him n.p.o. at midnight and have consulted Dr. Lr. We will consult Cardiac Rehab as well and he will be admitted for continuous cardiac monitoring and further investigation. We will add a magnesium to his labs. We will resume home medications once verified. We will monitor blood pressure. Code status is full. His surrogate decision maker is his , Colleen Siddiqui. The patient's case discussed with attending who agrees with plan of care as described above. Job ID: [id number]
[2019-10-31 05:02] LABS: #Eosinphils 0.1 thou/uL (0.0-0.7); #Lymphocytes 2.1 thou/uL (1.20-3.40); #Monocytes 0.7 thou/uL (0.11-0.59); #Neutrophils 3.1 thou/uL (1.40-6.50); %Basophils 0.6 % (0.0-1.0); %Eosinophils 1.8 % (0.0-10.0); %Lymphocytes 35.1 % (21.0-51.0); %Monocytes 11.9 % (0.0-10.0); %Neutrophils 50.6 % (42.0-75.0); Hemoglobin 12.7 g/dL (14.0-18.0); Mean Corpuscular HGB CONC 32.5 g/dL (32.0-36.0); Mean Corpuscular Hemoglobin 27.8 pg (27.0-31.0); Mean Corpuscular Volume 85.6 fL (78.0-98.0); Mean Platelet Volume 8.2 fL (7.4-10.4); Platelet Count 296 thou/uL (130-400); RBC Distribution Width 13.3 % (11.5-14.5); Red Blood Cell (RBC) Count 4.55 mill/uL (4.70-6.10); White Blood Cell (WBC) Count 6.1 thou/uL (4.8-10.8)
[2019-10-31 05:19] LABS: Anion Gap 14 mmol/L (10-20); BUN (Urea Nitrogen) 14 mg/dL (8.9-20.6); Calc. Creatinine Clearance 132 mL/min (70-130); Calcium 9.4 mg/dL (7.8-10.44); Carbon Dioxide 25 mmol/L (22-29); Chloride 107 mmol/L (98-107); Estimated GFR-MDRD Greater than 90; Glucose 113 mg/dL (70-105); Potassium 3.7 mmol/L (3.5-5.1); Sodium 142 mmol/L (136-145)
[2019-10-31] MEDS: Clopidogrel Bisulfate 75 MG TAB PO SCH (09:25)
[2019-10-31] MEDS: Lisinopril 10 MG TAB PO SCH (09:25)
[2019-10-31] MEDS: Aspirin Chewable 81 MG TAB PO SCH (09:25)
[2019-10-31] MEDS: Famotidine/PF 20 mg/2ml Vial SLOW IVP SCH ×2 (09:25→20:56)
[2019-10-31] MEDS: Rosuvastatin 20 MG TAB PO SCH (09:26)
[2019-10-31] MEDS: Acetaminophen 325 MG TAB PO PRN (09:32)
[2019-10-31] MEDS ORDERED: HYDROcodone/Acetaminophen 5/325 mg Tablet PO PRN (14:12)
[2019-10-31] MEDS ORDERED: Ketorolac Tromethamine 30 MG/ML VIAL IVP PRN (15:01)
--- NOTE | 2019-10-31 15:02 | PDOC.HOSPP ---
- Subjective Encounter Date: 10/31/19 Encounter Time: 07:00 Subjective: Pt seen for followup re: chest pain. c/o ongoing retrosternal chest discomfort. - Objective Vital Signs & Weight: Vital Signs (12 hours) Temp Pulse Resp BP BP BP Pulse Ox 10/31/19 11:28 98.4 F 65 16 128/70 97 10/31/19 09:25 116/74 10/31/19 07:41 98.7 F 61 18 116/74 98 10/31/19 04:14 98.3 F 63 20 119/72 99 Weight Weight 185 lb 1.6 oz I&O: 10/30/19 10/31/19 11/01/19 06:59 06:59 06:59 Intake Total 360 600 Output Total 450 400 Balance -90 200 Result Diagrams: 10/31/19 04:44 10/31/19 04:44 Additional Labs: Labs and MARs reviewed by [place] Hospitalist ROS - Review of Systems Cardiovascular: reports: chest pain. denies: palpitations, orthopnea, paroxysmal noc. dyspnea, edema, light headedness Gastrointestinal: denies: nausea, vomiting, abdominal pain, diarrhea, constipation, melena, hematochezia - Medication Medications: Active Medications Generic Name Dose Route Start Last Admin Trade Name Freq PRN Reason Stop Dose Admin Acetaminophen 650 mg 10/30/19 22:09 10/31/19 09:32 Tylenol PO 650 mg Q4H PRN Administration Headache/Fever/Mild Pain (1-3) Hydrocodone Bitart/Acetaminophen 1 tab 10/31/19 14:12 10/31/19 14:39 [place] 5/325 PO 1 tab Q6H PRN Administration Moderate to Severe Pain (6-10) Aspirin 81 mg 10/31/19 09:00 10/31/19 09:25 Aspirin Chewable PO 81 mg DAILY [place] Administration Clopidogrel Bisulfate 75 mg 10/31/19 09:00 10/31/19 09:25 Plavix PO 75 mg DAILY HARRIETT Administration Famotidine 20 mg 10/31/19 09:00 10/31/19 09:25 Pepcid SLOW IVP 20 mg Q12HR HARRIETT Administration Lisinopril 10 mg 10/31/19 09:00 10/31/19 09:25 Zestril PO 10 mg DAILY HARRIETT Administration Metoprolol Succinate 25 mg 10/31/19 09:00 10/31/19 09:26 Toprol Xl PO Not Given DAILY [facility] Rosuvastatin Calcium 40 mg 10/31/19 09:00 10/31/19 09:26 Crestor PO 40 mg DAILY HARRIETT Administration - Exam General - other findings: Obese Eye: anicteric sclera ENT: moist mucosa Neck: supple, no JVD Heart: RRR, no rubs Respiratory: CTAB, no rales Gastrointestinal: soft, non-tender Extremities: no edema Psychiatric: normal affect, normal behavior Hosp A/P (1) Chest pain Code(s): R07.9 - CHEST PAIN, UNSPECIFIED Status: Acute (2) Dyslipidemia Code(s): E78.5 - HYPERLIPIDEMIA, UNSPECIFIED Status: Chronic (3) GERD (gastroesophageal reflux disease) Code(s): K21.9 - GASTRO-ESOPHAGEAL REFLUX DISEASE WITHOUT ESOPHAGITIS Status: Chronic Qualifiers: Esophagitis presence: without esophagitis Qualified Code(s): K21.9 - Gastro -esophageal reflux disease without esophagitis (4) HTN (hypertension) Code(s): I10 - ESSENTIAL (PRIMARY) HYPERTENSION Status: Chronic Qualifiers: Hypertension type: essential hypertension Qualified Code(s): I10 - Essential (primary) hypertension (5) Obesity (BMI 30-39.9) Code(s): E66.9 - OBESITY, UNSPECIFIED Status: Chronic (6) CAD (coronary artery disease) Code(s): I25.10 - ATHSCL HEART DISEASE OF [place] CORONARY ARTERY W/O ANG PCTRS Status: Chronic Qualifiers: Coronary Disease-Associated Artery/Lesion type: [place] artery [place] vs. transplanted heart: [place] heart Associated angina: with stable angina Qualified Code(s): I25.118 - Atherosclerotic heart disease of [place] coronary artery with other forms of angina pectoris - Plan DVT proph w/SCDs Continue Crestor. Continue lisinopril and Toprol XL. Monitor vital signs and titrate antihypertensives as needed. Await cardiology input.
--- NOTE | 2019-10-31 18:55 | PRG ---
DATE OF SERVICE: SUBJECTIVE: Mr. Jaren Otero is back to the hospital today. He has been having some chest discomfort. He said it is much better today. He has been exercising on rehab, done fine, but had this discomfort brought him back to the hospital. The patient did have previous bypass surgery as outlined before. He has a complicated course. The patient was being taken down for open heart surgery, when he had the onset of an acute HI, he was taken to the biology laboratory assistant, stents were placed in two locations in the right coronary artery, but there was an area that was still suboptimally expanded, but a stent could not be placed past the first stent. He underwent surgery, but the right coronary artery was not bypassable. The patient came back to the hospital as outlined above. OBJECTIVE: VITAL SIGNS: Today, his blood pressure is 126/79, pulse 76 and regular. LUNGS: Clear. CARDIAC: Normal S1, normal S2. ABDOMEN: Soft and nontender. LABORATORY DATA: Troponin peak 0.032. ASSESSMENT: Recurrent chest pain, probably related to the right coronary artery or at least some branches of that vessel. PLAN: 1. We will add Ranex[place]. 2. Probably home tomorrow afternoon if doing well. 3. P.r.n. nitroglycerin. 4. Continue with cardiac rehab. Job ID: [id number]
[2019-10-31] MEDS: Famotidine 20 MG TAB PO SCH (20:53)
[2019-11-01 05:31] LABS: Cardiac Risk 3.4 (Less than 4.5)
[2019-11-01] MEDS: Famotidine 20 MG TAB PO SCH (09:55)
[2019-11-01] MEDS: Clopidogrel Bisulfate 75 MG TAB PO SCH (09:55)
[2019-11-01] MEDS: Rosuvastatin 20 MG TAB PO SCH (09:55)
[2019-11-01] MEDS: Lisinopril 10 MG TAB PO SCH (09:56)
[2019-11-01] MEDS: Aspirin Chewable 81 MG TAB PO SCH (09:56)
[2019-11-01] MEDS: Famotidine/PF 20 mg/2ml Vial SLOW IVP SCH (11:19)
[2019-11-01 15:22] VITALS: BP 130/75; TEMP 98.1
[2019-11-01] MEDS: Acetaminophen 325 MG TAB PO PRN (16:57)
--- NOTE | 2019-11-01 20:52 | DIS ---
DATE OF ADMISSION: 10/30/2019 DATE OF DISCHARGE: 11/01/2019 PRIMARY CARE PROVIDER: Dr. Monique De Los Santos. DISCHARGE DIAGNOSES: 1. Chest pain. 2. Chest pain most likely secondary to cardiac etiology. CONDITION OF PATIENT ON THE DAY OF DISCHARGE: Stable. I assessed Mr. Jaren Otero on the day of discharge. He reports improvement in his chest pain. Vital signs are stable. S1 and S2 are heard, regular. Lungs are clear to auscultation bilaterally. DISCHARGE MEDICATIONS: He has been started on Ran[place] 1000 mg 2 times a day. Otherwise, no change was made to his pre-admission home medications, which include: 1. [place] p.r.n. 2. Aspirin 81 mg daily. 3. Plavix 75 mg daily. 4. Pepcid 20 mg 2 times a day. 5. Lisinopril 10 mg daily. 6. Toprol-XL 25 mg daily. 7. Crestor 40 mg daily. CONSULTATION DURING THIS HOSPITALIZATION: Cardiology, Dr. Lr. POST-DISCHARGE FOLLOWUP: With primary care provider in [address] Lr in 3 to 4 weeks. HOSPITAL COURSE: Mr. Jaren Otero is a pleasant 44-year-old gentleman, who was admitted to [facility] for chest pain. He was seen by Cardiology Service. It was felt that he had recurrent chest pain, probably related to the right coronary artery or at least some branches of that vessel because that vessel could not be bypassed during his surgery. He was started on [place] with improvement in symptoms. He has been advised to continue medical management. He is being discharged home in a stable condition. Many thanks for allowing me to participate in your patient's care. Please feel free to contact me with any questions or concerns. DISCHARGE DESTINATION: Home. Job ID: [id number]
== END 2019-11-01 17:09 | disposition home or self-care (01) ==
LOC: ERS 14:25 → 2SW 18:51
PROVIDERS: ADMIT Hospitalist; ATTEND Hospitalist
DX: R07.2 Precordial pain (principal); I25.118 Atherosclerotic heart disease of native coronary artery with other forms of angina pectoris; I25.2 Old myocardial infarction; E78.5 Hyperlipidemia, unspecified; K21.9 Gastro-esophageal reflux disease without esophagitis; E66.9 Obesity, unspecified; Z68.30 Body mass index [BMI] 30.0-30.9, adult; Z79.82 Long term (current) use of aspirin; Z79.899 Other long term (current) drug therapy; Z95.1 Presence of aortocoronary bypass graft; Z95.5 Presence of coronary angioplasty implant and graft
CPT/HCPCS: 36415; 71045; 80048; 80053; 80061; 83735; 83880; 84484; 85025; 85610; 85730; 93005; 93798; 96374; 96375; G0378; J1885; S0028

== ENCOUNTER 2023-06-28 15:56 | Observation (INO) | payer BC ==
[2023-06-28 16:20] LABS: %Basophils 0.3 % (0.0-1.0); %Eosinophils 0.3 % (0.0-10.0); %Monocytes 10.1 % (0.0-10.0); Hematocrit 47.8 % (42.0-52.0); Mean Corpuscular HGB CONC 33.5 g/dL (32.0-36.0); Mean Corpuscular Hemoglobin 28.6 pg (27.0-31.0); Mean Corpuscular Volume 85.5 fl (78.0-98.0); Mean Platelet Volume 10.2 fL (7.4-10.4); Platelet Count 281 10x3/uL (130-400); RBC Distribution Width 13.4 % (11.5-14.5); Red Blood Cell (RBC) Count 5.59 mill/uL (4.70-6.10); White Blood Cell (WBC) Count 9.4 10x3/uL (4.8-10.8)
[2023-06-28 16:45] LABS: ALT (SGPT) 19 U/L (8-55); AST (SGOT) 17 U/L (5-34); Albumin 4.7 g/dL (3.5-5.0); Alkaline Phosphatase 56 U/L (40-110); Anion Gap 20 mmol/L (10-20); BUN (Urea Nitrogen) 76 mg/dL (8.9-20.6); Bilirubin, Total 0.4 mg/dL (0.2-1.2); Calc. Creatinine Clearance 0 mL/min (70-130); Calcium 9.8 mg/dL (7.8-10.44); Carbon Dioxide 21 mmol/L (22-29); Chloride 95 mmol/L (98-107); Estimated GFR 16; Globulin 3.5 g/dL (2.4-3.5); Glucose 134 mg/dL (70-105); Potassium 3.9 mmol/L (3.5-5.1); Protein, Total 8.2 g/dL (6.0-8.3); Sodium 132 mmol/L (136-145)
[2023-06-28] MEDS ORDERED: Ondansetron PF 4 MG/2 ML Vial ONE (16:48)
[2023-06-28 18:16] LABS: Bacteria/HPF None Seen HPF (None Seen); Bilirubin Negative (Negative); Blood, Urine Negative (Negative); CAUTI Indications for Culture Pelvic or flank pain; Clarity Clear (Clear); Glucose, Urine (Dipstick) Normal (Negative); Ketone, Urine Negative (Negative); Leukocyte Negative Leu/uL (Negative); Nitrite Negative (Negative); Protein, Urine (Dipstick) Negative (Neg-Trace); RBC/HPF 0-3 HPF (0-3); Specific Gravity, Urine 1.011 (1.002-1.036); Squamous Epithelial 0-3 HPF (0-3); Urobilinogen Normal mg/dL (Less than 2); WBC/HPF 0-3 HPF (0-3)
[2023-06-28 18:17] LABS: Urine Culture Reflex No No
[2023-06-28] MEDS ORDERED: Ondansetron PF 4 MG/2 ML Vial IVP PRN (18:28)
[2023-06-28] MEDS ORDERED: Ondansetron ODT 4 MG TAB PO PRN (18:28)
[2023-06-28] MEDS ORDERED: Acetaminophen 325 MG TAB PO PRN (18:28)
[2023-06-28] MEDS: Sodium Chloride 0.9% 1,000 ML IV SCH (19:43)
[2023-06-28 20:00] VITALS: BMI 38.7
[2023-06-28 20:25] LABS: Troponin I Less than 0.010 ng/mL (< 0.028)
[2023-06-28 20:27] LABS: Magnesium 2.4 mg/dL (1.6-2.6)
[2023-06-28 22:32] LABS: Troponin I Less than 0.010 ng/mL (< 0.028)
[2023-06-29] MEDS: Sodium Chloride 0.9% 1,000 ML IV SCH ×3 (00:52→08:23)
[2023-06-29 05:02] LABS: #Monocytes 0.8 thou/uL (0.11-0.59); #Neutrophils 3.4 thou/uL (1.40-6.50); %Basophils 0.2 % (0.0-1.0); %Eosinophils 0.5 % (0.0-10.0); %Lymphocytes 34.8 % (21.0-51.0); %Monocytes 11.9 % (0.0-10.0); %Neutrophils 52.4 % (42.0-75.0); Hematocrit 43.5 % (42.0-52.0); Hemoglobin 14.1 g/dL (14.0-18.0); Mean Corpuscular HGB CONC 32.4 g/dL (32.0-36.0); Mean Corpuscular Hemoglobin 28.6 pg (27.0-31.0); Platelet Count 234 10x3/uL (130-400); RBC Distribution Width 13.6 % (11.5-14.5); Red Blood Cell (RBC) Count 4.93 mill/uL (4.70-6.10); White Blood Cell (WBC) Count 6.6 10x3/uL (4.8-10.8)
[2023-06-29 05:13] LABS: Mean Corpuscular Volume 88.2 fl (78.0-98.0)
[2023-06-29 05:39] LABS: Anion Gap 12 mmol/L (10-20); BUN (Urea Nitrogen) 48 mg/dL (8.9-20.6); Calc. Creatinine Clearance 71 mL/min (70-130); Calcium 8.6 mg/dL (7.8-10.44); Carbon Dioxide 23 mmol/L (22-29); Chloride 106 mmol/L (98-107); Estimated GFR 52; Glucose 101 mg/dL (70-105); Potassium 4.4 mmol/L (3.5-5.1); Sodium 137 mmol/L (136-145)
[2023-06-30] MEDS: Sodium Chloride 0.9% 1,000 ML IV SCH (03:13)
[2023-06-30 04:59] LABS: #Eosinphils 0.1 thou/uL (0.0-0.7); #Monocytes 0.7 thou/uL (0.11-0.59); #Neutrophils 3.6 thou/uL (1.40-6.50); %Basophils 0.3 % (0.0-1.0); %Eosinophils 1.3 % (0.0-10.0); %Neutrophils 53.3 % (42.0-75.0); Hematocrit 45.2 % (42.0-52.0); Hemoglobin 14.4 g/dL (14.0-18.0); Mean Corpuscular HGB CONC 31.9 g/dL (32.0-36.0); Mean Corpuscular Hemoglobin 28.9 pg (27.0-31.0); Mean Corpuscular Volume 90.8 fl (78.0-98.0); Mean Platelet Volume 10.3 fL (7.4-10.4); Platelet Count 218 10x3/uL (130-400); RBC Distribution Width 13.5 % (11.5-14.5); Red Blood Cell (RBC) Count 4.98 mill/uL (4.70-6.10); White Blood Cell (WBC) Count 6.7 10x3/uL (4.8-10.8)
[2023-06-30 05:26] LABS: Albumin 3.8 g/dL (3.5-5.0); Anion Gap 12 mmol/L (10-20); BUN (Urea Nitrogen) 23 mg/dL (8.9-20.6); BUN/Creatinine Ratio 22.12; CK (CPK) 258 U/L (30-200); Calc. Creatinine Clearance 109 mL/min (70-130); Calcium 9.1 mg/dL (7.8-10.44); Carbon Dioxide 23 mmol/L (22-29); Chloride 106 mmol/L (98-107); Estimated GFR 88; Glucose 95 mg/dL (70-105); Potassium 4.9 mmol/L (3.5-5.1); Sodium 136 mmol/L (136-145)
[2023-06-30 08:37] VITALS: BP 121/72; TEMP 98.9
[2023-06-30] MEDS ORDERED: Aspirin Chewable 81 MG TAB PO SCH (09:00)
[2023-06-30] MEDS ORDERED: Clopidogrel Bisulfate 75 MG TAB PO SCH (09:00)
[2023-06-30] MEDS ORDERED: Famotidine 20 MG TAB PO SCH (09:00)
[2023-06-30] MEDS ORDERED: Ezetimibe 10 MG TAB PO SCH (09:00)
[2023-06-30] MEDS ORDERED: Rosuvastatin 20 MG TAB PO SCH (21:00)
== END 2023-06-30 11:20 | disposition home or self-care (01) ==
LOC: ERS 15:56 → SURG B 17:55
PROVIDERS: ADMIT Family Medicine; ATTEND Internal Medicine
DX: N17.9 Acute kidney failure, unspecified (principal); I25.10 Atherosclerotic heart disease of native coronary artery without angina pectoris; I10 Essential (primary) hypertension; Z95.5 Presence of coronary angioplasty implant and graft; E78.00 Pure hypercholesterolemia, unspecified; E78.5 Hyperlipidemia, unspecified; E66.9 Obesity, unspecified; Z79.82 Long term (current) use of aspirin; Z68.39 Body mass index [BMI] 39.0-39.9, adult; Z79.02 Long term (current) use of antithrombotics/antiplatelets; Z79.899 Other long term (current) drug therapy
CPT/HCPCS: 36415; 71045; 80048; 80053; 80069; 81001; 82550; 83735; 83880; 84484; 85025; 93005; 96361; 96374; G0378; J2405; J7050